=== PATIENT | male | born 1950 | race Caucasian/White ===

== ENCOUNTER 2016-11-05 13:15 | Inpatient (IN) | payer MEDICARE ==
[2016-11-05 13:35] VITALS: BMI 29.8
[2016-11-12] MEDS ORDERED: Sodium Chloride 0.9% 100 ML ONE ×2 (09:37→12:41)
[2016-11-12] MEDS ORDERED: Vancomycin HCl 1.5 GM, Admixture Fee 1 EACH in Sodium Chloride 0.9% 250 ML 300 ML IVPB SCH (09:45)
[2016-11-12] MEDS ORDERED: Diazepam 5 MG TAB PO PRN (10:26)
[2016-11-12] MEDS ORDERED: valACYclovir HCl 1 GM TAB PO PRN (10:26)
[2016-11-12] MEDS ORDERED: traMADol HCl 50 MG TAB PO PRN ×3 (10:26→10:45)
[2016-11-12] MEDS ORDERED: Fentanyl 100 MCG/2 ML VIAL SLOW IVP PRN ×2 (10:27)
[2016-11-12] MEDS ORDERED: HYDROcodone/Acetaminophen 10/325 mg Tablet PO PRN ×2 (10:27)
[2016-11-12] MEDS ORDERED: Promethazine HCl 25 MG/ML VIAL IM PRN ×3 (10:27→12:28)
[2016-11-12] MEDS ORDERED: Acetaminophen 325 MG TAB PO PRN (10:27)
[2016-11-12] MEDS ORDERED: diphenhydrAMINE HCl 25 MG CAP PO PRN ×2 (10:27→10:45)
[2016-11-12] MEDS ORDERED: Ondansetron HCl/PF 4 MG/2 ML Vial IVP PRN ×3 (10:27→12:28)
[2016-11-12] MEDS ORDERED: Zolpidem Tartrate 5 MG TAB PO PRN ×2 (10:27→10:45)
[2016-11-12] MEDS ORDERED: Tranexamic Acid 1,000 MG in Sodium Chloride 0.9% 100 ML IVPB SCH ×2 (10:30→12:30)
[2016-11-12] MEDS ORDERED: diphenhydrAMINE HCl 50 MG/ML 1 ML VIAL IVP PRN (10:45)
[2016-11-12] MEDS ORDERED: Naloxone HCl 0.4 mg/ml Vial IV PRN (10:45)
[2016-11-12] MEDS ORDERED: Eucerin (Mineral Oil/Petrolatum,White) 30 gm Jar TOP PRN (10:45)
[2016-11-12] MEDS ORDERED: HYDROcodone/Acetaminophen 5/325 mg Tablet PO PRN (10:45)
[2016-11-12] MEDS ORDERED: diphenhydrAMINE HCl 50 MG/ML 1 ML VIAL IM PRN (10:45)
[2016-11-12] MEDS ORDERED: Naloxone HCl 0.4 mg/ml Vial IVP PRN (10:45)
[2016-11-12] MEDS ORDERED: Bupivacaine 0.25% 10 ML VIAL EPIDURAL PRN (10:45)
[2016-11-12] MEDS ORDERED: Ketorolac Tromethamine 30 MG/ML VIAL IVP PRN (10:45)
[2016-11-12] MEDS ORDERED: Fentanyl/Bupivacaine 250 ML in Premix Bag 1 BAG EPIDURAL SCH (10:45)
[2016-11-12] MEDS ORDERED: Promethazine HCl 25 MG SUPP PR PRN (10:45)
[2016-11-12] MEDS ORDERED: Propofol 200 MG/20 ML VIAL ONE (10:57)
[2016-11-12] MEDS ORDERED: Lidocaine 1% PF 5 ML VIAL ONE (10:57)
[2016-11-12] MEDS ORDERED: Ondansetron HCl/PF 4 MG/2 ML Vial ONE (10:57)
[2016-11-12] MEDS ORDERED: Glycopyrrolate 0.2 MG/ML 5 ML SYRINGE ONE (10:57)
[2016-11-12] MEDS ORDERED: Tadalafil [Cialis] 20 MG PO SCH (11:30)
[2016-11-12] MEDS ORDERED: Bupivacaine 0.25% HCL 30 ML VIAL ONE (12:00)
[2016-11-12] MEDS ORDERED: Fentanyl 100 MCG/2 ML VIAL ONE (12:02)
[2016-11-12] MEDS ORDERED: Promethazine HCl 25 MG/ML VIAL SLOW IVP PRN (12:28)
[2016-11-12] MEDS ORDERED: Fentanyl/Bupivacaine 250 ML EPIDURAL ONE (12:30)
[2016-11-12] MEDS ORDERED: Ketorolac Tromethamine 30 MG/ML VIAL IM SCH (14:00)
--- NOTE | 2016-11-12 14:10 | RAD ---
TWO VIEWS LEFT HIP: Comparison: None. History: Status post left hip arthroplasty. FINDINGS: Two views of the left hip shows no evidence of acute fracture or dislocation. Mild soft tissue swell ing is seen and is from recent surgery. IMPRESSION: Status post left hip arthroplasty without evidence of complication. POS: [facility]
--- NOTE | 2016-11-12 14:15 | OP ---
PREOPERATIVE DIAGNOSIS: Avascular necrosis and degenerative arthritis of the left hip. POSTOPERATIVE DIAGNOSIS: Avascular necrosis and degenerative arthritis of the left hip. PROCEDURE PERFORMED: Left total hip arthroplasty using a [place] Accolade #3 stem, standard created a -5 head, a 54 mm Tritanium cup with a 36 mm X3 polyethylene liner. SURGEON: Michael Soria M.D. TENNIS PLAYER: Brendon Malone PA-C. BLOOD LOSS: 200 mL SPECIMEN: None. DRAINS: None. COMPLICATIONS: None. PROCEDURE IN DETAIL: After informed consent was obtained in the preoperative holding area, the sruthi ent was taken to the operative suite where general anesthesia was induced. The patient was then pos itioned in the lateral decubitus position. The hip was then prepped and draped in usual sterile fas hion. The patient received preoperative antibiotics. Prior to incision, time-out was called and ana ramirez members of the surgical team agreed upon site, surgeon, and patient. After this, a longitudinal i ncision was made directly over the trochanter, noted by palpation extending 2 fingerbreadths above a nd below the trochanter. The deeper subcutaneous layer was undermined with Bovie electrocautery. T he iliotibial band was encountered and incised sharply and the plane below this was developed bluntl y. A Charnley retractor was placed to hold this opened. The lateral aspect of the trochanter and t he abductor muscles were encountered and then reflected anteriorly off the trochanter using Bovie el ectrocautery. Once this was completed, the anterior capsule was then encountered and identified and copious capsulotomy was carried out, exposing the femoral neck and head. Dislocation maneuver was then performed and an in situ provisional neck cut was then made using the oscillating saw. Attenti on was then turned to acetabular preparation and sequential reaming was carried out up to the approp riate diameter and a trial was then malleted into place with good firm resistance and no pullout. T he permanent acetabular shell was then malleted squarely into place, as was the appropriate liner. Once completed, the wound was copiously irrigated and attention was then turned to femoral preparati on. Flexion and external rotation was performed of the exposed thigh and femoral elevators were the n placed at the proximal aspect of the wound. Canal finder was used to establish the length of the canal and sequential reaming was carried out, followed by broaching. Once the appropriate stability was established with the trial broaches with both flexion, extension and rotational stability, we d id trial with neutral and 2 mm offset incremental necks. Once the appropriate size was decided upon , with good stability noted with flexion, extension, internal and external rotation and shuck being negative, we removed the femoral trial broach and malletted into place the permanent prosthesis with good firm fit, which was also stable to rotation. Again, the hip felt very stable to flexion, exte nsion, internal and external rotation. Leg lengths appeared near anatomic clinically and we were qu ite happy with prosthesis placement. Copious irrigation was then carried out through the entirety o f the wound. Primary closure of the abductors was accomplished with interrupted #2 Vicryl figure-of -eight stitches and the IT band was then closed with interrupted #2 Vicryl, oversewn with a #2 runni ng barbed Quill stitch. Subcutaneous fascia was closed with running barbed Quill stitch and a subcu ticular Monocryl barbed Quill stitch was used for skin closure and augmented with skin cement. A st erile dressing was applied. The procedure was terminated without any complication. All counts were correct. The patient was awakened in the operative suite and taken to the recovery room in stable condition.
[2016-11-12] MEDS: Sodium Chloride 0.9% 1,000 ML IV SCH ×2 (16:00→20:50)
--- NOTE | 2016-11-12 16:20 | PDOC.PN ---
- Subjective Encounter Start Date: 11/12/16 Encounter Start Time: 16:18 Pt seen for management of medical comorbidities, including dyslipidemia. Denies chest pain, shortness of breath, fevers or chills. - Objective MAR Reviewed: Yes Vital Signs & Weight: Vital Signs (12 hours) Temp Pulse Resp BP Pulse Ox 11/12/16 14:00 98.1 F 91 16 104/66 92 L Weight Weight 185 lb Additional Labs: Accuchecks 11/12/16 09:50 POC Glucose 117 H Phys Exam - Physical Examination Constitutional: NAD HEENT: moist MMs Neck: supple Respiratory: clear to auscultation bilateral Cardiovascular: RRR Gastrointestinal: soft s/p L hip surgery Psychiatric: normal affect Dx/Plan (1) Dyslipidemia Code(s): E78.5 - HYPERLIPIDEMIA, UNSPECIFIED Status: Chronic (2) GERD (gastroesophageal reflux disease) Code(s): K21.9 - GASTRO-ESOPHAGEAL REFLUX DISEASE WITHOUT ESOPHAGITIS Status: Chronic - Plan PT/OT * . Continue statin, PPI. s/p L hip surgery. DVT prophylaxis and pain management per orthopedic surgery. Code status; Full Review of Systems - Review of Systems Constitutional: negative: Fever, Chills, Sweats, Weakness, Malaise Respiratory: negative: Cough, Dry, Shortness of Breath, Hemoptysis, SOB with Excertion, Pleuritic Pain, Sputum, Wheezing Cardiovascular: negative: Chest Pain, Palpitations, Orthopnea, Paroxysmal Noc. Dyspnea, Edema, Light Headedness - Medications/Allergies Allergies/Adverse Reactions: Allergies Allergy/AdvReac Type Severity Reaction Status Date / Time No Known Allergies Allergy Unverified 11/12/16 15:12 Medications: Current Medications Acetaminophen (Tylenol) 650 mg PO Q4H PRN PRN Reason: DURAND/ T > 101F; Mild Pain (1-3) Hydrocodone Bitart/Acetaminophen ([place] 5/325) 1 tab PO Q4H PRN PRN Reason: Mild Pain 0-3 Hydrocodone Bitart/Acetaminophen ([place] 5/325) 2 tab PO Q4H PRN PRN Reason: For Moderate Pain 4-6 Amitriptyline HCl (Elavil) 25 mg PO HS [facility] Aspirin (Aspirin) 325 mg PO BID [facility] Atorvastatin Calcium (Lipitor) 40 mg PO HS [facility] Bupivacaine HCl (Marcaine) 5 ml EPIDURAL ONE PRN PRN Reason: UNCONTROLLED PAIN Stop: 11/12/16 23:00 Cefazolin Sodium (Ancef) 2 gm SLOW IVP 0200,1000,1800 [facility] Stop: 11/13/16 02:01 Diphenhydramine HCl (Benadryl) 25 mg PO Q3H PRN PRN Reason: Itching Diphenhydramine HCl (Benadryl) 25 mg IM Q3H PRN PRN Reason: Itching Diphenhydramine HCl (Benadryl) 25 mg IVP Q3H PRN PRN Reason: Itching Ferrous Gluconate (Fergon) 324 mg PO BID-[facility] Sodium Chloride (Normal Saline 0.9%) 1,000 mls @ 100 mls/hr IV .Q10H [facility] Last Admin: 11/12/16 16:00 Dose: Not Given Fentanyl Citrate 250 ml/ (Device) 250 mls @ 6 mls/hr EPIDURAL INF [facility] Iron/Minerals/Multivitamins (Theragran M) 1 tab PO DAILY [facility] Ketorolac Tromethamine (Toradol) 15 mg IM Q8HR [facility] Stop: 11/14/16 14:01 Last Admin: 11/12/16 15:58 Dose: 15 mg Mineral Oil/White Petrolatum (Eucerin Cream) 0 gm TOP PRN PRN PRN Reason: Itching Naloxone HCl (Narcan) 0.2 mg IV Q5MIN PRN PRN Reason: RR <=8 OR OBTUNDED/UNAROUSABLE Naloxone HCl (Narcan) 0.1 mg IVP Q15MIN PRN PRN Reason: URINARY RETENTION Ondansetron HCl (Zofran) 4 mg IVP Q6H PRN PRN Reason: Nausea/Vomiting Pantoprazole Sodium (Protonix) 40 mg PO HS [facility] Gluc Light/Chondro Light A /Vit C/Mn [ Glucosamine 1,500 Complex Capsule] 0 each PO DAILY [facility] Tadalafil [Cialis] (20 Mg) 0 each PO ASDIR [facility] Pregabalin (Lyrica) 300 mg PO BID [facility] Promethazine HCl (Phenergan) 12.5 mg IM Q4H PRN PRN Reason: Nausea/Vomiting Promethazine HCl (Phenergan Suppository) 25 mg [place] Q4H PRN PRN Reason: Nausea/Vomiting Senna/Docusate Sodium (Senokot S) 2 tab PO BID [facility] Sodium Chloride (Flush - Normal Saline) 10 ml IVF PRN PRN PRN Reason: Saline Flush Tramadol HCl (Ultram) 50 mg PO Q6H PRN PRN Reason: Mild Pain 1-3 Tramadol HCl (Ultram) 100 mg PO Q6H PRN PRN Reason: Moderate Pain 4-6 Valacyclovir HCl (Valtrex) 1 gm PO PRN PRN PRN Reason: CANKER SORES Zolpidem Tartrate (Ambien) 5 mg PO HSPRN PRN PRN Reason: Insomnia
[2016-11-12] MEDS: HYDROcodone/Acetaminophen 5/325 mg Tablet PO PRN (17:19)
[2016-11-12] MEDS: Amitriptyline HCl 25 MG TAB PO SCH (20:50)
[2016-11-12] MEDS: Pregabalin 75 MG CAP PO SCH (20:50)
[2016-11-12] MEDS: Atorvastatin Calcium 40 MG TAB PO SCH (20:50)
[2016-11-12] MEDS: Aspirin 325 MG TAB PO SCH (20:51)
[2016-11-13] MEDS: HYDROcodone/Acetaminophen 5/325 mg Tablet PO PRN ×2 (05:12→13:32)
[2016-11-13] MEDS: traMADol HCl 50 MG TAB PO PRN ×2 (05:43→11:09)
[2016-11-13] MEDS: Ketorolac Tromethamine 30 MG/ML VIAL IVP PRN ×2 (05:43→14:20)
[2016-11-13 05:52] LABS: Hematocrit 37.1 % (42.0-52.0); Red Blood Cell (RBC) Count 3.83 mill/uL (4.70-6.10); White Blood Cell (WBC) Count 7.9 thou/uL (4.8-10.8)
[2016-11-13] MEDS: Sodium Chloride 0.9% 1,000 ML IV SCH ×3 (07:53→21:02)
[2016-11-13] MEDS: Senokot S 8.6-50 MG TAB PO SCH ×2 (08:25→19:35)
[2016-11-13] MEDS: Ferrous Gluconate 324 MG TAB PO SCH ×2 (08:25→19:35)
[2016-11-13] MEDS: Multivitamin W/ Minerals 1 TAB PO SCH (08:25)
[2016-11-13] MEDS: Aspirin 325 MG TAB PO SCH ×2 (08:25→19:34)
[2016-11-13] MEDS: Pregabalin 75 MG CAP PO SCH ×2 (08:30→19:36)
[2016-11-13] MEDS ORDERED: VIT C PO SCH (09:00)
[2016-11-13] MEDS ORDERED: MULTIVITAMIN PO SCH (09:00)
[2016-11-13] MEDS ORDERED: IRON MINERALS PO SCH (09:00)
[2016-11-13] MEDS ORDERED: GLUC SU PO SCH (09:00)
[2016-11-13] MEDS ORDERED: CHONDRO SU A PO SCH (09:00)
[2016-11-13] MEDS ORDERED: [UNRECOGNIZED DRUG - OTHER] PO SCH (09:00)
--- NOTE | 2016-11-13 14:13 | PDOC.PN ---
- Subjective Encounter Start Date: 11/13/16 Encounter Start Time: 09:00 Pt seen for followup re; dyslipidemia. Says he feels well. No chest pain, shortness of breath, fevers or chills. - Objective MAR Reviewed: Yes Vital Signs & Weight: Vital Signs (12 hours) Temp Pulse Resp BP BP Pulse Ox 11/13/16 11:18 98.4 F 109 H 18 121/79 92 L 11/13/16 08:00 99.2 F 117 H 18 11/13/16 07:23 99.2 F 117 H 18 125/64 92 L 11/13/16 05:48 111 H 20 134/84 11/13/16 04:46 98.4 F 112 H 16 155/98 H 94 L Weight Admit Weight 185 lb Weight 185 lb I&O: 11/12/16 11/13/16 11/14/16 06:59 06:59 06:59 Intake Total 1800 Output Total 1400 Balance 400 Result Diagrams: 11/13/16 05:13 Phys Exam - Physical Examination Constitutional: NAD HEENT: moist MMs, oral pharynx no lesions Neck: supple Respiratory: no wheezing, no rales, no rhonchi, clear to auscultation bilateral Cardiovascular: RRR, no rub Neurological: moves all 4 limbs Psychiatric: normal affect Dx/Plan (1) Dyslipidemia Code(s): E78.5 - HYPERLIPIDEMIA, UNSPECIFIED Status: Chronic (2) GERD (gastroesophageal reflux disease) Code(s): K21.9 - GASTRO-ESOPHAGEAL REFLUX DISEASE WITHOUT ESOPHAGITIS Status: Chronic - Plan PT/OT, out of bed/ambulate * . Continue statin. Review of Systems - Review of Systems Constitutional: negative: Fever, Chills, Sweats, Weakness, Malaise Respiratory: negative: Cough, Dry, Shortness of Breath, Hemoptysis, SOB with Excertion, Pleuritic Pain, Sputum, Wheezing Cardiovascular: negative: Chest Pain, Palpitations, Orthopnea, Paroxysmal Noc. Dyspnea, Edema, Light Headedness - Medications/Allergies Allergies/Adverse Reactions: Allergies Allergy/AdvReac Type Severity Reaction Status Date / Time No Known Allergies Allergy Unverified 11/12/16 15:12 Medications: Current Medications Acetaminophen (Tylenol) 650 mg PO Q4H PRN PRN Reason: DURAND/ T > 101F; Mild Pain (1-3) Hydrocodone Bitart/Acetaminophen ([place] 5/325) 1 tab PO Q4H PRN PRN Reason: Mild Pain 0-3 Hydrocodone Bitart/Acetaminophen ([place] 5/325) 2 tab PO Q4H PRN PRN Reason: For Moderate Pain 4-6 Last Admin: 11/13/16 13:32 Dose: 2 tab Amitriptyline HCl (Elavil) 25 mg PO HS [facility] Last Admin: 11/12/16 20:50 Dose: 25 mg Aspirin (Aspirin) 325 mg PO BID [facility] Last Admin: 11/13/16 08:25 Dose: 325 mg Atorvastatin Calcium (Lipitor) 40 mg PO HS [facility] Last Admin: 11/12/16 20:50 Dose: 40 mg Diphenhydramine HCl (Benadryl) 25 mg PO Q3H PRN PRN Reason: Itching Last Admin: 11/13/16 11:13 Dose: 25 mg Diphenhydramine HCl (Benadryl) 25 mg IM Q3H PRN PRN Reason: Itching Diphenhydramine HCl (Benadryl) 25 mg IVP Q3H PRN PRN Reason: Itching Ferrous Gluconate (Fergon) 324 mg PO BID-[facility] Last Admin: 11/13/16 08:25 Dose: 324 mg Sodium Chloride (Normal Saline 0.9%) 1,000 mls @ 100 mls/hr IV .Q10H [facility] Last Admin: 11/13/16 13:35 Dose: Not Given Fentanyl Citrate 250 ml/ (Device) 250 mls @ 6 mls/hr EPIDURAL INF [facility] Iron/Minerals/Multivitamins (Theragran M) 1 tab PO DAILY [facility] Last Admin: 11/13/16 08:25 Dose: 1 tab Ketorolac Tromethamine (Toradol) 15 mg IVP Q6H PRN PRN Reason: .MODERATE PAIN 4-6 Stop: 11/17/16 16:44 Last Admin: 11/13/16 05:43 Dose: 15 mg Mineral Oil/White Petrolatum (Eucerin Cream) 0 gm TOP PRN PRN PRN Reason: Itching Naloxone HCl (Narcan) 0.2 mg IV Q5MIN PRN PRN Reason: RR <=8 OR OBTUNDED/UNAROUSABLE Naloxone HCl (Narcan) 0.1 mg IVP Q15MIN PRN PRN Reason: URINARY RETENTION Ondansetron HCl (Zofran) 4 mg IVP Q6H PRN PRN Reason: Nausea/Vomiting Pantoprazole Sodium (Protonix) 40 mg PO HS [facility] Last Admin: 11/12/16 20:49 Dose: 40 mg Pregabalin (Lyrica) 300 mg PO BID [facility] Last Admin: 11/13/16 08:30 Dose: Not Given Promethazine HCl (Phenergan) 12.5 mg IM Q4H PRN PRN Reason: Nausea/Vomiting Promethazine HCl (Phenergan Suppository) 25 mg [place] Q4H PRN PRN Reason: Nausea/Vomiting Senna/Docusate Sodium (Senokot S) 2 tab PO BID [facility] Last Admin: 11/13/16 08:25 Dose: 2 tab Sodium Chloride (Flush - Normal Saline) 10 ml IVF PRN PRN PRN Reason: Saline Flush Tramadol HCl (Ultram) 50 mg PO Q6H PRN PRN Reason: Mild Pain 1-3 Tramadol HCl (Ultram) 100 mg PO Q6H PRN PRN Reason: Moderate Pain 4-6 Last Admin: 11/13/16 11:09 Dose: 100 mg Valacyclovir HCl (Valtrex) 1 gm PO PRN PRN PRN Reason: CANKER SORES Zolpidem Tartrate (Ambien) 5 mg PO HSPRN PRN PRN Reason: Insomnia
[2016-11-13] MEDS: Atorvastatin Calcium 40 MG TAB PO SCH (19:34)
[2016-11-13] MEDS: Amitriptyline HCl 25 MG TAB PO SCH (19:35)
[2016-11-14 05:21] LABS: Hematocrit 37.2 % (42.0-52.0); Mean Platelet Volume 8.1 fL (7.4-10.4); Red Blood Cell (RBC) Count 3.83 mill/uL (4.70-6.10); White Blood Cell (WBC) Count 9.2 thou/uL (4.8-10.8)
[2016-11-14] MEDS: HYDROcodone/Acetaminophen 5/325 mg Tablet PO PRN ×3 (07:31→19:07)
[2016-11-14] MEDS: Ferrous Gluconate 324 MG TAB PO SCH ×2 (07:32→15:34)
--- NOTE | 2016-11-14 08:05 | CT ---
PRELIMINARY REPORT/[facility]/EMERGENCY AFTER HOURS PROCEDURE: EXAM: CT Angiography Chest With Intravenous Contrast EXAM DATE/TIME: Exam ordered 11/14/2016 1:21 AM CLINICAL HISTORY: 66 years old, male; Signs and symptoms; Other: Elevated heart rate; Patient HX: Eval for possible pe ; Increased heart rate; Pt had hip surgery 2 days ago. Pt denies chest pain or SOB TECHNIQUE: Axial computed tomographic angiography images of the chest with intravenous contrast using pulmonary embolism protocol. Coronal reformatted images were created and reviewed. COMPARISON: No relevant prior studies available. FINDINGS: Pulmonary arteries: There is no evidence of peripheral filling defects within the pulmonary arterial circulation to suggest pulmonary embolism. Aorta: No acute findings. No thoracic aortic aneurysm. Lungs: There is subpleural atelectasis of the dependent portions of the lungs. No mass. Pleural space: Normal. No significant effusion. No pneumothorax. Heart: The cardiac structures are normal. No significant pericardial effusion. No evidence of RV dys function. Mediastinum: The trachea is normal. Thyroid: The visualized thyroid gland is unremarkable. Bones/joints: No acute fracture. No dislocation. Soft tissues: Normal. Lymph nodes: Normal. No enlarged lymph nodes. Liver: There is a diffuse decrease in hepatic parenchymal density, consistent with fatty infiltratio n. IMPRESSION: There is no CT evidence of acute pulmonary embolism. Thank you for allowing us to participate in the care of your patient. Dictated and Authenticated by: Mook Avelar MD 11/14/2016 1:49 AM Central Time ([place] \T\ [place]) FINAL REPORT CT PULMONARY ANGIOGRAM WITH IV CONTRAST AND 3D POSTPROCESSING: I agree with the preliminary report given by Dr. Mook Avelar of [facility]. POS: [facility]
[2016-11-14 08:13] LABS: Bilirubin Negative (Negative); Blood, Urine Moderate (Negative); Glucose, Urine (Dipstick) Negative (Negative); Ketone, Urine Negative (Negative); Nitrite Negative (Negative); Protein, Urine (Dipstick) 30 mg/dL (Neg-Trace); Urobilinogen 0.2 mg/dL (0.2-1.0)
[2016-11-14 08:16] LABS: Bacteria/HPF None Seen HPF (None Seen); Hyaline Casts/LPF 0-3 HYALINE CAST LPF (0-3 Hyaline); RBC/HPF 21-50 HPF (0-3); Squamous Epithelial 0-3 HPF (0-3); WBC/HPF 0-3 HPF (0-3)
[2016-11-14] MEDS: Senokot S 8.6-50 MG TAB PO SCH ×2 (08:25→20:25)
[2016-11-14] MEDS: Pregabalin 75 MG CAP PO SCH ×2 (08:26→20:22)
[2016-11-14] MEDS: Multivitamin W/ Minerals 1 TAB PO SCH (08:26)
[2016-11-14] MEDS: Aspirin 325 MG TAB PO SCH ×2 (08:26→20:24)
[2016-11-14 08:56] LABS: Anion Gap 12 mmol/L (10-20); BUN (Urea Nitrogen) 17 mg/dL (8.4-25.7); Calc. Creatinine Clearance 75 mL/min (70-130); Calcium 8.5 mg/dL (7.8-10.44); Carbon Dioxide 22 mmol/L (23-31); Chloride 103 mmol/L (98-107); Estimated GFR-MDRD 64
[2016-11-14] MEDS: traMADol HCl 50 MG TAB PO PRN ×2 (09:23→15:34)
[2016-11-14] MEDS: Sodium Chloride 0.9% 1,000 ML IV SCH ×2 (11:23→23:22)
--- NOTE | 2016-11-14 13:10 | PDOC.PN ---
- Subjective Encounter Start Date: 11/14/16 Encounter Start Time: 08:20 Pt seen for followup re: dyslipidemia. Has a noticeable tremor today, reports he takes metoprolol for it. No chest pain or shortness of breath. - Objective MAR Reviewed: Yes Vital Signs & Weight: Vital Signs (12 hours) Temp Pulse Pulse Pulse Resp BP BP 11/14/16 12:39 98.9 F 69 16 11/14/16 10:50 116 H 102 H 122/79 11/14/16 08:00 99.2 F 119 H 18 11/14/16 07:48 99.2 F 119 H 18 11/14/16 04:13 99.3 F 120 H 18 108/72 11/14/16 02:37 99.2 F 129 H 20 BP Pulse Ox Pulse Ox Pulse Ox 11/14/16 12:39 126/76 92 L 11/14/16 10:50 86 L 92 L 11/14/16 08:00 11/14/16 07:48 143/91 H 93 L 11/14/16 04:13 97 11/14/16 02:37 91 L Weight Admit Weight 185 lb Weight 185 lb I&O: 11/13/16 11/14/16 11/15/16 06:59 06:59 06:59 Intake Total 1800 Output Total 1400 1600 Balance 400 -1600 Result Diagrams: 11/14/16 04:38 11/14/16 04:36 Phys Exam - Physical Examination Constitutional: NAD HEENT: moist MMs Neck: supple Respiratory: clear to auscultation bilateral Cardiovascular: RRR Gastrointestinal: soft, positive bowel sounds s/p L hip surgery Neurological: moves all 4 limbs tremor Psychiatric: normal affect Skin: no rash Dx/Plan (1) Dyslipidemia Code(s): E78.5 - HYPERLIPIDEMIA, UNSPECIFIED Status: Chronic (2) GERD (gastroesophageal reflux disease) Code(s): K21.9 - GASTRO-ESOPHAGEAL REFLUX DISEASE WITHOUT ESOPHAGITIS Status: Chronic (3) Essential tremor Code(s): G25.0 - ESSENTIAL TREMOR Status: Chronic - Plan * . Start metoprolol. Pt had CTA overnight to r/o PE (triggered by tachycardia). Continue statin. Review of Systems - Review of Systems Respiratory: negative: Cough, Dry, Shortness of Breath, Hemoptysis, SOB with Excertion, Pleuritic Pain, Sputum, Wheezing Cardiovascular: negative: Chest Pain, Palpitations, Orthopnea, Paroxysmal Noc. Dyspnea, Edema, Light Headedness Neurological: Other (Tremor) - Medications/Allergies Allergies/Adverse Reactions: Allergies Allergy/AdvReac Type Severity Reaction Status Date / Time No Known Allergies Allergy Unverified 11/12/16 15:12 Medications: Current Medications Acetaminophen (Tylenol) 650 mg PO Q4H PRN PRN Reason: DURAND/ T > 101F; Mild Pain (1-3) Last Admin: 11/14/16 00:31 Dose: 650 mg Hydrocodone Bitart/Acetaminophen ([place] 5/325) 1 tab PO Q4H PRN PRN Reason: Mild Pain 0-3 Hydrocodone Bitart/Acetaminophen ([place] 5/325) 2 tab PO Q4H PRN PRN Reason: For Moderate Pain 4-6 Last Admin: 11/14/16 07:31 Dose: 2 tab Amitriptyline HCl (Elavil) 25 mg PO [facility] Last Admin: 11/13/16 19:35 Dose: 25 mg Aspirin (Aspirin) 325 mg PO BID [facility] Last Admin: 11/14/16 08:26 Dose: 325 mg Atorvastatin Calcium (Lipitor) 40 mg PO [facility] Last Admin: 11/13/16 19:34 Dose: 40 mg Diphenhydramine HCl (Benadryl) 25 mg PO Q3H PRN PRN Reason: Itching Last Admin: 11/13/16 11:13 Dose: 25 mg Diphenhydramine HCl (Benadryl) 25 mg IM Q3H PRN PRN Reason: Itching Diphenhydramine HCl (Benadryl) 25 mg IVP Q3H PRN PRN Reason: Itching Ferrous Gluconate (Fergon) 324 mg PO BID-[facility] Last Admin: 11/14/16 07:32 Dose: 324 mg Sodium Chloride (Normal Saline 0.9%) 1,000 mls @ 100 mls/hr IV .Q10H [facility] Last Admin: 11/14/16 11:23 Dose: Not Given Fentanyl Citrate 250 ml/ (Device) 250 mls @ 6 mls/hr EPIDURAL INF [facility] Iron/Minerals/Multivitamins (Theragran M) 1 tab PO DAILY [facility] Last Admin: 11/14/16 08:26 Dose: 1 tab Ketorolac Tromethamine (Toradol) 15 mg IVP Q6H PRN PRN Reason: .MODERATE PAIN 4-6 Stop: 11/17/16 16:44 Last Admin: 11/13/16 14:20 Dose: 15 mg Metoprolol Tartrate (Lopressor) 25 mg PO BID [facility] Metoprolol Tartrate (Lopressor) 25 mg PO ONE [facility] Mineral Oil/White Petrolatum (Eucerin Cream) 0 gm TOP PRN PRN PRN Reason: Itching Naloxone HCl (Narcan) 0.2 mg IV Q5MIN PRN PRN Reason: RR <=8 OR OBTUNDED/UNAROUSABLE Naloxone HCl (Narcan) 0.1 mg IVP Q15MIN PRN PRN Reason: URINARY RETENTION Ondansetron HCl (Zofran) 4 mg IVP Q6H PRN PRN Reason: Nausea/Vomiting Pantoprazole Sodium (Protonix) 40 mg PO HS [facility] Last Admin: 11/13/16 19:35 Dose: 40 mg Pregabalin (Lyrica) 300 mg PO BID [facility] Last Admin: 11/14/16 08:26 Dose: 300 mg Promethazine HCl (Phenergan) 12.5 mg IM Q4H PRN PRN Reason: Nausea/Vomiting Promethazine HCl (Phenergan Suppository) 25 mg [place] Q4H PRN PRN Reason: Nausea/Vomiting Senna/Docusate Sodium (Senokot S) 2 tab PO BID [facility] Last Admin: 11/14/16 08:25 Dose: 2 tab Sodium Chloride (Flush - Normal Saline) 10 ml IVF PRN PRN PRN Reason: Saline Flush Last Admin: 11/13/16 14:20 Dose: 10 ml Tramadol HCl (Ultram) 50 mg PO Q6H PRN PRN Reason: Mild Pain 1-3 Tramadol HCl (Ultram) 100 mg PO Q6H PRN PRN Reason: Moderate Pain 4-6 Last Admin: 11/14/16 09:23 Dose: 100 mg Valacyclovir HCl (Valtrex) 1 gm PO PRN PRN PRN Reason: CANKER SORES Zolpidem Tartrate (Ambien) 5 mg PO HSPRN PRN PRN Reason: Insomnia
[2016-11-14] MEDS ORDERED: Metoprolol Tartrate 50 MG TAB PO SCH (13:15)
[2016-11-14] MEDS ORDERED: ISOVUE-370 76%-LOCM 1 ML ONE (14:22)
[2016-11-14] MEDS: Amitriptyline HCl 25 MG TAB PO SCH (20:24)
[2016-11-14] MEDS: Atorvastatin Calcium 40 MG TAB PO SCH (20:24)
[2016-11-14] MEDS: Metoprolol Tartrate 25 MG TAB PO SCH (20:25)
[2016-11-15] MEDS ORDERED: HYDROcodone/Acetaminophen 10/325 mg Tablet PO PRN (01:51)
[2016-11-15] MEDS: HYDROcodone/Acetaminophen 10/325 mg Tablet PO PRN ×2 (02:04→08:21)
[2016-11-15 05:18] LABS: Hematocrit 36.8 % (42.0-52.0); Mean Platelet Volume 8.4 fL (7.4-10.4); Red Blood Cell (RBC) Count 3.77 mill/uL (4.70-6.10); White Blood Cell (WBC) Count 8.9 thou/uL (4.8-10.8)
[2016-11-15] MEDS: Multivitamin W/ Minerals 1 TAB PO SCH (08:20)
[2016-11-15] MEDS: Aspirin 325 MG TAB PO SCH (08:20)
[2016-11-15] MEDS: Metoprolol Tartrate 25 MG TAB PO SCH (08:21)
[2016-11-15] MEDS: Pregabalin 75 MG CAP PO SCH (08:21)
[2016-11-15] MEDS: Ferrous Gluconate 324 MG TAB PO SCH (08:21)
[2016-11-15] MEDS: Senokot S 8.6-50 MG TAB PO SCH (08:21)
[2016-11-15] MEDS: Sodium Chloride 0.9% 1,000 ML IV SCH (08:56)
[2016-11-15 10:26] VITALS: BP 115/74; TEMP 98.6
--- NOTE | 2016-11-15 15:52 | PDOC.PN ---
- Subjective Encounter Start Date: 11/15/16 Encounter Start Time: 08:00 Pt seen for followup re: tremulousness. Denies chest pain, shortness of breath , fevers or chills. No nausea or vomiting. - Objective Vital Signs & Weight: Vital Signs (12 hours) Temp Pulse Resp BP BP Pulse Ox 11/15/16 09:45 98.6 F 90 20 115/74 96 11/15/16 08:00 98.6 F 90 20 115/74 96 11/15/16 04:35 98.2 F 101 H 16 125/77 93 L Weight Admit Weight 185 lb Weight 185 lb I&O: 11/14/16 11/15/16 11/16/16 06:59 06:59 06:59 Intake Total 500 Output Total 1600 1150 Balance -1600 -650 Result Diagrams: 11/15/16 04:40 11/14/16 04:36 Phys Exam - Physical Examination Constitutional: NAD HEENT: moist MMs, oral pharynx no lesions Neck: supple Respiratory: no wheezing, no rales, no rhonchi, clear to auscultation bilateral Cardiovascular: RRR, no rub Gastrointestinal: soft, positive bowel sounds s/p L hip surgery Neurological: moves all 4 limbs Psychiatric: normal affect, A&O x 3 Skin: no rash Dx/Plan (1) Dyslipidemia Code(s): E78.5 - HYPERLIPIDEMIA, UNSPECIFIED Status: Chronic (2) GERD (gastroesophageal reflux disease) Code(s): K21.9 - GASTRO-ESOPHAGEAL REFLUX DISEASE WITHOUT ESOPHAGITIS Status: Chronic (3) Essential tremor Code(s): G25.0 - ESSENTIAL TREMOR Status: Chronic (4) Alcohol dependence with withdrawal Code(s): F10.239 - ALCOHOL DEPENDENCE WITH WITHDRAWAL, UNSPECIFIED Status: Suspected - Plan PT/OT, out of bed/ambulate * . Pt is being transferred to SNU at [place]. Pt is tremulous, denies excessive alcohol use but is also vague about usage. Pt started ton [facility] protocol, to be continued on comparable protocol at [place]. Review of Systems - Review of Systems Constitutional: negative: Fever, Chills, Sweats, Weakness, Malaise Respiratory: negative: Cough, Dry, Shortness of Breath, Hemoptysis, SOB with Excertion, Pleuritic Pain, Sputum, Wheezing Cardiovascular: negative: Chest Pain, Palpitations, Orthopnea, Paroxysmal Noc. Dyspnea, Edema, Light Headedness Gastrointestinal: negative: Nausea, Vomiting, Abdominal Pain, Diarrhea, Constipation, Melena, Hematochezia - Medications/Allergies Allergies/Adverse Reactions: Allergies Allergy/AdvReac Type Severity Reaction Status Date / Time No Known Allergies Allergy Unverified 11/12/16 15:12
== END 2016-11-15 10:46 | disposition swing bed (61) | DRG 470 ==
LOC: SURG A 11-12 08:57 → SJJU 11-12 12:54
PROVIDERS: ADMIT Orthopaedic Surgery; ATTEND Orthopaedic Surgery
PROC: 0SRB02Z Replacement of Left Hip Joint with Metal on Polyethylene Synthetic Substitute, Open Approach (ICD-10-PCS; principal; 2016-11-12)
PROC: 3E0T3CZ (ICD-10-PCS; 2016-11-12)
DX: M87.052 Idiopathic aseptic necrosis of left femur (principal); I10 Essential (primary) hypertension; F10.239 Alcohol dependence with withdrawal, unspecified; E78.5 Hyperlipidemia, unspecified; K21.9 Gastro-esophageal reflux disease without esophagitis; G25.0 Essential tremor; G47.33 Obstructive sleep apnea (adult) (pediatric); G47.00 Insomnia, unspecified; G89.29 Other chronic pain
CPT/HCPCS: 36415; 36416; 71275; 80048; 81003; 81015; 85027; 93005; 93010; C1776; G8978-GP-CK; G8979-GP-CI; G8987-GO-CJ; G8988-GO-CI; J1885; J2001; J2405; J2704; J3010; J3370; J7050; S0020

== ENCOUNTER 2017-07-23 07:58 | Outpatient (CLI) | payer MEDICARE ==
--- NOTE | 2017-07-23 11:07 | MRI ---
MRI CERVICAL SPINE WITHOUT CONTRAST: INDICATIONS: Ataxia. TECHNIQUE: Multiplanar, multisequential imaging of the cervical spine obtained. FINDINGS: The cervical vertebrae maintain height. There are degenerative disk changes. Loss of disk space is most prominent at the C4-C5, C5-C6, and C6-C7 levels. There are anterior osteophytes from the cervic al vertebrae. Slight retrolisthesis is seen at C4-C5 and at C5-C6. At C2-C3, no significant disk bulge or spondylosis. At C3-C4, disk bulge and spondylosis efface the anterior subarachnoid space. No evidence of cord imp ingement. There is right foraminal stenosis at this level due to facet and uncinate hypertrophy. At C4-C5, slight retrolisthesis, as noted above. Posterior disk bulge and spondylosis efface the ant erior subarachnoid space and abut the cord. Bilateral foraminal narrowing due to facet and uncinate hypertrophy. At C5-C6, slight retrolisthesis. Posterior disk bulge and spondylosis efface the anterior subarachno id space. Bilateral foraminal encroachment due to facet and uncinate hypertrophy. At C6-C7, disk bulge and spondylosis efface the anterior subarachnoid space. These changes are more prominent to the right of midline. There is right foraminal narrowing due to facet and uncinate hype rtrophy. Cord signal is normal. IMPRESSION: Posterior disk and spondylitic changes are most prominent at C4-C5, C5-C6, and C6-C7, as described ab ove. POS: [facility]
--- NOTE | 2017-07-23 11:48 | MRI ---
BRAIN MRI WITH AND WITHOUT CONTRAST: Date: 07/23/17 CLINICAL INDICATION: Ataxia. Reference made to head CT dated 06/03/17. FINDINGS: There is ventricular enlargement likely due to the degree of parenchymal atrophy. There is minimal pe riventricular white matter signal alteration, which may be on the basis of minimal chronic microvascu lar ischemic disease. No hemorrhagic susceptibility or evidence of acute territorial infarction. No p athologic intra-axial enhancement is visualized. The skull base flow-voids are maintained. IMPRESSION: 1. Prominent ventricular system which may be on the basis of compensatory dilatation from parenchyma l atrophy. There is minimal periventricular signal alteration which is favored to reflect minimal chr onic ischemic disease. The possibility of a minimal degree of transependymal CSF migration is not ent irely excluded. Recommend clinical correlation, as size of ventricular system does not correlate to d egree of intracranial pressure. 2. There is no acute territorial infarction. POS: [facility]
== END 2017-07-23 07:59 | disposition home or self-care (01) ==
LOC: SCSMRI 07:58
PROVIDERS: ATTEND Psychiatry & Neurology Neurology
DX: M50.821 Other cervical disc disorders at C4-C5 level (principal); M46.92 Unspecified inflammatory spondylopathy, cervical region; G93.89 Other specified disorders of brain; R27.0 Ataxia, unspecified
CPT/HCPCS: 70553; 72141; 82565

== ENCOUNTER 2017-07-28 12:20 | Inpatient (IN) | payer MEDICARE ==
[2017-07-28 14:25] LABS: CKMB 0.6 ng/mL (0-6.6); Troponin I Less than 0.010 ng/mL (< 0.028)
--- NOTE | 2017-07-28 14:54 | CT ---
HEAD CT WITHOUT CONTRAST: Date: 07-28-17 Comparison: 06-03-17 History: Ataxia, difficulty balancing, dehydration, altered mental status. Technique: Serial axial CT imaging obtained at 5 mm intervals from vertex through the skull base with out contrast. FINDINGS: The imaged paranasal sinuses and mastoid air cells are well aerated. There is no displaced calvarial fracture, intracranial hemorrhage, midline shift, or mass effect. There is mild prominence of the chey tricular system, stable. IMPRESSION: No acute findings are seen. The ventricular system is prominent, but may be within normal limits give n the degree of focal volume loss. However, a subtle case of normal pressure hydrocephalus is a possi bility in the proper clinical setting. Clinical correlation is essential. POS: [facility]
[2017-07-28] MEDS ORDERED: Aspirin 325 MG TAB ONE (14:57)
[2017-07-28 15:19] LABS: Bilirubin Negative (Negative); Blood, Urine Negative (Negative); Clarity CLEAR (Clear); Glucose, Urine (Dipstick) 500 mg/dL (Negative); Leukocyte Negative (Negative); Nitrite Negative (Negative); Protein, Urine (Dipstick) Negative (Neg-Trace); Specific Gravity, Urine 1.014 (1.002-1.036); Urobilinogen 0.2 mg/dL (0.2-1.0); pH, Urine 5.5 (5.0-9.0)
[2017-07-28] MEDS ORDERED: Guaifenesin DM 100-10/5 ML UDCUP PO PRN (16:42)
[2017-07-28] MEDS ORDERED: Ondansetron ODT 4 MG TAB PO PRN (16:42)
[2017-07-28] MEDS ORDERED: Acetaminophen 325 MG TAB PO PRN (16:42)
[2017-07-28] MEDS ORDERED: Dextrose 5% in Water 1,000 ML IV PRN (17:43)
[2017-07-28] MEDS ORDERED: Dextrose 50% Abboject 50 ML SYRINGE IVP PRN (17:43)
[2017-07-28] MEDS: Sodium Chloride 0.9% 1,000 ML IV SCH (18:13)
--- NOTE | 2017-07-28 18:14 | RAD ---
TWO VIEW CHEST: HISTORY: Cough. COMPARISON: One view chest from earlier today, at 10:40 a.m. FINDINGS: The PA chest now demonstrates a hazy infiltrate in the right mid lung, in a perihilar distribution, s uggesting pneumonia. The left lung is clear. The heart and mediastinum are unremarkable. IMPRESSION: Evidence of right perihilar and mid lung pneumonia. POS: H
[2017-07-28] MEDS: HumaLOG 300 UNITS/3 ML VIAL SC PRN (18:42)
[2017-07-28] MEDS: Pregabalin 75 MG CAP PO SCH (21:13)
[2017-07-28] MEDS: Diazepam 5 MG TAB PO SCH (21:14)
[2017-07-28] MEDS: Amitriptyline HCl 100 MG TAB PO SCH (21:14)
[2017-07-28] MEDS: cefTRIAXone\\ROCEPHIN 1 GM in Sodium Chloride 0.9% 100 ML IVPB SCH (23:17)
[2017-07-28] MEDS: Azithromycin 500 MG in Sodium Chloride 0.9% 250 ML 250 ML IVPB SCH (23:17)
[2017-07-29] MEDS ORDERED: Metoprolol Tartrate 5 MG/5 ML VIAL IVP SCH (02:53)
[2017-07-29] MEDS: Sodium Chloride 0.9% 1,000 ML IV SCH ×3 (03:05→23:08)
[2017-07-29 04:56] LABS: Hemoglobin A1c 9.7 % (4.0-6.0)
[2017-07-29 04:58] LABS: #Eosinphils 0.1 thou/uL (0.0-0.7); #Lymphocytes 1.5 thou/uL (1.20-3.40); #Monocytes 0.6 thou/uL (0.11-0.59); #Neutrophils 7.1 thou/uL (1.40-6.50); %Basophils 0.3 % (0.0-1.0); %Eosinophils 1.2 % (0.0-10.0); %Lymphocytes 15.6 % (21.0-51.0); %Monocytes 6.1 % (0.0-10.0); %Neutrophils 76.8 % (42.0-75.0); Hemoglobin 14.6 g/dL (14.0-18.0); Mean Corpuscular HGB CONC 34.4 g/dL (32.0-36.0); Mean Corpuscular Hemoglobin 32.6 pg (27.0-31.0); Mean Corpuscular Volume 94.8 fl (80.0-94.0); Platelet Count 138 thou/uL (130-400); RBC Distribution Width 12.5 % (11.5-14.5); Red Blood Cell (RBC) Count 4.48 mill/uL (4.70-6.10); White Blood Cell (WBC) Count 9.3 thou/uL (4.8-10.8)
[2017-07-29 05:22] LABS: Anion Gap 12 mmol/L (10-20); BUN (Urea Nitrogen) 13 mg/dL (8.4-25.7); Calc. Creatinine Clearance 101 mL/min (70-130); Calcium 8.7 mg/dL (7.8-10.44); Carbon Dioxide 21 mmol/L (23-31); Cardiac Risk 5.5 (Less than 4.5); Chloride 108 mmol/L (98-107); Cholesterol 143 mg/dl (< 200 Desired); Estimated GFR-MDRD 86; Glucose 203 mg/dL (80-115); HDL Cholesterol 26 mg/dL (>60 Neg Risk); LDL Cholesterol, Calculated 44 mg/dL; Potassium 4.1 mmol/L (3.5-5.1); Sodium 137 mmol/L (136-145); Triglycerides 366 mg/dL (Less than 150)
--- NOTE | 2017-07-29 06:05 | HP ---
CHIEF COMPLAINT: Ataxia. HISTORY OF PRESENT ILLNESS: This patient reports that one month ago he started experiencing some dif ficulty with ataxia. He states he was starting to ride a bicycle for some exercise to lose weight, b ut found himself falling off of the bicycle, which he felt was inappropriate. His sister pointed out that he also tends to stumble a lot when doing other things including just walking. He had not real ly noticed that prior to that time. He has some associated dizziness and dry mouth. He was seen by his PCP, Dr. Paige Tucker, who referred him to Dr. Manuel. He did see Dr. Manuel and had an MRI of the brain and a C-spine MRI which only revealed some mild enlargement of the ventricles, possibly consistent with early normal pressure hydrocephalus in the appropriate clinical setting. The patien t was unsure if he was supposed to follow up with Dr. Manuel or if he was waiting for a phone call, but had not heard the results of the MRI yet. The patient reports that he was subsequently referred to Joey Beltre NP, in [place] for his ataxia. He was supposed to go there today. However, when he taran kens a day, he stated he felt "a little off," stated he felt very hot and sweaty and had a minor head ache. He went to his PCP and at that time, an ambulance was called and the patient was referred to [facility]ath in [place]. He believes his PCP spoke directly to Dr. Manuel, but he is not sure. He is al so not exactly sure why he was sent. He does state that while he was being examined by her, she was asked typical orientation questions and he knows that he gave the wrong date. At the time of the exa m, the patient states that he felt somewhat dizzy and generally warm. PAST MEDICAL HISTORY: The patient states he was diagnosed with diabetes mellitus three weeks ago. Roger quintero also has osteoarthritis affecting his spine. 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 He has history of insomnia and a familial tremor. He also reports that he has obstructive sleep apnea, but would rather than wear CPAP. PAST SURGICAL HISTORY: Left hip replacement, ORIF of the right tib/fib following fracture. He has h ad multiple trigger finger releases and carpal tunnel release. FAMILY HISTORY: Father had coronary artery disease with multiple myocardial infarctions, he also had diabetes and ultimately of cancer, which he believes started as an oropharyngeal cancer. His m other is alive, but suffers from severe dementia. His one brother of heart disease, awaiting tr ansplant. SOCIAL HISTORY: The patient denies tobacco abuse. He does report drinking about 2 beers per day, bu t denies any significant alcohol abuse in the past. He denies any recent drug use, but states he has smoked in the past. The patient is a . His primary care physician is Paige Tucker DO, i n [place]. The patient reports that he has DNR/DNI and his surrogate decision maker would be rhys s daughter, whose name is Kendra Harris and she is a nurse in [place], [place]. ALLERGIES: None. HOME MEDICATIONS: The patient was unable to remember his home medications or get verification. At t his time, the best confirmation is metformin 1000 mg p.o. q.a.m., diazepam 5 mg at bedtime p.r.n. for insomnia, amitriptyline 50 mg p.o. at bedtime, simvastatin 80 mg p.o. at bedtime, Lyrica 300 mg p.o. at bedtime, and omeprazole 40 mg p.o. at bedtime. REVIEW OF SYSTEMS: The patient reports that he has gradually had some weight gain following his left hip replacement, but nothing drastic. He does have the difficulty with sleep and states that he is on the amitriptyline and diazepam specifically for that. He also reports some difficulty swallowing, but relates that to a substantial dry mouth, which has been present over the last few weeks, he also does report some cough. He reports some numbness in his right foot, which is chronic. 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 He also admits to some depression since his 2 years ago. He repor ts that she has suffered for many years with Crohn's disease. He also does report some polydipsia re lated to a very dry mouth, but denies polyuria or nocturia. The remainder of a 10-system review is n egative. PHYSICAL EXAMINATION: VITAL SIGNS: Temperature is 98.1, pulse 97, respirations 16, O2 sat 97% on room air, blood pressure is 140/78. GENERAL APPEARANCE: Age appropriate male, in no distress. He is awake, alert, oriented, pleasant an d cooperative. HEENT: PERRL. No OP lesions. His oral mucosa is somewhat dry. NECK: Supple and symmetric without lymphadenopathy or JVD. CARDIOVASCULAR: Regular rate and rhythm without murmurs, gallops or rubs. LUNGS: Clear to auscultation bilaterally. Good chest wall expansion and air exchange. ABDOMEN: Soft, nontender, nondistended with positive bowel sounds. No masses or organomegaly. EXTREMITIES: Warm and dry with no edema. NEUROLOGIC: The patient appears to be appropriate in his conversation and speech. He does have an i ntention tremor of his upper extremities. He is generally able to stand side of the bed with eyes cl osed non-trace without difficulty. He has no focal weakness or numbness detected on exam. He was ab le to recall two of three words at 5 minutes and had an essentially normal clock-drawing test. IMAGING: A head CT was performed and was negative. EKG showed sinus rhythm with no significant ST o r T-wave changes. LABORATORY DATA: White count 14,000, hemoglobin 16.0, platelet count 169, 66% neutrophils, 2% bands. Sed rate was 3. Coags are normal. Sodium 131, potassium 5.1, chloride 99, CO2 of 17, BUN 23, crea tinine 1.32, glucose was 304. Liver enzymes were normal. Subsequently, a followup chest x-ray has b een ordered and that reveals some evidence of pneumonia on the right side. ASSESSMENT AND PLAN: 1. Ataxia. The patient's ataxia is unclear. He did have some slight enlargement of his ventricles on his MRI of the brain, which could potentially be early normal pressure hydrocephalus given the flaca kristine and the mild issues with his memory; however, the patient completely denies any urinary symptoms. Also concerned that the patient's recent diagnosis of diabetes and the fact that he appears to be s till somewhat poorly controlled, potentially affecting these things as well. I do not believe the erica mccloud is having an acute stroke. We will place him in the hospital and ask physical therapy to evalu ate him and get a Neurology consult and also check a sed rate. 2. Evidence of pneumonia. By virtue of the fact, the patient has had some cough, he has got a white count of 14,000, his chest x-ray showing some evidence of some right-sided infiltrate. We will star t Rocephin and azithromycin for community-acquired pneumonia. 3. Diabetes mellitus. Order repeat hemoglobin A1c. His records appear to indicate that he had one performed a few weeks ago, which was at 10.1, apparently this was around the time of his diagnosis. His records also indicate that he had a triglyceride of 693 at that time. 4. Sleep apnea. The patient has a history of sleep apnea, which he does not desire to treat with CP AP. He is on some psychotropic/sedating medications for his insomnia. Cause could be contributing t o his gait disturbance and his memory issues. Also concerning for the possibility of causing some co mplications of sleep apnea, we will need to address these after he is evaluated by Neurology as well. 5. Potential dehydration. The patient has slightly elevated creatinine. Looking at his previous re cords over the last year, it appears to be very slightly increasing and this is the highest creatinin e level that he has had, with his most recent being 1.23 on 07/15/2017. He has a dry oral mucosa and there is constant thirst. He is likely somewhat dehydrated secondary to the hyperglycemia. He also has some mild hyponatremia with this, which may improve with hydration.
[2017-07-29] MEDS: HumaLOG 300 UNITS/3 ML VIAL SC PRN ×3 (06:21→16:51)
[2017-07-29] MEDS ORDERED: Diazepam 5 MG TAB PO PRN (07:53)
--- NOTE | 2017-07-29 08:10 | PDOC.PN ---
- Subjective Encounter Start Date: 07/29/17 Encounter Start Time: 08:08 Feels some better. Still has cough and modest sputum production. Still has dry mouth. Has been on the Amitriptylline for three years without the dry mouth. - Objective Resuscitation Status: Resuscitation Status DNR:Do Not Resuscitate MAR Reviewed: Yes Vital Signs & Weight: Vital Signs (12 hours) Temp Pulse Resp BP BP Pulse Ox 07/29/17 08:00 97.7 F 107 H 20 142/79 H 88 L 07/29/17 04:00 97.7 F 104 H 18 119/73 95 07/29/17 03:00 123 H 129/70 07/29/17 00:00 98.5 F 105 H 18 126/82 94 L I&O: 07/28/17 07/29/17 07/30/17 06:59 06:59 06:59 Intake Total 2268 Output Total 600 Balance 1668 Result Diagrams: 07/29/17 04:23 07/29/17 04:23 Additional Labs: Accuchecks 07/29/17 07/28/17 07/28/17 05:29 20:18 16:47 POC Glucose 198 H 264 H 205 H Phys Exam - Physical Examination Constitutional: NAD HEENT: PERRLA, oral pharynx no lesions Respiratory: no wheezing, no rales, no rhonchi, clear to auscultation bilateral Cardiovascular: RRR, no significant murmur Borderline tachy Gastrointestinal: soft, non-tender, no distention, positive bowel sounds Musculoskeletal: no edema Neurological: non-focal Psychiatric: normal affect Skin: no rash Dx/Plan (1) Pneumonia Code(s): J18.9 - PNEUMONIA, UNSPECIFIED ORGANISM Status: Acute Qualifiers: Pneumonia type: due to unspecified organism Laterality: right Lung location: unspecified part of lung Qualified Code(s): J18.9 - Pneumonia, unspecified organism Plan: Treating for CAP. Given the very minor issues with focus and recall, I will check a legionella antigen. Sputum culture. F/U CXR this morning. Sats are good. (2) Altered mental status Code(s): R41.82 - ALTERED MENTAL STATUS, UNSPECIFIED Status: Acute Qualifiers: Altered mental status type: disorientation Qualified Code(s): R41.0 - Disorientation, unspecified Plan: Mild. Has had some gait issues for several weeks. May be part of the same complex. Checking legionella Ag. There is a diagnosis of EtOh abuse in the record, but the patient denies this and I tend to believe him, although this would account for a number of his findings. Neuro consult pending. (3) Gait disturbance Code(s): R26.9 - UNSPECIFIED ABNORMALITIES OF GAIT AND MOBILITY Status: Chronic Plan: Has started and eval with Neuro. Neuro consult pending. Had MRI with possible early NPH. PT/OT eval pending. 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 Not likely to account for other findings (i.e. not likely autonomic dysfunction or neuropathy related to the DM). Continue with metformin, accuchecks and SSI. (5) JENNIFFER (obstructive sleep apnea) Code(s): G47.33 - OBSTRUCTIVE SLEEP APNEA (ADULT) (PEDIATRIC) Status: Chronic Plan: Untreated. Patient does not want to wear the mask. (6) Degenerative disc disease, cervical Code(s): M50.30 - OTHER CERVICAL DISC DEGENERATION, UNSP CERVICAL REGION Status: Acute Plan: Confirmed on MRI. May be contributory to the gait issues. Await Neuro consult and PT eval. (7) Tachycardia Code(s): R00.0 - TACHYCARDIA, UNSPECIFIED Status: Acute Plan: Appears largely benign sinus tachycardia. I believe he had this with a previous admission. Check EKG. Sinus tach on monitor. Received a dose of labetolol last night when the rate got to 120. Unclear if he was sleeping and possible experiencing apnea at the time. Asymptomatic. - Plan continue antibiotics, DVT proph w/lovenox * .
[2017-07-29] MEDS: Metoprolol Tartrate 25 MG TAB PO SCH ×2 (08:53→21:08)
[2017-07-29] MEDS: metFORMIN 500 MG TAB PO SCH (08:53)
[2017-07-29] MEDS: Enoxaparin Sodium 40 MG/0.4 ML SYRINGE SC SCH (08:53)
[2017-07-29] MEDS: Aspirin 81 mg Enteric Coated Tablet PO SCH (08:53)
--- NOTE | 2017-07-29 13:30 | EKG ---
Test Reason : Blood Pressure : / mmHG Vent. Rate : 104 BPM Atrial Rate : 104 BPM P-R Int : 206 ms QRS Dur : 090 ms QT Int : 332 ms P-R-T Axes : 054 081 033 degrees QTc Int : 436 ms Sinus tachycardia Otherwise normal ECG When compared with ECG of 28-JUL-2017 13:37, (Unconfirmed) Nonspecific T wave abnormality now evident in Inferior leads Confirmed by FENG GOEL ([id number]) on 07/29/2017 1:30:38 PM Referred By: ISABELLA Confirmed By:FENG GOEL
[2017-07-29] MEDS ORDERED: Bisacodyl 10 MG SUPP PR PRN (15:47)
[2017-07-29 17:23] LABS: Legionella Urinary Ag Negative (Negative)
[2017-07-29 18:30] VITALS: BMI 32.2
[2017-07-29] MEDS ORDERED: Non-Formulary Item 1 EACH (Pregabalin [Lyrica] 300 MG) PO SCH (21:00)
[2017-07-29] MEDS ORDERED: Non-Formulary Item 1 EACH (Simvastatin [Simvastatin] 80 MG) PO SCH (21:00)
[2017-07-29] MEDS: Pregabalin 75 MG CAP PO SCH ×2 (21:06→22:07)
[2017-07-29] MEDS: Atorvastatin Calcium 40 MG TAB PO SCH (21:07)
[2017-07-29] MEDS: Amitriptyline HCl 25 MG TAB PO SCH (21:07)
[2017-07-29] MEDS: Diazepam 5 MG TAB PO SCH (21:08)
[2017-07-29] MEDS: cefTRIAXone\\ROCEPHIN 1 GM in Sodium Chloride 0.9% 100 ML IVPB SCH (21:08)
[2017-07-29] MEDS: Azithromycin 500 MG in Sodium Chloride 0.9% 250 ML 250 ML IVPB SCH (22:05)
[2017-07-29] MEDS: Amitriptyline HCl 100 MG TAB PO SCH (22:07)
[2017-07-30] MEDS: Sodium Chloride 0.9% 1,000 ML IV SCH ×3 (02:24→16:49)
[2017-07-30] MEDS: metFORMIN 500 MG TAB PO SCH (10:40)
[2017-07-30] MEDS: Enoxaparin Sodium 40 MG/0.4 ML SYRINGE SC SCH (10:41)
[2017-07-30] MEDS: Aspirin 81 mg Enteric Coated Tablet PO SCH (11:46)
[2017-07-30] MEDS: Metoprolol Tartrate 25 MG TAB PO SCH ×2 (11:46→21:01)
[2017-07-30] MEDS: HumaLOG 300 UNITS/3 ML VIAL SC PRN ×3 (11:49→21:42)
--- NOTE | 2017-07-30 12:59 | RAD ---
LUMBAR PUNCTURE WITH FLUOROSCOPIC GUIDANCE: DATE: 07/30/17. HISTORY: A 67-year-old male in whom there is clinical concern for normal-pressure hydrocephalus. High volume cap of 20 cc was requested. FINDINGS: Informed consent obtained prior to the procedure. Director Product Management imaging demonstrates a hip arthroplasty on t he left. There is multilevel mild disk space narrowing and lateral osteophyte formation within the l umbar spine. Lateral imaging of lumbar spine demonstrates multilevel lower lumbar spine facet hypert rophy as well as multilevel disk space narrowing and anterior osteophyte formation. The patient was placed in the oblique prone position on the fluoroscopic table and the skin overlying the L3-4 level was anesthetized with 1% buffered Lidocaine. With intermittent fluoroscopic guidance , a 20-gauge spinal needle was advanced into the thecal sac and removal of the stylette yields clear cerebrospinal fluid. Opening pressure is 19 cm of water. 20-21 cc of clear CSF was removed. The patient tolerated the procedure well. IMPRESSION: Successful lumbar puncture yielding 20-21 cc of clear cerebrospinal fluid. Opening pressure of 19 cm of water. POS: [facility]
--- NOTE | 2017-07-30 13:54 | RAD ---
PA AND LATERAL CHEST: HISTORY: Cough. COMPARISON: 07/28/2017 FINDINGS: Heart size is within normal limits. Aorta is mild tortuous. The right mid lung field infiltrative c hanges show some slight improvement, as compared to the prior examination, although the difference ma y largely be related to technique. IMPRESSION: Suggestion of some slight improvement to the right mid lung field parenchymal change. POS: [facility]
--- NOTE | 2017-07-30 14:47 | EKG ---
Test Reason : Blood Pressure : / mmHG Vent. Rate : 096 BPM Atrial Rate : 096 BPM P-R Int : 204 ms QRS Dur : 088 ms QT Int : 360 ms P-R-T Axes : 046 070 059 degrees QTc Int : 454 ms Normal sinus rhythm Normal ECG Confirmed by AZAR COWAN ([id number]), metropolitan editor FLYNN STONER ([id number]) on 07/30/2017 2:46:55 PM Referred By: Confirmed By:AZAR COWAN
--- NOTE | 2017-07-30 18:21 | PDOC.PN ---
- Subjective Encounter Start Date: 07/30/17 Encounter Start Time: 13:00 DOING BETTER IN TERMS OF HIS BREATHING. HE DOES HAVE A HEADACHE AFTER THE LP. - Objective Resuscitation Status: Resuscitation Status DNR:Do Not Resuscitate Vital Signs & Weight: Vital Signs (12 hours) Temp Pulse Pulse Pulse Resp BP BP 07/30/17 15:46 98 F 80 16 07/30/17 11:58 99 F 94 16 07/30/17 11:10 93 99 133/79 120/84 07/30/17 08:45 92 96 132/81 130/84 07/30/17 08:05 99 F 94 16 07/30/17 07:57 98.1 F 89 16 BP Pulse Ox 07/30/17 15:46 115/65 92 L 07/30/17 11:58 144/86 H 94 L 07/30/17 11:10 07/30/17 08:45 07/30/17 08:05 94 L 07/30/17 07:57 124/80 92 L Weight Weight 193 lb 11.2 oz I&O: 07/29/17 07/30/17 07/31/17 06:59 06:59 06:59 Intake Total 2268 3740 1599 Output Total 600 1975 500 Balance 1668 1765 1099 Result Diagrams: 07/29/17 04:23 07/29/17 04:23 Additional Labs: Accuchecks 07/30/17 07/30/17 07/29/17 17:03 05:51 20:23 POC Glucose 163 H 147 H 177 H Phys Exam - Physical Examination Constitutional: NAD HEENT: PERRLA, oral pharynx no lesions Neck: no JVD, supple Respiratory: no wheezing, no rales, no rhonchi, clear to auscultation bilateral Cardiovascular: RRR, no significant murmur Gastrointestinal: soft, non-tender, no distention, positive bowel sounds Musculoskeletal: no edema, pulses present Neurological: non-focal NOT AMBULATED DUE TO THE SPINAL DURAND. Psychiatric: normal affect Skin: no rash Dx/Plan (1) Pneumonia Code(s): J18.9 - PNEUMONIA, UNSPECIFIED ORGANISM Status: Acute Qualifiers: Pneumonia type: due to unspecified organism Laterality: right Lung location: unspecified part of lung Qualified Code(s): J18.9 - Pneumonia, unspecified organism Plan: DOING WELL. ANTICIPATE HE CAN BE CHANGED TO ORAL ANTIBIOTICS AND CONTINUE TREATMENT AN OUTPATIENT TOMORROW. (2) Altered mental status Code(s): R41.82 - ALTERED MENTAL STATUS, UNSPECIFIED Status: Acute Qualifiers: Altered mental status type: disorientation Qualified Code(s): R41.0 - Disorientation, unspecified (3) Gait disturbance Code(s): R26.9 - UNSPECIFIED ABNORMALITIES OF GAIT AND MOBILITY Status: Chronic Plan: NEURO ORDERED LP. OPENING PRESSURE WAS 19. PLAN IS APPARENTLY TO HAVE PT EVAL HIS GAIT AFTER THE LP TO SEE IF IT HAD AN IMPACT. CONSIDERING NPH. 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 NO CHANGE. (5) JENNIFFER (obstructive sleep apnea) Code(s): G47.33 - OBSTRUCTIVE SLEEP APNEA (ADULT) (PEDIATRIC) Status: Chronic (6) Degenerative disc disease, cervical Code(s): M50.30 - OTHER CERVICAL DISC DEGENERATION, UNSP CERVICAL REGION Status: Acute (7) Tachycardia Code(s): R00.0 - TACHYCARDIA, UNSPECIFIED Status: Acute Plan: BETTER WITH HIS USUAL BETA ANAM AND TREATMENT OF THE PNEUMONIA. - Plan * FLUIDS, CAFFEINE AND SUPINE. * POSSIBLE DC TOMORROW IF HEADACHE IS BETTER.
[2017-07-30] MEDS: Amitriptyline HCl 25 MG TAB PO SCH (21:01)
[2017-07-30] MEDS: Atorvastatin Calcium 40 MG TAB PO SCH (21:01)
[2017-07-30] MEDS: Diazepam 5 MG TAB PO SCH (21:02)
[2017-07-30] MEDS: Pregabalin 75 MG CAP PO SCH (21:02)
[2017-07-30] MEDS: cefTRIAXone\\ROCEPHIN 1 GM in Sodium Chloride 0.9% 100 ML IVPB SCH (21:03)
[2017-07-30] MEDS: Azithromycin 500 MG in Sodium Chloride 0.9% 250 ML 250 ML IVPB SCH (21:04)
[2017-07-31] MEDS: Metoprolol Tartrate 25 MG TAB PO SCH (08:51)
[2017-07-31] MEDS: Aspirin 81 mg Enteric Coated Tablet PO SCH (08:52)
[2017-07-31] MEDS: metFORMIN 500 MG TAB PO SCH (08:52)
[2017-07-31] MEDS: Enoxaparin Sodium 40 MG/0.4 ML SYRINGE SC SCH (08:54)
[2017-07-31] MEDS: Sodium Chloride 0.9% 1,000 ML IV SCH (09:46)
[2017-07-31 11:22] VITALS: BP 131/77; TEMP 97
[2017-07-31] MEDS: HumaLOG 300 UNITS/3 ML VIAL SC PRN (11:22)
--- NOTE | 2017-07-31 11:57 | DIS ---
DATE OF ADMISSION: 07/28/2017 DATE OF DISCHARGE: 07/31/2017. DISCHARGE DIAGNOSES: 1. Right pneumonia. 2. Altered mental status. 3. Gait disturbance. 4. Diabetes. 5. History of degenerative disk disease of the C-spine. 6. Obstructive sleep apnea. 7. Tachycardia. 8. Dyslipidemia. 9. History of gastroesophageal reflux disease. 10. History of essential tremor. HOSPITAL COURSE: This patient is a 67-year-old male who had been experiencing some problems with gai t and mild disequilibrium who presented to his PCP's office where he appeared to have some minor issu es with recall and possibly speech. The patient was subsequently transferred to the ER at our [facility] for further evaluation. On his initial interview, the patient did report that he had seen Dr. Yelitza jackson previously. Dr. Manuel ordered an MRI of the head and C-spine. The patient was noted to have some subtle enlargement of his ventricles, possibly consistent with a normal pressure hydrocephalus a nd some degenerative disk disease of the cervical spine. The patient was unaware of any results at [facility] time. The patient was found to have some resting tremor and some mild issues with recall, but ot herwise appeared to be fairly appropriate. He was admitted with ataxia, some mild altered mental sta tus with his history of diabetes, sleep apnea and dyslipidemia. He also had some evidence of some mi ld dehydration with elevation of the BUN and creatinine and he had a white count of 14,000 and a ches t x-ray that looked to be consistent with some right-sided pneumonia. HOSPITAL COURSE: The patient was started on some IV fluids, Rocephin and azithromycin for community- acquired pneumonia. His blood sugars were monitored and covered with sliding scale insulin. He had physical therapy evaluation and Neurology consult. Neurology ordered a lumbar puncture. This was pe rformed and the opening pressure was 19. Approximately 20 mL of fluid was removed. The patient had a post-tap headache, but after that resolved he was reevaluated by physical therapy. He continued to have some equilibrium and balance issues, but was better than he was prior to the LP. The patient h imself reported that he felt like he was better. He felt less achy, felt like his speech was better and he had less disequilibrium as well. His repeat chest x-ray showed some improvement. His breathi ng initially got a little worse after his admission and he required a brief amount of oxygen, but eduarda t improved quickly and he was able to come off of that and ambulate with maintaining good oxygen satu rations. Ultimately, the patient was felt to be stable for discharge to home to have outpatient donnell tment and follow up. The patient was also noted to have some tachycardia. He felt like this was relatively normal for him . He was started on Lopressor 25 mg 1 p.o. b.i.d. and had significant improvement with that. He marek erated it well and will be continued as an outpatient. DISPOSITION: The patient will be discharged to home. He is to have a normal activity level as adrian ated. He is to use good judgment with respect to his activities. He is to have a diabetic diet. PHYSICAL EXAMINATION: VITAL SIGNS: On the day of discharge, temperature is 97.4, pulse 79, respirations 18. He was 91-94% on room air, BP was 124/72. GENERAL: The patient appeared to be quite well and normal. He was sitting up eating breakfast with no major issues. HEART: Regular rate and rhythm. LUNGS: Clear to auscultation bilaterally with no wheezes or rales. ABDOMEN: Soft, nontender, nondistended, positive bowel sounds. EXTREMITIES: Warm and dry. DISCHARGE MEDICATIONS: The patient is to continue with his usual home medications to include amitrip tyline 50 mg at bedtime, diazepam 5 mg at bedtime p.r.n., omeprazole 40 mg p.o. at bedtime, pregabali n 300 mg at bedtime, simvastatin 80 mg at bedtime, metformin 500 mg p.o. q.a.m. Additionally, the p atient will have a prescription for Levaquin 750 mg 1 p.o. daily #4 and he will have metoprolol 25 mg 1 p.o. b.i.d. FOLLOWUP: The patient is to follow up with his PCP, Dr. Paige Tucker with the next available appo intment. He is also to follow up with Dr. Manuel as an outpatient within the next week to further p ursue evaluation for possible normal pressure hydrocephalus. He should return to the emergency department should he have any problems prior to that time.
== END 2017-07-31 13:20 | disposition home or self-care (01) | DRG 194 ==
LOC: ERS 12:20 → OBSVTOIN 16:31 → 2SE 16:31
PROVIDERS: ADMIT Internal Medicine; ATTEND Internal Medicine
PROC: 009U3ZX Drainage of Spinal Canal, Percutaneous Approach, Diagnostic (ICD-10-PCS; principal; 2017-07-29)
DX: J18.9 Pneumonia, unspecified organism (principal); E87.1 Hypo-osmolality and hyponatremia; R26.0 Ataxic gait; E11.9 Type 2 diabetes mellitus without complications; G47.00 Insomnia, unspecified; G47.33 Obstructive sleep apnea (adult) (pediatric); E86.0 Dehydration; M50.30 Other cervical disc degeneration, unspecified cervical region; E78.5 Hyperlipidemia, unspecified; R41.82 Altered mental status, unspecified; R00.0 Tachycardia, unspecified; G97.1 Other reaction to spinal and lumbar puncture; Z66 Do not resuscitate; Z87.891 Personal history of nicotine dependence; Z79.84 Long term (current) use of oral hypoglycemic drugs; Z79.899 Other long term (current) drug therapy; Z96.642 Presence of left artificial hip joint; Y84.4 Aspiration of fluid as the cause of abnormal reaction of the patient, or of later complication, without mention of misadventure at the time of the procedure; Y92.239 Unspecified place in hospital as the place of occurrence of the external cause
CPT/HCPCS: 36415; 36416; 62270; 70450; 71046; 80048; 80061; 81003; 82553; 83036; 84484; 85025; 85652; 87040; 87070; 87086; 87205; 87899; 93005; 93010; A4216; G8978-GP-CJ; G8978-GP-CK; G8979-GP-CH; G8979-GP-CJ; G8987-GO-CJ; G8988-GO-CI; G9168-GN-CK; G9169-GN-CI; J0456; J0696; J1650; J7050

== ENCOUNTER 2017-08-09 22:37 | Inpatient (IN) | payer MEDICARE ==
[2017-08-09 23:42] LABS: CK (CPK) 177 U/L (30-200); Lipase 54 U/L (8-78)
[2017-08-09 23:48] LABS: CKMB 10.1 ng/mL (0-6.6); Troponin I 1.262 ng/mL (< 0.028)
[2017-08-10] MEDS ORDERED: Insulin Regular 300 UNITS/3 ML VIAL ONE ×2 (01:17→14:13)
[2017-08-10] MEDS ORDERED: Nitroglycerin 0.4 MG TAB (25 Tab Bottle) ONE (01:17)
[2017-08-10] MEDS ORDERED: HYDROcodone/Acetaminophen 10/325 mg Tablet ONE (01:40)
[2017-08-10 01:45] LABS: Base Excess-Venous -2.1 mmol/L (0 (+/- 2.5)); Bicarbonate (HCO3v) 22.5 mmol/L (1.0-85.0); CO2 Tension (PvCO2) 37.5 mmHg (41.0-51.0); Calcium, Ionized 1.14 mmol/L (1.12-1.32); Hemoglobin - Calc 16.1 g/dL (12.0-18.0); O2 Tension (PvO2) 46.4 mmHg (35.0-45.0); Potassium 4.2 mmol/L (3.4-4.7); T. Carbon Dioxide 23.6 mmol/L (1.0-85.0); pH (Venous) 7.386 (7.35-7.45); vO2 Saturation-calc 81.7 % (94-98)
[2017-08-10 01:50] LABS: Hemoglobin A1c 9.4 % (4.0-6.0)
[2017-08-10 01:58] LABS: ALT (SGPT) 49 U/L (8-55); AST (SGOT) 40 U/L (5-34); Albumin 4.2 g/dL (3.4-4.8); Alkaline Phosphatase 159 U/L (40-150); Anion Gap 18 mmol/L (10-20); BUN (Urea Nitrogen) 14 mg/dL (8.4-25.7); Bilirubin, Total 0.3 mg/dL (0.2-1.2); Calc. Creatinine Clearance 0 mL/min (70-130); Calcium 9.6 mg/dL (7.8-10.44); Carbon Dioxide 19 mmol/L (23-31); Chloride 103 mmol/L (98-107); Estimated GFR-MDRD 65; Glucose 257 mg/dL (80-115); Potassium 4.6 mmol/L (3.5-5.1); Protein, Total 8.2 g/dL (5.8-8.1); Sodium 135 mmol/L (136-145)
[2017-08-10 02:09] LABS: Bilirubin Negative (Negative); Blood, Urine Negative (Negative); Clarity CLEAR (Clear); Glucose, Urine (Dipstick) >=1000 mg/dL (Negative); Leukocyte Negative (Negative); Nitrite Negative (Negative); Protein, Urine (Dipstick) Negative (Neg-Trace); Specific Gravity, Urine 1.021 (1.002-1.036); Urobilinogen 0.2 mg/dL (0.2-1.0); pH, Urine 5.5 (5.0-9.0)
[2017-08-10] MEDS ORDERED: Nitroglycerin 0.4 MG TAB (25 Tab Bottle) SL PRN (04:36)
[2017-08-10] MEDS ORDERED: Dextrose 5% in Water 1,000 ML IV PRN ×2 (04:48→15:34)
[2017-08-10] MEDS ORDERED: Dextrose 50% Abboject 50 ML SYRINGE SLOW IVP PRN ×2 (04:48→15:34)
[2017-08-10] MEDS ORDERED: HumaLOG 300 UNITS/3 ML VIAL SC PRN (04:48)
[2017-08-10 06:56] LABS: Troponin I 1.719 ng/mL (< 0.028)
--- NOTE | 2017-08-10 07:04 | HP ---
PRIMARY CARE PHYSICIAN: Dr. Paige Tucker CODE STATUS: DNR. TIME OF EVALUATION: 1:00 a.m. CHIEF COMPLAINT: Chest pain. HISTORY OF PRESENT ILLNESS: This is a 67-year-old male with past medical history of hypertension, hyperlipidemia, arthritis, came to the hospital after having chest pain that has been present for about 2 days, on and off, has been severe occasionally, no clear triggers, no clear alleviating factors. no specific radiation, On presentation, troponin was 0.8, that is going up to 1. We will admit for non-STEMI. Cardiology to see the patient in the morning. REVIEW OF SYSTEMS: Constitutional: No fever, no chills. Generalized weakness. Respiratory: No cough, no sputum production or shortness of breath. Cardiovascular: The patient had chest pain, no palpitations, no shortness of breath. Gastrointestinal: No nausea, no vomiting, no diarrhea, no abdominal pain. Central Nervous System: No dizziness, headache or feeling lightheaded. Genitourinary: No burning with urination. Extremities: No leg swelling. All other systems reviewed were negative except for findings mentioned above. PAST MEDICAL HISTORY: The patient has a history of erectile dysfunction, hyperlipidemia, GERD, arthritis, also diabetes. PAST SURGICAL HISTORY: Colonoscopy, left hip replaced, right ankle. PSYCHIATRIC HISTORY: No previous psych history. SOCIAL HISTORY: The patient drinks every day, less than 5 drinks per day. No drugs. No smoking history. FAMILY HISTORY: Reviewed. The patient has a father with history of [place]. ALLERGIES: No known drug allergies. REPORTED MEDICATIONS: Lipitor 20 mg daily, Lyrica 100 mg once a day, simvastatin 20 mg orally once a day, Elavil 10 mg orally once a day, Valium 5 mg orally once a day, diclofenac 25 mg orally unknown dose, metformin 500 mg orally once a day. PHYSICAL EXAMINATION: VITAL SIGNS: On presentation, blood pressure 114/79 with heart rate 108, respiratory rate was 20, temperature 99.1, pain was 2/10, saturation 93 on room air. GENERAL APPEARANCE: The patient is alert, oriented, no acute distress. HEENT: Eyes: Normal conjunctivae. Moist oral mucosa. NECK: No JVD. RESPIRATORY: Bilateral air entry. No rales, no wheezing. Symmetric expansion. CARDIOVASCULAR: Normal rate, regular rhythm. No murmurs, no gallop. No edema. ABDOMEN: Soft, normal bowel sounds. MUSCULOSKELETAL: Baseline range of motion and strength. No tenderness. SKIN: Warm and intact. No pallor, no rash, no redness. NEUROLOGIC: Baseline sensory. No evidence of any new focal weakness. Baseline speech. Cranial nerves seem to be intact. PSYCHIATRIC: The patient is in good mood. No anxiety, oriented, optimal judgment. LABORATORY DATA: Reviewed. The patient has D-dimer 0.4 that is negative. BBG 7.38. Sodium 135, potassium 4.6, chloride 103, carbon dioxide 19, anion gap 18 , BUN 14, creatinine 1.1, GFR 65, glucose 257. Hemoglobin A1c 9.4, calcium 9.6 , total bilirubin 0.3, AST 40, ALT 49, alkaline phosphatase 159. Troponin was initially 0.8 came back at the level of 1.2 to 1.5. Serum total protein 8.2. Lipase was 54. UA was done and was negative. The patient also received a chest x-ray that was reported as no acute process present. The EKG was discussed with the performing physician in ER and it shows accelerated junctional rhythm with occasional PVCs with QTC 651 and this patient has had some ST changes and the case had been discussed with Dr. Guerrero, who was given recommendations to give the patient aspirin and Lovenox as per ER report. The patient to be seen in the morning, most likely to receive cardiac cath. ASSESSMENT AND PLAN: The patient will be admitted to the hospital for the following medical condition: 1. Rvg-EV-[id number] elevation myocardial infarction type 1, troponin 1.0 and the last one 1.5, anticoagulation, aspirin. Dr. Guerrero has been consulted. who will see the patient, likely to go for cardiac cath in the morning, monitor on tele. Symptomatic treatment. 2. Uncontrolled diabetes, sliding scale will be started. 2. Hyperlipidemia, low cholesterol diet , reconcile home medications. 3. History of gastroesophageal reflux disease, reconciled home medication. 4. Deep venous thrombosis prophylaxis. MTDD
[2017-08-10] MEDS ORDERED: Lidocaine 1% (PF) 30 ML VIAL ONE (08:32)
[2017-08-10] MEDS ORDERED: Communication Order-Pharmacy FS SCH ×2 (08:45→10:09)
[2017-08-10] MEDS ORDERED: Sodium Chloride 0.9% 1,000 ML IV SCH (08:45)
[2017-08-10] MEDS ORDERED: Diazepam 10 MG/2 ML SYRINGE IVP SCH (08:45)
[2017-08-10] MEDS ORDERED: Metoprolol Tartrate 25 MG TAB PO SCH (09:00)
[2017-08-10] MEDS ORDERED: Lisinopril 2.5 MG TAB PO SCH (09:00)
[2017-08-10] MEDS ORDERED: Enoxaparin Sodium 80 MG/0.8 ML SYRINGE SC SCH ×2 (09:00→21:00)
[2017-08-10] MEDS ORDERED: Aspirin 325 MG TAB PO SCH (09:00)
--- NOTE | 2017-08-10 09:14 | CON ---
DATE OF CONSULTATION: 08/10/2017 REASON FOR CONSULTATION: Acute coronary syndrome. HISTORY OF PRESENT ILLNESS: Mr. Rosas is a very pleasant 67-year-old gentleman who recently was seen and evaluated in [place], [place]. He was seen by Dr. Rudy Man. He came in with acute onset ch est pain. His EKG did show some ST segment elevation. His repeat EKG appeared to improve. His symp toms that also resolved. His initial troponin was 0.8. He was transferred to [facility] for further disposition. He states he had another episode on Friday prior to the episode on Friday. Then, upon my arrival t his morning, he had another episode that was relieved completely with sublingual nitroglycerin. PAST MEDICAL HISTORY: Erectile dysfunction, hyperlipidemia, acid reflux, arthritis. PAST SURGICAL HISTORY: Colonoscopy, hip surgery, ankle surgery. SOCIAL HISTORY: Positive alcohol use, no drug use. ALLERGIES: None. HOME MEDICATIONS: Include Lipitor, Lyrica, simvastatin, Elavil, Valium, metformin, diclofenac. REVIEW OF SYSTEMS: Ten-point review of systems is reviewed and as above, otherwise negative. PHYSICAL EXAMINATION: GENERAL: Patient is a pleasant male who is in no acute distress. The patient appears his stated age . VITAL SIGNS: Blood pressure 110/60, pulse 90, temperature 96.4. NEUROLOGIC: The patient is alert and oriented times 3 with no focal neurologic deficits. HEENT: Sclerae without icterus. Mouth has moist mucous membranes with normal pallor. NECK: No JVD. Carotid upstroke brisk. No bruits bilaterally. LUNGS: Clear to auscultation with unlabored respirations. BACK: No scoliosis or kyphosis. CARDIAC: Regular rate and rhythm with normal S1 and S2. No S3 or S4 noted. No significant rubs, mu rmurs, thrills, or gallops noted throughout the precordium. PMI is not displaced. There is no damien ternal heave. ABDOMEN: Soft, nontender, nondistended. No peritoneal signs present. No hepatosplenomegaly. No ab normal striae. EXTREMITIES: 2+ femoral and 2+ dorsalis pedis pulses. No cyanosis, clubbing, or edema. SKIN: No gross abnormalities. PERTINENT LABORATORY DATA: Peak troponin 1.7, which is up from 1.5. IMAGING: EKG: Normal sinus rhythm with ST-T wave changes suggesting ischemia. IMPRESSION: Unstable angina. RECOMMENDATIONS: Mr. Harris did well overnight. No chest pain noted. He did have recurrent episode this morning prior to Lovenox being given. Given recurrent episode this morning, we would recommend coronary angiography plus PCI. I discussed the procedure in full detail with the patient. The risk s of the procedure were also discussed. The risks of the procedure include but are not limited to th e following: , stroke, HI, need for emergency surgery, loss of limb, bleeding, and infection, a s well as a reaction to the dye causing kidney failure and needing long-term dialysis. I also discus sed the risks of PCI to include all of the above including coronary dissection and perforation in add ition to acute stent thrombosis and restenosis. All questions about the procedure were answered. Gi chey the above, the patient agreed to proceed with coronary angiography and possible PCI. I have also discussed drug-coated versus non-coated stent placement. There are no contraindications, we will pr oceed if needed. Further recommendations pending the above.
[2017-08-10] MEDS ORDERED: Fentanyl 100 MCG/2 ML VIAL ONE (09:19)
[2017-08-10] MEDS ORDERED: Midazolam HCl 2 mg/2 ml Vial ONE (09:19)
[2017-08-10] MEDS ORDERED: Nitroglycerin 50 MG/250 ML BOT 250 ML ONE ×2 (09:36→10:38)
[2017-08-10] MEDS ORDERED: Heparin 25,000 units/D5W 500 ML ONE (09:36)
[2017-08-10 10:27] LABS: Hemoglobin 14.3 g/dL (14.0-18.0); Platelet Count 166 thou/uL (130-400)
[2017-08-10 10:36] LABS: INR-International Normal Ratio 1.1; PTT 37.1 SEC (22.9-36.1)
[2017-08-10] MEDS ORDERED: Phenylephrine HCL 10 MG/ML VIAL ONE (10:38)
[2017-08-10] MEDS ORDERED: Norepinephrine 8 MG/0.9% NS 250 ML ONE (10:38)
[2017-08-10] MEDS ORDERED: Vecuronium 10 MG VIAL ONE ×2 (10:38→16:25)
[2017-08-10] MEDS ORDERED: Midazolam HCl 5 mg/5 ml Vial ONE (10:38)
[2017-08-10] MEDS ORDERED: Fentanyl 250 MCG/5 ML VIAL ONE (10:38)
[2017-08-10] MEDS ORDERED: Albumin 5% 0 ML ONE (10:51)
[2017-08-10] MEDS ORDERED: Albumin 5% 500 ML ONE (11:03)
[2017-08-10] MEDS ORDERED: Iopamidol 370 76% 100 ML VIAL ONE (13:31)
[2017-08-10] MEDS ORDERED: Mag-Al 1200 mg/1200 mg/30 ML UDCUP PO PRN (15:19)
[2017-08-10] MEDS ORDERED: Bisacodyl 10 MG SUPP PR PRN (15:19)
[2017-08-10] MEDS ORDERED: Potassium Chloride 20 MEQ/100 ML PREMIX BAG IVPB PRN (15:19)
[2017-08-10] MEDS ORDERED: Hetastarch 6% 500 ML 500 ML IVPB PRN (15:19)
[2017-08-10] MEDS ORDERED: Bisacodyl 5 MG TAB PO PRN (15:19)
[2017-08-10] MEDS ORDERED: niCARdipine HCl 25 MG in Sodium Chloride 0.9% 250 ML 240 ML IVPB PRN (15:19)
[2017-08-10] MEDS ORDERED: hydrALAZINE 20 MG/ML VIAL SLOW IVP PRN (15:19)
[2017-08-10] MEDS ORDERED: Guaifenesin DM 100-10/5 ML UDCUP PO PRN (15:19)
[2017-08-10] MEDS ORDERED: Acetaminophen 325 MG TAB PO PRN (15:19)
[2017-08-10] MEDS ORDERED: Post-Op Insulin Drip Protocol IVPB ONE (15:19)
[2017-08-10] MEDS ORDERED: Nitroglycerin 50 MG/250 ML BOT 250 ML IVPB PRN (15:19)
[2017-08-10] MEDS ORDERED: Promethazine HCl 25 MG/ML VIAL IM PRN (15:19)
--- NOTE | 2017-08-10 15:29 | CON ---
DATE OF CONSULTATION: 08/10/2017 REQUESTING PHYSICIAN: Dr. Guerrero. PRIMARY CARE PHYSICIAN: Dr. Paige Tucker. CHIEF COMPLAINT: Chest pain. HISTORY OF PRESENT ILLNESS: The patient is a 67-year-old man, very recently diagnosed with diabetes. Apparently, he has been having problems for some time that his family has been urging him to seek m edical attention for, but overtly began having chest pain about 2-3 days ago. [facility] and then yesterday had a very severe episode that resolved. He had some minimal ST elevat ion that improved with resolution of his pain, but then again this morning had another episode of kelechi n, although not nearly as severe as yesterdays. His troponin initially was 0.8, but then it risen sl ightly and as of this morning had reached 1.719. PAST MEDICAL HISTORY: Significant for hyperlipidemia, GE reflux, arthritis, erectile dysfunction and recently diagnosed type 2 diabetes mellitus. HOME MEDICATIONS: Listed as metformin 1000 mg q.a.m., simvastatin 80 mg at bedtime, Lyrica 300 mg at bedtime, Prilosec 40 mg at bedtime, Lopressor 25 mg b.i.d., diclofenac 25 mg p.r.n., Valium 5 mg at bedtime, and Elavil 50 mg at bedtime. He was given 600 mg of Plavix yesterday evening prior to his t ransfer here. ALLERGIES: He denies any medical allergies. SOCIAL HISTORY: He is a nonsmoker. FAMILY HISTORY: Significant for his father having had an myocardial infarction. REVIEW OF SYSTEMS: Negative for any transient eye, speech, facial or extremity symptoms suggestive o f transient ischemic attacks. PHYSICAL EXAMINATION: GENERAL: He is in no distress. VITAL SIGNS: Heart rates have been in the 90s, blood pressure 110-130/70-75, room air O2 sats are 95 %, weight is 194 pounds. HEENT: He has no xanthelasma. NECK: No JVD, no carotid bruits. LUNGS: His chest is clear to auscultation. CARDIOVASCULAR: He has a regular rate and rhythm. ABDOMEN: Soft and nontender. He has well healed surgical scar in the left lower quadrant. EXTREMITIES: He has femoral sheath in place on the right side, palpable left femoral pulse, he has p alpable radial and dorsalis pedis pulses bilaterally. He has venous stasis pigmentation changes at t he right ankle. His chest x-ray shows perhaps mild edema. Laboratory exam shows a hemoglobin of 16.2, platelet count 216,000. His electrolytes were normal, his glucose was 257. Troponin peaked to 1.719. Coagulation studies from previous encounter this month were normal. Cardiac catheterization demonstrates what a ppears to be left dominant system with a filling defect in the distal left main affecting the LAD and circumflex systems, it is most suggestive of clot. There is no obvious calcification seen there. A ppears to have a filling defect in the circumflex proper as well as significant disease in the mid LA D just beyond the first septal flavor maker in the ostium of ramus type vessel. The ostium of an OM1 h as some modest disease in the LAD just beyond a modest size diagonal, LVEF is around 60%. ASSESSMENT AND PLAN: Left main coronary disease with plaque as well as what probably represents thro mbus in the left main affecting the LAD and circumflex systems in a patient with post-infarction alexander na, we will take to the operating room for emergent revascularization.
[2017-08-10] MEDS ORDERED: Heparin 30,000 units/30 ml VIAL ONE (16:25)
[2017-08-10] MEDS ORDERED: Potassium Chlo 10 mEq/5 ml Syr ONE (16:25)
[2017-08-10] MEDS ORDERED: Cardioplegic Soln 1,000 ML BAG ONE (16:25)
[2017-08-10] MEDS ORDERED: Calcium Chloride 1 GM/10 ML Abboject SYRINGE ONE (16:25)
[2017-08-10] MEDS ORDERED: Lidocaine 2% PF 100 mg/5 ml Syringe ONE (16:25)
[2017-08-10] MEDS ORDERED: Heparin 5,000 UNITS/ML VIAL ONE (16:25)
[2017-08-10] MEDS ORDERED: Hydrocortisone Sod Succ/PF 100 mg/2 ml Vial ONE (16:25)
[2017-08-10] MEDS ORDERED: PROPOFOL 200 MG/20 ML VIAL ONE (16:25)
[2017-08-10] MEDS ORDERED: Sodium Bicarb 50 MEQ/50 ML VIAL ONE (16:25)
[2017-08-10] MEDS ORDERED: Mannitol 12.5 GM/50 ML ONE (16:25)
[2017-08-10] MEDS ORDERED: Protamine Sulfate 250 MG/25 ML VIAL ONE (16:25)
[2017-08-10] MEDS ORDERED: PHENYLEPHRINE-NS 100 MCG/ML 10 ML SYRINGE ONE (16:25)
[2017-08-10] MEDS ORDERED: Papaverine 60 MG/2 ML VIAL ONE (16:25)
[2017-08-10] MEDS ORDERED: Magnesium 5 GM/10 ML VIAL ONE (16:25)
--- NOTE | 2017-08-10 16:30 | RAD ---
SINGLE VIEW CHEST: Date: 08/10/17 COMPARISON: 08/09/17. HISTORY: Status post open heart surgery. FINDINGS: Single view of the chest shows a normal sized cardiomediastinal silhouette. The patient is status pos t sternotomy. There is an endotracheal tube with its tip at the lower border of the clavicles. A cent ral venous catheter is seen with its tip at the superior vena cava. Left-sided chest tubes are seen. No pneumothorax is present. IMPRESSION: Appropriate position of lines and tubes status post sternotomy. POS: [facility]
[2017-08-10] MEDS: Sodium Chloride 0.9% 1,000 ML IV SCH (16:31)
[2017-08-10] MEDS: Norepinephrine 8 MG/0.9% NS 250 ML IVPB PRN (16:33)
[2017-08-10 16:38] LABS: Hemoglobin 11.7 g/dL (14.0-18.0); Mean Corpuscular HGB CONC 35.7 g/dL (32.0-36.0); Mean Corpuscular Hemoglobin 33.5 pg (27.0-31.0); Mean Corpuscular Volume 93.9 fL (78.0-98.0); Mean Platelet Volume 7.1 fL (7.4-10.4); Platelet Count 218 thou/uL (130-400); Red Blood Cell (RBC) Count 3.49 mill/uL (4.70-6.10)
[2017-08-10 16:45] LABS: Actual Bicarbonate (HCO3a) 20.3 mEq/L (22-28); Base Excess (BEa) -4.8 mEq/L (-2.0 to +3.0); CO2 Tension 37.4 mmHg (35.0-45.0); O2 Tension (PaO2) 100.3 mmHg (> 80.0); pH, Arterial 7.35 (7.35-7.45)
[2017-08-10 16:46] LABS: Hemoglobin (Hb) 12.2 g/dL (14.0-18.0)
[2017-08-10 16:47] LABS: INR-International Normal Ratio 1.3; PTT 30.9 SEC (22.9-36.1); Prothrombin Time 16.3 SEC (12.0-14.7); Puncture Site ALINE
[2017-08-10 16:56] LABS: Band 8 % (5-11); Lymphocytes 10 % (21-51); MDiff Complete? YES; Monocytes 5 % (0-10); Neutrophil 77 % (42-75); PLT Morphology Comment Appears Adequate
[2017-08-10 17:04] LABS: Anion Gap 11 mmol/L (10-20); BUN (Urea Nitrogen) 11 mg/dL (8.4-25.7); Calc. Creatinine Clearance 114 mL/min (70-130); Calcium 7.3 mg/dL (7.8-10.44); Carbon Dioxide 21 mmol/L (23-31); Chloride 111 mmol/L (98-107); Estimated GFR-MDRD Greater than 90; Glucose 190 mg/dL (80-115); Potassium 4.5 mmol/L (3.5-5.1); Sodium 138 mmol/L (136-145)
[2017-08-10] MEDS: Fentanyl 100 MCG/2 ML VIAL SLOW IVP PRN ×3 (18:22→22:03)
[2017-08-10 19:28] LABS: Actual Bicarbonate (HCO3a) 17.9 mEq/L (22-28); Base Excess (BEa) -6.3 mEq/L (-2.0 to +3.0); CO2 Tension 30.7 mmHg (35.0-45.0); Hemoglobin (Hb) 11.9 g/dL (14.0-18.0); O2 Tension (PaO2) 102.9 mmHg (> 80.0); pH, Arterial 7.38 (7.35-7.45)
[2017-08-10 19:29] LABS: ALV-art Gradient 143.925 (0-20); Puncture Site ALINE
[2017-08-10] MEDS: Diazepam 5 MG TAB PO PRN (19:31)
[2017-08-10] MEDS ORDERED: Acetaminophen 1,000 MG in Premix Bag 1 BAG IVPB SCH (20:45)
[2017-08-10] MEDS ORDERED: Ketorolac Tromethamine 30 MG/ML VIAL IVP SCH (20:45)
[2017-08-10] MEDS ORDERED: Metoprolol Tartrate 5 MG/5 ML VIAL IVP SCH (20:45)
[2017-08-10] MEDS: Ondansetron HCl/PF 4 MG/2 ML Vial IVP PRN (20:47)
[2017-08-10] MEDS: Atorvastatin Calcium 40 MG TAB PO SCH (21:29)
[2017-08-10] MEDS: Pregabalin 75 MG CAP PO SCH (21:29)
[2017-08-10] MEDS: Amitriptyline HCl 25 MG TAB PO SCH (21:29)
[2017-08-10 21:30] LABS: Hemoglobin 9.5 g/dL (14.0-18.0)
[2017-08-10 21:50] LABS: Potassium 4.3 mmol/L (3.5-5.1)
[2017-08-10] MEDS ORDERED: Digoxin 0.5 MG/2 ML AMP SLOW IVP SCH (23:15)
--- NOTE | 2017-08-11 00:37 | OP ---
DATE OF PROCEDURE: 08/10/2017 PROCEDURE PERFORMED: Emergent coronary artery bypass grafting x5 with left internal mammary artery to the distal LAD, separate reverse greater saphenous vein graft from the aorta to the second diagonal and to the ramus intermedius, sequential reverse greater saphenous vein graft from the aorta to the obtuse marginal to the circumflex PDA. PREOPERATIVE DIAGNOSIS: Left main coronary artery disease with post-infarction angina. POSTOPERATIVE DIAGNOSIS: Left main coronary artery disease with post- infarction angina. SURGEON: Berny Garzon M.D. LADLE OPERATOR: Dr. Awan. ANESTHESIA: General endotracheal anesthesia. INDICATIONS: The patient is a 67-year-old newly diagnosed diabetic man had a stuttering pattern of chest pain over the last 2-3 days and then presented with a severe episode that began to resolve. His ST elevation resolved as his chest pain did ruled in for myocardial infarction by enzymes and had recurrence of his angina prompting emergent catheterization that demonstrated a left dominant system with severe disease involving the left main, the circumflex and the LAD and had filling defects suggestive of thrombus. He is now taken to the operating room for surgical revascularization. FINDINGS: Pump time 97 minutes, crossclamp time 50 minutes, good quality DANIELA and saphenous vein. The LAD was 1.5-2 mm diffusely diseased vessel, prompting distal grafting. The diagonal was about 1.5-2 mm and had diffuse proximal disease. The ramus was about 1.5-2 mm in fairly good quality. The obtuse marginal was 2-2.5 mm and good quality. The circumflex PDA was good quality 2 mm vessel. The pericardium was closed. NARRATIVE REPORT: After informed consent was obtained, the patient was taken to the operating room and placed in supine position on the operating table. After induction of general anesthesia, the patient's left upper chest was prepped and draped in sterile fashion. A triple-lumen central line kit was used to place a left subclavian central line by the Seldinger technique. All three ports easily aspirated and flushed. The patient's torso, groins, and lower extremities were prepped and draped in sterile fashion. Saphenous vein was harvested endoscopically from the left lower extremity from the groin to mid calf and prepared for use as a graft. The harvest incision was closed in layers, the subcutaneous and subcuticular Vicryl. The median sternotomy was performed. The left pleural space was entered and the left DANIELA was mobilized with pedicle from the level of xiphoid, the level of subclavian vein, side branches were controlled with small Hemoclips. The patient was heparinized and the mammary was ligated and divided distally. There was good flow through the mammary which was instilled intraluminally with papaverine solution. The mammary bed was inspected for hemostasis. The DANIELA retractor was replaced with the Alegria retractor. The pericardium was opened and marsupialized. The aorta was palpated and was soft. A double concentric pursestring of 2-0 Ethibond was placed in the ascending aorta just beyond the pericardial reflection and a single pursestring was placed in the right atrial appendage. The aortic and venous cannulae were inserted and secured by the pursestrings. Cardiopulmonary bypass was instituted and the patient was systemically cooled. The heart was examined. The vessels to be bypassed were identified. A longitudinal slit was made in the pericardium anterior to the left phrenic nerve through which the mammary pedicle could be passed and the plane between the aorta and the pulmonary artery was developed and aortic cross clamp was applied and cardioplegia was administered through the aortic root needle. When arrest been achieved, attention was turned to the distal circumflex system. The PDA was opened. There were emerged from the AV groove and saphenous vein was anastomosed to it in end-to-side with running Prolene suture and the anastomosis tested by flushing cold cardioplegic down the graft. The obtuse marginal was then opened and a [id number] anastomosis from the vein graft to the OM was constructed, orienting the anastomosis perpendicular to the axis of the coronary. The ramus intermedius and second diagonal were then each opened and grafted in a similar fashion. the LAD was then opened distally where it became soft. The mammary was anastomosed there with running 7-0 Prolene and the mammary pedicle tacked to the epicardium. The aortic crossclamp was replaced with a partial occluding clamp, aortotomy was made in the ascending aorta with a scalpel and punch, incorporating the root needle site for one of the aortotomies. The diagonal graft was anastomosed to the most proximal aortotomy. The ramus and the sequential OM and PDA grafts were anastomosed to the middle and distal aortotomies respectively. Partial occlusion clamp was removed. The vein grafts were deaired and the bulldogs were removed from them. The anastomoses were inspected for hemostasis. Proximal anastomoses were marked with small Hemoclips. The posterior pericardial and left pleural drain were brought out through separate incisions and secured with suture. Right atrial and right ventricular temporary epicardial pacing wires were placed. The patient was then easily from cardiopulmonary bypass. The aortic and venous cannula removed and their pursestring secured. Protamine was administered. Platelets were also transfused to effect hemostasis as they remained somewhat coagulopathic and had been loaded with 600 mg of Plavix a day previous. When hemostasis was adequate, an anterior mediastinal drain was placed. The pericardium was closed with running Vicryl. The sternum was reapproximated with #7 stainless steel wires. The fascia was closed over the wires with heavy Vicryl and subcutaneous tissue was irrigated and reapproximated and the skin was closed with Vicryl subcuticular stitch. The wounds were dressed and the patient was taken to the intensive care unit in stable condition. TINO
[2017-08-11] MEDS ORDERED: Digoxin 0.5 MG/2 ML AMP SLOW IVP SCH (01:15)
[2017-08-11] MEDS: Fentanyl 100 MCG/2 ML VIAL SLOW IVP PRN ×3 (02:00→08:03)
[2017-08-11] MEDS: HYDROcodone/Acetaminophen 5/325 mg Tablet PO PRN ×3 (02:03→21:29)
[2017-08-11] MEDS: Sodium Chloride 0.9% 1,000 ML IV SCH ×2 (04:30→17:36)
[2017-08-11 05:03] LABS: #Lymphocytes 1.4 thou/uL (1.20-3.40); #Monocytes 1.1 thou/uL (0.11-0.59); #Neutrophils 8.1 thou/uL (1.40-6.50); %Basophils 0.2 % (0.0-1.0); %Eosinophils 0.2 % (0.0-10.0); %Lymphocytes 13.3 % (21.0-51.0); %Monocytes 10.4 % (0.0-10.0); %Neutrophils 75.9 % (42.0-75.0); Hemoglobin 9.1 g/dL (14.0-18.0); Mean Corpuscular HGB CONC 34.2 g/dL (32.0-36.0); Mean Corpuscular Hemoglobin 32.4 pg (27.0-31.0); Mean Corpuscular Volume 94.7 fL (78.0-98.0); Mean Platelet Volume 7.7 fL (7.4-10.4); Platelet Count 179 thou/uL (130-400); RBC Distribution Width 11.9 % (11.5-14.5); Red Blood Cell (RBC) Count 2.81 mill/uL (4.70-6.10); White Blood Cell (WBC) Count 10.6 thou/uL (4.8-10.8)
[2017-08-11 05:22] LABS: Anion Gap 12 mmol/L (10-20); BUN (Urea Nitrogen) 13 mg/dL (8.4-25.7); Calc. Creatinine Clearance 103 mL/min (70-130); Calcium 7.7 mg/dL (7.8-10.44); Carbon Dioxide 20 mmol/L (23-31); Chloride 112 mmol/L (98-107); Estimated GFR-MDRD 89; Glucose 137 mg/dL (80-115); Potassium 4.7 mmol/L (3.5-5.1); Sodium 139 mmol/L (136-145)
[2017-08-11] MEDS: Furosemide 40 MG/4 ML VIAL SLOW IVP SCH ×3 (07:42→14:41)
[2017-08-11] MEDS: Metoclopramide HCl 10 MG/2 ML VIAL IVP SCH ×3 (07:45→18:22)
--- NOTE | 2017-08-11 08:30 | RAD ---
PORTABLE UPRIGHT FRONTAL CHEST RADIOGRAPH: DATE: 08/11/17. COMPARISON: 08/10/17. HISTORY: Open heart surgery. FINDINGS: The study is markedly limited secondary to shallow inspiration, body habitus, and rotation to the rig ht. Midline sternotomy wires are present. Stable left-sided vascular catheter. Stable drainage cat heter overlies the left lung base. The mediastinum appears widened when compared to the prior examin ation. This could be on the basis of true widening but also could be artifactual given multiple limi tations as described above. The endotracheal tube has been removed since the prior examination. Please consider PA and lateral imaging of the chest for better assessment of the mediastinum. IMPRESSION: Limited examination demonstrating widening of the mediastinum. Further imaging advised. CODE T POS: [facility]
[2017-08-11] MEDS: Aspirin 325 MG TAB PO SCH (08:38)
[2017-08-11] MEDS: Famotidine 20 MG TAB PO SCH ×2 (08:59→20:39)
[2017-08-11] MEDS ORDERED: Metoprolol Tartrate 25 MG TAB PO SCH (09:00)
[2017-08-11] MEDS ORDERED: Famotidine/PF 20 mg/2ml Vial SLOW IVP SCH (09:00)
--- NOTE | 2017-08-11 09:24 | PDOC.CTH ---
Cardiology Progress Note - Subjective Doing well. complaining of chest wall pain. Still on small amount of levophed. Arterial line still in place. - Objective Vital Signs Temp Pulse Resp Pulse Ox 08/11/17 08:00 98.8 F 08/11/17 07:21 98.8 F 123 H 22 H 94 L 08/11/17 04:00 98.5 F 08/11/17 03:42 95 08/11/17 01:03 122 H 08/11/17 00:00 98.0 F 97 08/10/17 23:23 127 H Weight 196 lb 6.91 oz 08/10/17 08/11/17 08/12/17 06:59 06:59 06:59 Intake Total 2301 0 Output Total 1125 400 Balance 1176 -400 - Physical Examination General/Neuro: alert & oriented x3, NAD Neck: no JVD present Lungs: CTA Heart: RRR Abdomen: no HSM, NT/ND, soft Extremities: + femoral B - Labs Result Diagrams: 08/11/17 03:30 08/11/17 03:30 Troponin/CKMB CK-MB (CK-2) 10.1 ng/mL (0-6.6) H* 08/09/17 23:11 Troponin I 1.719 ng/mL (< 0.028) H* 08/10/17 05:15 - Assessment/Plan 1. NQWMI 2. Severe CAD 3. S/p CABG 4. DM current stable Continue meds to support BP. hold BB, nicardipine gtt given he is on levophed; wean off levophed as BP tolerates on statin
--- NOTE | 2017-08-11 09:40 | CON ---
DATE OF CONSULTATION: 08/11/2017 This is a 67-year-old gentleman status post coronary artery bypass graft x5 emergency yeste rday. He is extubated. He is in the ICU, reason for the consultation. His pulse is 132. Blood pressure on the A-line is 122/87, respirations about 30. Sats are 98% on rayo pplemental oxygen. History says that he presented to [place] with cardiac chest pain of 2 days. In fact, he was just discharged from the hospital here 10 days ago. 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 He lives in [facility]. His is . He was given Lovenox, Plavix, and aspirin in [place] and transferred over here. In fact, I am unable to get much history except he does not smoke. He does drink 2 beers a day. PAST MEDICAL HISTORY: Pertinent for arthritis, hyperlipidemia, high cholesterol, hypertension, diabe jia, depression. MEDICATIONS FROM HOME: Includes metformin 1000 a day, simvastatin 80, Lyrica 300, omeprazole 40, Lop ressor 25, diazepam 5 mg a day, amitriptyline 50 mg a day. ALLERGIES: None. PAST SURGICAL HISTORY: Otherwise have included a recent CABG, history of hernia repair, ankle fractu re, carpal tunnel, trigger finger, left hip surgery. REVIEW OF SYSTEMS: Otherwise unobtainable. PHYSICAL EXAMINATION: GENERAL: Somewhat encephalopathic, but from time to time answers questions appropriately. VITAL SIGNS: His pulse is 131, blood pressure 153/56, sats are 92%, respirations 18. He is afebrile . CHEST: Decreased breath sounds, no wheezing. CARDIAC: Normal S1, S2, no gallops. ABDOMEN: Soft, no masses. EXTREMITIES: No edema. NEUROLOGIC: He is awake, responsive, moves all 4 extremities. LABORATORY AND X-RAY FINDINGS: Chest x-ray shows no acute infiltrates. Cardiomegaly. White count 10,000, H&H 9 and 26, platelet count 179, pO2 is 102, pCO2 38, last night. He has been off the vent. Electrolytes are normal. Glucose 187. IMPRESSION: 1. Status post coronary artery bypass graft x5. 2. Encephalopathy, dementia. 3. Diabetes. 4. Hypertension. 5. Arthritis. PLAN: We will continue to see the patient while he is in the ICU. Aggressive PT, supportive care. Deep venous thrombosis prophylaxis. Proton pump inhibitors. I will follow. ICU consultation note, 45 minutes.
[2017-08-11] MEDS: Insulin Regular 300 UNITS/3 ML VIAL SC PRN ×3 (10:08→21:35)
[2017-08-11 15:14] LABS: Actual Bicarbonate (HCO3a) 17.8 mEq/L (22-28); Base Excess (BEa) -6.4 mEq/L (-2.0 to +3.0); CO2 Tension 30.6 mmHg (35.0-45.0); pH, Arterial 7.38 (7.35-7.45)
[2017-08-11 15:15] LABS: Hemoglobin (Hb) 9.2 g/dL (14.0-18.0)
[2017-08-11 15:16] LABS: Puncture Site LRA
[2017-08-11 15:26] LABS: #Lymphocytes 1.7 thou/uL (1.20-3.40); #Monocytes 1.2 thou/uL (0.11-0.59); #Neutrophils 7.6 thou/uL (1.40-6.50); %Basophils 0.4 % (0.0-1.0); %Eosinophils 0.2 % (0.0-10.0); %Lymphocytes 16.2 % (21.0-51.0); %Neutrophils 72.2 % (42.0-75.0); Hemoglobin 8.8 g/dL (14.0-18.0); Mean Corpuscular HGB CONC 34.5 g/dL (32.0-36.0); Mean Corpuscular Hemoglobin 33.4 pg (27.0-31.0); Mean Corpuscular Volume 96.7 fL (78.0-98.0); Platelet Count 161 thou/uL (130-400); RBC Distribution Width 12.1 % (11.5-14.5); Red Blood Cell (RBC) Count 2.62 mill/uL (4.70-6.10); White Blood Cell (WBC) Count 10.6 thou/uL (4.8-10.8)
[2017-08-11] MEDS: Norepinephrine 8 MG/0.9% NS 250 ML IVPB PRN (15:57)
[2017-08-11 16:01] LABS: Anion Gap 12 mmol/L (10-20); BUN (Urea Nitrogen) 16 mg/dL (8.4-25.7); Calc. Creatinine Clearance 57 mL/min (70-130); Calcium 7.1 mg/dL (7.8-10.44); Carbon Dioxide 20 mmol/L (23-31); Chloride 108 mmol/L (98-107); Estimated GFR-MDRD 44; Glucose 259 mg/dL (80-115); Sodium 134 mmol/L (136-145)
[2017-08-11] MEDS: Hydrocortisone Sod Succ/PF 100 mg/2 ml Vial IVP SCH (17:37)
[2017-08-11] MEDS: Pregabalin 75 MG CAP PO SCH (20:38)
[2017-08-11] MEDS: Amitriptyline HCl 25 MG TAB PO SCH (20:39)
[2017-08-11] MEDS: Atorvastatin Calcium 40 MG TAB PO SCH (20:40)
[2017-08-11] MEDS: Enoxaparin Sodium 40 MG/0.4 ML SYRINGE SC SCH (20:40)
--- NOTE | 2017-08-11 22:47 | PDOC.PN ---
- Subjective Encounter Start Date: 08/11/17 Encounter Start Time: 19:00 Patient seen and examined for NSTEMI s/p CABG. No new complaints. Events noted. On levophed - Objective Resuscitation Status: Resuscitation Status FULL:Full Resuscitation MAR Reviewed: Yes Vital Signs & Weight: Vital Signs (12 hours) Temp Pulse Resp Pulse Ox 08/11/17 20:00 99.3 F 111 H 21 H 95 08/11/17 19:29 111 H 21 H 95 08/11/17 18:36 95 08/11/17 18:35 96 08/11/17 16:00 98.8 F 96 08/11/17 13:20 95 08/11/17 13:17 99 24 H 95 08/11/17 12:00 98.4 F Weight Weight 196 lb 6.91 oz Most Recent Monitor Data Heart Rate from ECG 105 NIBP 101/66 NIBP BP-Mean 76 Respiration from ECG 18 SpO2 96 I&O: 08/10/17 08/11/17 08/12/17 06:59 06:59 06:59 Intake Total 2301 2309 Output Total 1125 1290 Balance 1176 1019 Result Diagrams: 08/12/17 04:00 08/12/17 04:00 Additional Labs: Accuchecks 08/11/17 08/11/17 08/11/17 21:36 14:50 10:07 POC Glucose 215 H 249 H 168 H 08/11/17 08/11/17 08/11/17 06:20 05:39 04:14 POC Glucose 127 H 161 H 133 H 08/11/17 08/11/17 08/11/17 03:13 02:10 01:09 POC Glucose 134 H 92 112 H 08/11/17 08/10/17 08/10/17 00:21 23:17 22:17 POC Glucose 113 H 123 H 135 H 08/10/17 08/10/17 21:10 19:46 POC Glucose 157 H 147 H EKG Reviewed by me: Yes (Tele SR) Phys Exam - Physical Examination Constitutional: NAD Respiratory: no wheezing, no rhonchi Dec AE at bases Cardiovascular: RRR, no rub Gastrointestinal: soft, non-tender, positive bowel sounds Musculoskeletal: no edema Dx/Plan (1) NSTEMI (non-ST elevated myocardial infarction) Code(s): I21.4 - NON-ST ELEVATION (NSTEMI) MYOCARDIAL INFARCTION Status: Acute (2) S/P CABG (coronary artery bypass graft) Code(s): Z95.1 - PRESENCE OF AORTOCORONARY BYPASS GRAFT Status: Acute (3) HTN (hypertension) Code(s): I10 - ESSENTIAL (PRIMARY) HYPERTENSION Status: Acute (4) DM2 (diabetes mellitus, type 2) Status: Acute (5) GERD (gastroesophageal reflux disease) Code(s): K21.9 - GASTRO-ESOPHAGEAL REFLUX DISEASE WITHOUT ESOPHAGITIS Status: Chronic (6) ALVA (acute kidney injury) Code(s): N17.9 - ACUTE KIDNEY FAILURE, UNSPECIFIED Status: Acute (7) Obesity (BMI 30.0-34.9) Code(s): E66.9 - OBESITY, UNSPECIFIED Status: Chronic - Plan DVT proph w/SCDs Cont supportive care -: ALVA prob due to JENN/Cardiorenal syndrome -: AM labs -: Cont current meds as below Review of Systems - Review of Systems Cardiovascular: negative: chest pain, palpitations, orthopnea, paroxysmal nocturnal dyspnea, edema, light headedness, other Gastrointestinal: negative: Nausea, Vomiting, Abdominal Pain, Diarrhea, Constipation, Melena, Hematochezia, Other - Medications/Allergies Allergies/Adverse Reactions: Allergies Allergy/AdvReac Type Severity Reaction Status Date / Time No Known Allergies Allergy Verified 08/10/17 03:26 Medications: Current Medications Acetaminophen (Tylenol) 650 mg PO Q6H PRN PRN Reason: Headache/Fever Or Mild Pain Hydrocodone Bitart/Acetaminophen ([place] 5/325) 1 tab PO Q4H PRN PRN Reason: Moderate Pain (4-6) Hydrocodone Bitart/Acetaminophen ([place] 5/325) 2 tab PO Q4H PRN PRN Reason: Severe Pain (7-10) Last Admin: 08/11/17 21:29 Dose: 2 tab Al Hydroxide/Mg Hydroxide (Maalox) 30 ml PO Q4H PRN PRN Reason: Indigestion Albuterol/Ipratropium (Duoneb) 3 ml NEB [id number] PRN PRN Reason: SHORTNESS OF BREATH Albuterol/Ipratropium (Duoneb) 3 ml NEB [id number] Last Admin: 08/11/17 18:35 Dose: 3 ml Amitriptyline HCl (Elavil) 50 mg PO HS [facility] Last Admin: 08/11/17 20:39 Dose: 50 mg Aspirin (Aspirin) 325 mg PO DAILY [facility] Last Admin: 08/11/17 08:38 Dose: 325 mg Atorvastatin Calcium (Lipitor) 40 mg PO HS [facility] Last Admin: 08/11/17 20:40 Dose: 40 mg Bisacodyl (Dulcolax) 10 mg PO Q12H PRN PRN Reason: Constipation Bisacodyl (Dulcolax) 10 mg LA Q12H PRN PRN Reason: Constipation Dextrose/Water (Dextrose 50%) 25 gm SLOW IVP PRN PRN PRN Reason: PER HYPOGLYCEMIC PROTOCOL Diazepam (Valium) 5 mg PO HS PRN PRN Reason: PAIN/INSOMNIA Last Admin: 08/10/17 19:31 Dose: 5 mg Enoxaparin Sodium (Lovenox) 40 mg SC 2100 [facility] Last Admin: 08/11/17 20:40 Dose: 40 mg Famotidine (Pepcid) 20 mg PO BID [facility] Last Admin: 08/11/17 20:39 Dose: 20 mg Fentanyl (Sublimaze) 25 mcg SLOW IVP Q2H PRN PRN Reason: Moderate Pain (4-6) Stop: 08/12/17 10:25 Last Admin: 08/10/17 19:33 Dose: 25 mcg Fentanyl (Sublimaze) 50 mcg SLOW IVP Q2H PRN PRN Reason: Severe Pain (7-10) Stop: 08/12/17 10:25 Last Admin: 08/11/17 08:03 Dose: 50 mcg Glucagon (Glucagon) 1 mg SC PRN PRN PRN Reason: PER HYPOGLYCEMIC PROTOCOL Guaifenesin/Dextromethorphan (Robitussin Dm) 15 ml PO Q4H PRN PRN Reason: Cough Hydralazine HCl (Apresoline) 10 mg SLOW IVP Q6H PRN PRN Reason: To Maintain SBP< 140mmHG Hydrocortisone Sodium Succinate (Solu-Cortef) 50 mg IVP Q6HR [facility] Stop: 08/18/17 18:01 Last Admin: 08/11/17 17:37 Dose: 50 mg Norepinephrine Bitartrate (Levophed) 250 mls @ 0 mls/hr IVPB PRN PRN; Protocol ; Titrate PRN Reason: To maintain SBP > 90 mmHG Last Admin: 08/11/17 15:57 Dose: 250 mls Nitroglycerin/Dextrose (Nitroglycerin 50 Mg/250 Ml Bot) 250 mls @ 0 mls/hr IVPB PRN PRN; Protocol; Titrate PRN Reason: To Maintain SBP< 140mmHG Sodium Chloride (Normal Saline 0.9%) 1,000 mls @ 75 mls/hr IV .[id number] [facility]OLFGANG Last Admin: 08/11/17 17:36 Dose: 1,000 mls Insulin Human Regular 100 (units/ Sodium Chloride) 101 mls @ 0 mls/hr IVPB INF WOL[place]ANG; As Directed PRN Reason: Protocol Last Admin: 08/10/17 16:31 Dose: 101 mls Dextrose/Water (D5w) 1,000 mls @ 0 mls/hr IV INF PRN; As Directed PRN Reason: PRN HYPOGLYCEMIC PROTOCOL Insulin Human Regular (Humulin R) 0 units SC Q4H PRN; Protocol PRN Reason: POST OP SLIDING SCALE Last Admin: 08/11/17 21:35 Dose: 6 unit Metoclopramide HCl (Reglan) 10 mg IVP Q6H [facility] Stop: 08/12/17 00:31 Last Admin: 08/11/17 18:22 Dose: 10 mg Morphine Sulfate (Morphine) 2 mg SLOW IVP Q15MIN PRN PRN Reason: Severe Pain (7-10) Last Admin: 08/10/17 16:41 Dose: 2 mg Ondansetron HCl (Zofran) 4 mg IVP Q6H PRN PRN Reason: Nausea/Vomiting Last Admin: 08/10/17 20:47 Dose: 4 mg Pantoprazole Sodium (Protonix) 40 mg PO HS [facility] Last Admin: 08/11/17 20:40 Dose: Not Given Potassium Chloride (Kcl) 20 meq IVPB PRN PRN PRN Reason: K level </= 4.0 Pregabalin (Lyrica) 300 mg PO HS [facility] Last Admin: 08/11/17 20:38 Dose: 300 mg Promethazine HCl (Phenergan) 6.25 mg IM Q4H PRN PRN Reason: Nausea/Vomiting Sodium Chloride (Flush - Normal Saline) 10 ml IVF Q12HR [facility] Last Admin: 08/11/17 20:40 Dose: 10 ml
[2017-08-12] MEDS: Hydrocortisone Sod Succ/PF 100 mg/2 ml Vial IVP SCH ×5 (00:29→23:22)
[2017-08-12] MEDS: Metoclopramide HCl 10 MG/2 ML VIAL IVP SCH (00:30)
[2017-08-12] MEDS: Norepinephrine 8 MG/0.9% NS 250 ML IVPB PRN (00:41)
[2017-08-12] MEDS: Sodium Chloride 0.9% 1,000 ML IV SCH ×2 (00:52→13:42)
[2017-08-12 04:41] LABS: #Neutrophils 7.7 thou/uL (1.40-6.50); %Basophils 0.3 % (0.0-1.0); %Eosinophils 0.1 % (0.0-10.0); %Monocytes 10.5 % (0.0-10.0); %Neutrophils 79.1 % (42.0-75.0); Hemoglobin 7.8 g/dL (14.0-18.0); Mean Corpuscular HGB CONC 34.7 g/dL (32.0-36.0); Mean Corpuscular Hemoglobin 33.3 pg (27.0-31.0); Mean Corpuscular Volume 96.1 fL (78.0-98.0); Mean Platelet Volume 7.9 fL (7.4-10.4); Platelet Count 141 thou/uL (130-400); Red Blood Cell (RBC) Count 2.34 mill/uL (4.70-6.10); White Blood Cell (WBC) Count 9.8 thou/uL (4.8-10.8)
[2017-08-12 05:12] LABS: Anion Gap 12 mmol/L (10-20); BUN (Urea Nitrogen) 16 mg/dL (8.4-25.7); Calc. Creatinine Clearance 91 mL/min (70-130); Calcium 7.9 mg/dL (7.8-10.44); Carbon Dioxide 22 mmol/L (23-31); Chloride 109 mmol/L (98-107); Estimated GFR-MDRD 75; Glucose 193 mg/dL (80-115); Potassium 4.5 mmol/L (3.5-5.1); Sodium 138 mmol/L (136-145)
[2017-08-12] MEDS: HYDROcodone/Acetaminophen 5/325 mg Tablet PO PRN ×3 (05:36→23:24)
[2017-08-12] MEDS: Insulin Regular 300 UNITS/3 ML VIAL SC PRN ×4 (05:41→20:55)
[2017-08-12] MEDS ORDERED: Furosemide 40 MG/4 ML VIAL SLOW IVP SCH (08:00)
[2017-08-12] MEDS ORDERED: Metolazone 5 MG TAB PO SCH (08:00)
--- NOTE | 2017-08-12 08:42 | PDOC.PN ---
- Subjective Encounter Start Date: 08/12/17 Encounter Start Time: 08:40 Mr. Harris was seen today in follow-up of NSTEMI. He was noted to have some low oxygen saturations. He complains of some pain on the left chest tube site. - Objective Resuscitation Status: Resuscitation Status FULL:Full Resuscitation MAR Reviewed: Yes Vital Signs & Weight: Vital Signs (12 hours) Temp Pulse Resp Pulse Ox 08/12/17 07:34 93 L 08/12/17 07:33 121 H 24 H 93 L 08/12/17 07:00 97.8 F 08/12/17 04:00 97.2 F L 08/12/17 00:00 98.6 F 101 H 19 96 08/11/17 23:56 101 H 19 96 Weight Weight 201 lb 11.567 oz Most Recent Monitor Data Heart Rate from ECG 125 NIBP 118/64 NIBP BP-Mean 97 Respiration from ECG 22 SpO2 88 I&O: 08/11/17 08/12/17 08/13/17 06:59 06:59 06:59 Intake Total 2301 3292.3 Output Total 1125 2100 215 Balance 1176 1192.3 -215 Result Diagrams: 08/12/17 04:00 08/12/17 04:00 Additional Labs: Accuchecks 08/11/17 08/11/17 08/11/17 21:36 14:50 10:07 POC Glucose 215 H 249 H 168 H 08/11/17 08/11/17 08/11/17 06:20 05:39 04:14 POC Glucose 127 H 161 H 133 H 08/11/17 08/11/17 08/11/17 03:13 02:10 01:09 POC Glucose 134 H 92 112 H 08/11/17 08/10/17 08/10/17 00:21 23:17 22:17 POC Glucose 113 H 123 H 135 H 08/10/17 08/10/17 21:10 19:46 POC Glucose 157 H 147 H Phys Exam - Physical Examination HEENT: PERRLA Respiratory: no wheezing, no rales, no rhonchi, clear to auscultation bilateral decreased breath sounds in the left base Cardiovascular: RRR, no significant murmur, no rub Gastrointestinal: soft, non-tender, positive bowel sounds Musculoskeletal: no edema Dx/Plan (1) NSTEMI (non-ST elevated myocardial infarction) Code(s): I21.4 - NON-ST ELEVATION (NSTEMI) MYOCARDIAL INFARCTION Status: Acute (2) ALVA (acute kidney injury) Code(s): N17.9 - ACUTE KIDNEY FAILURE, UNSPECIFIED Status: Acute (3) DM2 (diabetes mellitus, type 2) Status: Chronic (4) HTN (hypertension) Code(s): I10 - ESSENTIAL (PRIMARY) HYPERTENSION Status: Chronic (5) S/P CABG (coronary artery bypass graft) Code(s): Z95.1 - PRESENCE OF AORTOCORONARY BYPASS GRAFT Status: Acute - Plan * Hypoxemia- discussed with Dr. Bang- this is mutli-factorial - from poor inpiratory effort from pain of the chest tube, JENNIFFER, and anemia- plan is to transfuse a unit of RBC's for now * Post CABG- as per CV surgery * DM- blood glucose is slightly elevated- will continue Insulin protocol * HTN- blood pressure- supported by Levophed * Acute kidney injury- resolved
--- NOTE | 2017-08-12 08:50 | PRG ---
DATE OF SERVICE: 08/12/2017 This morning he is awake, alert, responsive. He was on BiPAP all night. This morning he was hypoxic . PHYSICAL EXAMINATION: VITAL SIGNS: On nasal O2 on 50%, sats are 92%, pulse 125, blood pressure 110/80, respiration 20. CHEST: Chest revealed occasional wheeze. CARDIAC: Normal S1, S2, no gallops. ABDOMEN: Soft, no masses. NEURO: Neurologically he is appropriate. LABORATORY DATA: White count 9000, H&H 7 and 22. His hematocrit has dropped from a baseline of 40 t o 22. Otherwise, his electrolytes are normal. A chest x-ray did not show any acute infiltrates. IMPRESSION: 1. Hypertension. 2. Status post coronary artery bypass graft. 3. Relative adrenal insufficiency with a cortisol level of only 16. He was started on hydrocortison e. 4. Status post coronary artery bypass graft. 5. Sleep apnea. PLAN: I have added Pulmicort to his nebs, packed cells will be transfused. Continue hydrocortisone. Empiric antibiotics, nebulizer treatments, supportive care. I will follow.
[2017-08-12] MEDS: Furosemide 40 MG/4 ML VIAL SLOW IVP SCH ×2 (08:58→13:38)
[2017-08-12] MEDS: Famotidine 20 MG TAB PO SCH ×2 (08:59→21:03)
[2017-08-12] MEDS: Aspirin 325 MG TAB PO SCH (08:59)
[2017-08-12] MEDS: cefTRIAXone\\ROCEPHIN 1 GM in Sodium Chloride 0.9% 100 ML IVPB SCH (09:00)
--- NOTE | 2017-08-12 09:33 | RAD ---
AP VIEW CHEST: Date: 08/12/17 HISTORY: Postoperative open heart surgery. FINDINGS: Comparison made to previous exam from 08/11/17. AP view of chest obtained and demonstrates left-sided chest tube in place. Sternotomy wires seen. The re is a left subclavian central line in place. There is an area of newly developed lucency in the lower aspect of the right hemidiaphragm. This may represent an area of horizontal atelectasis, although I cannot completely exclude the possibility of subpulmonic pneumothorax. Other possibilities could include some air beneath the right hemidiaphragm; however, these, I suspect, are less likely. If there is concern that any of these components may be present, then consider noncontrast enhanced CT of the chest to further evaluate the right hemithoraci c area of lucency or repeat chest radiograph with decubitus views. IMPRESSION: Likely area of atelectasis in the right lung base; however, subdiaphragmatic air or subpulmonic pneum othorax cannot be excluded. POS: WERNER
--- NOTE | 2017-08-12 18:26 | PDOC.CTH ---
Cardiology Progress Note - Subjective Feels better today. Less pain present - Objective Vital Signs Temp Pulse Resp Pulse Ox 08/12/17 16:00 98.8 F 08/12/17 13:54 118 H 23 H 93 L 08/12/17 13:35 98.6 F 08/12/17 11:00 99 F 08/12/17 10:45 99.3 F 08/12/17 10:26 99.3 F 23 H 92 L 08/12/17 08:00 99 F 123 H 21 H 95 08/12/17 07:34 93 L 08/12/17 07:33 121 H 24 H 93 L 08/12/17 07:00 97.8 F Weight 201 lb 11.567 oz 08/11/17 08/12/17 08/13/17 06:59 06:59 06:59 Intake Total 2301 3292.3 1335 Output Total 1125 2100 3545 Balance 1176 1192.3 -2210 - Physical Examination General/Neuro: alert & oriented x3, NAD Neck: no JVD present Lungs: CTA, unlabored respirations Heart: RRR Abdomen: NT/ND, soft Extremities: + femoral B - Labs Result Diagrams: 08/12/17 04:00 08/12/17 04:00 Troponin/CKMB CK-MB (CK-2) 10.1 ng/mL (0-6.6) H* 08/09/17 23:11 Troponin I 1.719 ng/mL (< 0.028) H* 08/10/17 05:15 - Assessment/Plan 1. NQWMI 2. Severe CAD 3. S/p CABG 4. DM Still on low dose norepi Add BB when off pressors Add statin CT per CV surgery
[2017-08-12] MEDS: Budesonide 0.5 MG/2 ML NEB INH SCH (18:41)
[2017-08-12] MEDS: Amitriptyline HCl 25 MG TAB PO SCH (21:00)
[2017-08-12] MEDS: Atorvastatin Calcium 40 MG TAB PO SCH (21:00)
[2017-08-12] MEDS: Enoxaparin Sodium 40 MG/0.4 ML SYRINGE SC SCH (21:01)
[2017-08-12] MEDS: Pregabalin 75 MG CAP PO SCH (21:03)
[2017-08-12] MEDS: Diazepam 5 MG TAB PO PRN (21:08)
[2017-08-13] MEDS: Insulin Regular 300 UNITS/3 ML VIAL SC PRN ×4 (03:42→21:13)
[2017-08-13 04:30] LABS: #Basophils 0.1 thou/uL (0.0-0.2); #Lymphocytes 0.9 thou/uL (1.20-3.40); #Neutrophils 7.3 thou/uL (1.40-6.50); %Basophils 0.6 % (0.0-1.0); %Eosinophils 0.2 % (0.0-10.0); %Lymphocytes 9.9 % (21.0-51.0); %Monocytes 10.2 % (0.0-10.0); Hemoglobin 8.4 g/dL (14.0-18.0); Mean Corpuscular HGB CONC 34.9 g/dL (32.0-36.0); Mean Corpuscular Hemoglobin 33.8 pg (27.0-31.0); Mean Corpuscular Volume 96.9 fL (78.0-98.0); Mean Platelet Volume 7.9 fL (7.4-10.4); Platelet Count 133 thou/uL (130-400); RBC Distribution Width 12.2 % (11.5-14.5); Red Blood Cell (RBC) Count 2.47 mill/uL (4.70-6.10); White Blood Cell (WBC) Count 9.3 thou/uL (4.8-10.8)
[2017-08-13 04:42] LABS: Anion Gap 11 mmol/L (10-20); BUN (Urea Nitrogen) 15 mg/dL (8.4-25.7); Calc. Creatinine Clearance 100 mL/min (70-130); Calcium 8.6 mg/dL (7.8-10.44); Carbon Dioxide 28 mmol/L (23-31); Chloride 102 mmol/L (98-107); Estimated GFR-MDRD 81; Glucose 220 mg/dL (80-115); Potassium 3.8 mmol/L (3.5-5.1); Sodium 137 mmol/L (136-145)
[2017-08-13] MEDS: Hydrocortisone Sod Succ/PF 100 mg/2 ml Vial IVP SCH ×3 (05:17→18:50)
[2017-08-13] MEDS ORDERED: Bisacodyl 10 MG SUPP PR PRN (07:27)
[2017-08-13] MEDS ORDERED: Mineral Oil ENEMA PR PRN (07:27)
[2017-08-13] MEDS ORDERED: Nitroglycerin 0.4 MG TAB (25 Tab Bottle) SL PRN (07:27)
[2017-08-13] MEDS ORDERED: Artificial Tears 18 DROP/0.9 ML EA EYE PRN (07:27)
[2017-08-13] MEDS ORDERED: Zolpidem Tartrate 5 MG TAB PO PRN (07:27)
[2017-08-13] MEDS ORDERED: diphenhydrAMINE 25 MG CAP PO PRN (07:27)
[2017-08-13] MEDS: Budesonide 0.5 MG/2 ML NEB INH SCH ×2 (07:46→19:12)
--- NOTE | 2017-08-13 08:15 | PDOC.CTH ---
Cardiology Progress Note - Subjective Feels better today. Off pressors. CT still in place. - Objective Vital Signs Temp Pulse Resp Pulse Ox 08/13/17 07:47 92 L 08/13/17 07:44 109 H 22 H 92 L 08/13/17 07:37 98.1 F 112 H 18 92 L 08/13/17 07:00 98.1 F 08/13/17 04:00 99.0 F 08/13/17 01:02 120 H 29 H 97 08/13/17 01:01 98 08/13/17 00:55 92 L 08/13/17 00:00 98.8 F Weight 202 lb 2.622 oz 08/12/17 08/13/17 08/14/17 06:59 06:59 06:59 Intake Total 3292.3 1666 Output Total 2100 5580 80 Balance 1192.3 -3914 -80 - Physical Examination General/Neuro: alert & oriented x3, NAD Neck: no JVD present Lungs: CTA, unlabored respirations Heart: PMI normal, RRR Abdomen: no HSM, soft Extremities: + femoral B - Labs Result Diagrams: 08/13/17 04:18 08/13/17 04:18 Troponin/CKMB CK-MB (CK-2) 10.1 ng/mL (0-6.6) H* 08/09/17 23:11 Troponin I 1.719 ng/mL (< 0.028) H* 08/10/17 05:15 - Assessment/Plan 1. NQWMI 2. Severe CAD 3. S/p CABG 4. DM CXR with atalectasis present BB and statin IS and PT BS control CT per CV surgery
[2017-08-13] MEDS: Famotidine 20 MG TAB PO SCH (08:26)
[2017-08-13] MEDS: Aspirin 325 MG TAB PO SCH (08:27)
--- NOTE | 2017-08-13 08:28 | PRG ---
DATE OF SERVICE: 08/13/2016 This morning he is better, he is less short of breath, less pain. PHYSICAL EXAMINATION: VITAL SIGNS: Sats are 94 on 4 liters, respirations 22, pulse 109, temperature 98, blood pressure 100 /80. CHEST: Chest reveals decreased breath sounds, no wheezing. CARDIAC: Normal S1, S2, no gallops. ABDOMEN: Soft. NEURO: He is awake and moves all 4 extremities. EXTREMITIES: No edema. His chest x-ray today shows multiple chest tubes in place with bibasilar atelectatic changes. IMPRESSION: 1. Respiratory failure. 2. Hypoxemia, improved. 3. Bibasilar atelectasis. 4. Status post coronary artery bypass graft. 5. Hypertension. 6. Anemia, status post transfusion. H&H is 8 and 23. 7. Relative adrenal insufficiency. PLAN: Continuous aggressive PT and supportive care, empiric antibiotics, nebs treatment. Stress dos e of steroids as outlined. Deep venous thrombosis prophylaxis. I will follow.
[2017-08-13] MEDS ORDERED: Dextrose 5% in Water 1,000 ML IV PRN (08:44)
[2017-08-13] MEDS ORDERED: Dextrose 50% Abboject 50 ML SYRINGE SLOW IVP PRN (08:44)
[2017-08-13] MEDS ORDERED: Aspirin 325 mg Enteric Coated Tablet PO SCH (09:00)
[2017-08-13] MEDS: cefTRIAXone\\ROCEPHIN 1 GM in Sodium Chloride 0.9% 100 ML IVPB SCH (09:06)
[2017-08-13] MEDS: Metoprolol Tartrate 25 MG TAB PO SCH ×2 (09:42→21:12)
--- NOTE | 2017-08-13 10:05 | RAD ---
SINGLE VIEW OF THE CHEST: COMPARISON: 08/12/17. HISTORY: Status post open heart surgery. FINDINGS: A single view of the chest shows an enlarged but stable cardiomediastinal silhouette. The patient is status post sternotomy. The left-sided chest tubes and central venous catheter are unchanged in pos ition. No pneumothorax is seen. IMPRESSION: Stable cardiomegaly. POS: CET
--- NOTE | 2017-08-13 10:25 | PDOC.PN ---
- Subjective Encounter Start Date: 08/13/17 Encounter Start Time: 10:23 Mr. Harris was seen today in follow-up of CAD. He had an episode of confusion last night. [place] he feels ok. He has less dyspnea. He has some chest discomfort , around the incision site. - Objective Resuscitation Status: Resuscitation Status FULL:Full Resuscitation MAR Reviewed: Yes Vital Signs & Weight: Vital Signs (12 hours) Temp Pulse Resp Pulse Ox 08/13/17 07:47 92 L 08/13/17 07:44 109 H 22 H 92 L 08/13/17 07:37 98.1 F 112 H 18 92 L 08/13/17 07:00 98.1 F 08/13/17 04:00 99.0 F 08/13/17 01:02 120 H 29 H 97 08/13/17 01:01 98 08/13/17 00:55 92 L 08/13/17 00:00 98.8 F Weight Weight 202 lb 2.622 oz Most Recent Monitor Data Heart Rate from ECG 108 NIBP 93/62 NIBP BP-Mean 76 Respiration from ECG 19 SpO2 93 I&O: 08/12/17 08/13/17 08/14/17 06:59 06:59 06:59 Intake Total 3292.3 1666 Output Total 2100 5580 80 Balance 1192.3 -3914 -80 Result Diagrams: 08/13/17 04:18 08/13/17 04:18 Additional Labs: Accuchecks 08/13/17 08/12/17 08/12/17 03:42 20:55 18:05 POC Glucose 221 H 280 H 235 H 08/12/17 11:15 POC Glucose 262 H Phys Exam - Physical Examination HEENT: PERRLA Respiratory: no rales, no rhonchi, wheezing present, clear to auscultation bilateral Cardiovascular: RRR, no significant murmur, no rub Gastrointestinal: soft, non-tender, positive bowel sounds Musculoskeletal: edema present Dx/Plan (1) NSTEMI (non-ST elevated myocardial infarction) Code(s): I21.4 - NON-ST ELEVATION (NSTEMI) MYOCARDIAL INFARCTION Status: Acute (2) ALVA (acute kidney injury) Code(s): N17.9 - ACUTE KIDNEY FAILURE, UNSPECIFIED Status: Acute (3) DM2 (diabetes mellitus, type 2) Status: Chronic (4) HTN (hypertension) Code(s): I10 - ESSENTIAL (PRIMARY) HYPERTENSION Status: Chronic (5) S/P CABG (coronary artery bypass graft) Code(s): Z95.1 - PRESENCE OF AORTOCORONARY BYPASS GRAFT Status: Acute - Plan * NSTEMI- s/p CABG- clinically stable * Hypoxemia- improving. * Confusion- I suspect Sundowning. His daughter who is a nurse says he was having some mild confusion before he was hospitalized. He was in the process of having this evaluated, before he got sick with this hospitalization.- will monitor, and avoid sedating medication when possible * HTN- blood pressure is low, but acceptable * DM- blood glucose is slightly elevated- likely from steroids- will monitor, and continue SSI * He has been cleared to move out of the ICU
[2017-08-13] MEDS: HYDROcodone/Acetaminophen 5/325 mg Tablet PO PRN (12:57)
--- NOTE | 2017-08-13 16:27 | CT ---
PRELIMINARY REPORT/[facility]/EMERGENTY AFTER-HOURS PROCEDURE CT Angiography Chest With Intravenous Contrast CLINICAL HISTORY: 67 years old, male; Pain; Chest pain; Patient HX: Eneida txf. 20: 00 began having ''excruciatin g'' cp. St elevation v1, 2, 3. Reciprocal changes leads 2 and 3. Pain relieved with nitro. 324 mg asa given. 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 Tachypneic 28 and hr low 100s. Bpm per ems. Trop 0.8 at [place]. Ckmb 8.6. TECHNIQUE: Axial computed tomographic angiography images of the chest with intravenous contrast using pulmonary embolism protocol. MIP reconstructed images were created and reviewed. COMPARISON: No relevant prior studies available. FINDINGS: Pulmonary arteries: No acute findings. No pulmonary embolism. Aorta: No acute findings. No thoracic aortic aneurysm. Lungs: Scattered atelectatic and reticular fibrotic changes. No lobar consolidation or air bronchogra ms. Pleural space: No acute findings. No significant effusion. No pneumothorax. Heart: There are atheromatous calcifications of the coronary vasculature. No cardiomegaly. No signifi cant pericardial effusion. No evidence of RV dysfunction. Bones/joints: Chronic degenerative spinal changes without acute fracture or dislocation. Soft tissues: No acute findings. Lymph nodes: No acute findings. No enlarged lymph nodes. Upper abdomen: Liver is enlarged at 20.2 cm and demonstrates diffuse fatty infiltration. No solid mas s is identified. IMPRESSION: No pulmonary embolism. Atheromatous calcifications of the coronary vasculature. Enlarged, fatty liver. Thank you for allowing us to participate in the care of your patient. Dictated and Authenticated by: Shawn Estes MD 08/10/2017 12:59 AM Central Time ([place] & [place]) CT ANGIOGRAM OF THE CHEST: Comparison: 11-14-16 History: Chest pain. Technique: CT angiogram of the chest was performed in the axial plane. 3D reformatted images are subm itted for interpretation. FINDINGS: This exam was performed on 07-31-17 at 1201 a.m. Examination on the taken list and submitted for official interpretation on 08-13-17 at 4:14 p.m. This report is in agreement with the preliminary report by [facility]. No evidence of pulmonary artery embol ism to the level of the segmental arteries. Patchy opacities in the lung parenchyma are felt to be ch ronic. No pneumothorax or pleural effusion. Trachea and central bronchi are patent. Coronary artery calcifications and atherosclerotic calcifications of the aorta are noted. POS: WERNER
[2017-08-13] MEDS: Pregabalin 75 MG CAP PO SCH (21:10)
[2017-08-13] MEDS: Amitriptyline HCl 25 MG TAB PO SCH (21:11)
[2017-08-13] MEDS: Atorvastatin Calcium 40 MG TAB PO SCH (21:12)
[2017-08-13] MEDS: Enoxaparin Sodium 40 MG/0.4 ML SYRINGE SC SCH (21:13)
[2017-08-13] MEDS: Diazepam 5 MG TAB PO PRN (21:20)
[2017-08-13] MEDS: Sodium Chloride 0.9% 1,000 ML IV SCH (21:26)
[2017-08-14 05:44] LABS: Anion Gap 12 mmol/L (10-20); BUN (Urea Nitrogen) 17 mg/dL (8.4-25.7); Calc. Creatinine Clearance 98 mL/min (70-130); Carbon Dioxide 29 mmol/L (23-31); Chloride 100 mmol/L (98-107); Estimated GFR-MDRD 79; Glucose 146 mg/dL (80-115); Potassium 3.2 mmol/L (3.5-5.1); Sodium 138 mmol/L (136-145)
[2017-08-14 05:45] LABS: #Eosinphils 0.1 thou/uL (0.0-0.7); #Lymphocytes 2.6 thou/uL (1.20-3.40); #Neutrophils 7.2 thou/uL (1.40-6.50); %Basophils 0.1 % (0.0-1.0); %Eosinophils 0.6 % (0.0-10.0); %Lymphocytes 23.5 % (21.0-51.0); %Monocytes 9.5 % (0.0-10.0); %Neutrophils 66.4 % (42.0-75.0); Hemoglobin 9.1 g/dL (14.0-18.0); Mean Corpuscular HGB CONC 33.4 g/dL (32.0-36.0); Mean Corpuscular Hemoglobin 32.1 pg (27.0-31.0); Mean Corpuscular Volume 96.4 fL (78.0-98.0); Mean Platelet Volume 7.7 fL (7.4-10.4); Platelet Count 201 thou/uL (130-400); RBC Distribution Width 12.4 % (11.5-14.5); Red Blood Cell (RBC) Count 2.82 mill/uL (4.70-6.10); White Blood Cell (WBC) Count 10.8 thou/uL (4.8-10.8)
[2017-08-14] MEDS: Budesonide 0.5 MG/2 ML NEB INH SCH ×2 (06:08→18:33)
--- NOTE | 2017-08-14 08:17 | PDOC.CTH ---
Cardiology Progress Note - Subjective Echymosis to the left groin area liley from blunt cannulation. No complaints - Objective Vital Signs Temp Pulse Resp BP Pulse Ox 08/14/17 07:38 98.3 F 107 H 21 H 122/68 90 L 08/14/17 06:08 103 H 20 77 L 08/14/17 04:00 98.5 F 102 H 22 H 128/76 92 L 08/14/17 00:20 105 H 20 90 L 08/14/17 00:00 110 H 20 08/13/17 20:25 97.9 F 111 H 20 93 L 08/13/17 20:20 97.9 F 111 H 20 119/74 92 L Weight 192 lb 6.4 oz 08/13/17 08/14/17 08/15/17 06:59 06:59 06:59 Intake Total 1666 1870 Output Total 5593 3270 Balance -1809 -1400 - Physical Examination General/Neuro: alert & oriented x3, NAD Neck: carotid US brisk, no JVD present Lungs: CTA, unlabored respirations Heart: PMI normal, RRR Abdomen: no HSM, NT/ND Extremities: + femoral B - Labs Result Diagrams: 08/14/17 04:24 08/14/17 04:24 Troponin/CKMB CK-MB (CK-2) 10.1 ng/mL (0-6.6) H* 08/09/17 23:11 Troponin I 1.719 ng/mL (< 0.028) H* 08/10/17 05:15 - Assessment/Plan 1. NQWMI 2. Severe CAD 3. S/p CABG 4. DM Increase metoprolol to 25mg BID PT and IS Pt would like to go to SNU in [place]. 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
[2017-08-14] MEDS: Metoprolol Tartrate 25 MG TAB PO SCH ×2 (09:12→21:04)
[2017-08-14] MEDS: Aspirin 325 mg Enteric Coated Tablet PO SCH (09:12)
[2017-08-14] MEDS: Bisacodyl 5 MG TAB PO PRN (09:15)
[2017-08-14] MEDS: HYDROcodone/Acetaminophen 5/325 mg Tablet PO PRN ×2 (10:18→17:45)
--- NOTE | 2017-08-14 10:55 | PRG ---
DATE OF SERVICE: 08/14/2017 SUBJECTIVE: This morning, he is awake, alert and responsive. All his chest tubes were removed. He is feeling better. PHYSICAL EXAMINATION: VITAL SIGNS: His sats are 98% on 3 liters, respirations 21, temperature 98, blood pressure 121/68. CHEST: Decreased breath sounds, no wheezing. CARDIAC: Normal S1, S2, no gallops. ABDOMEN: Soft, no masses. LABORATORY DATA: White count 10,000, H&H is 9 and 27, platelet count normal. Electrolytes are yehuda l. IMPRESSION: Respiratory failure, status post coronary artery bypass graft, sleep apnea, severe decon ditioning. PLAN: The patient appears to have improved significantly. Continue aggressive PT, eventually placem ent. We will follow.
[2017-08-14] MEDS: Insulin Regular 300 UNITS/3 ML VIAL SC PRN ×3 (11:17→21:05)
--- NOTE | 2017-08-14 13:04 | PDOC.PN ---
- Subjective Encounter Start Date: 08/14/17 Encounter Start Time: 07:20 Pt seen for followup re: NSTEMI. Denies chest pain, shortness of breath, fevers or chills. - Objective Resuscitation Status: Resuscitation Status FULL:Full Resuscitation MAR Reviewed: Yes Vital Signs & Weight: Vital Signs (12 hours) Temp Pulse Resp BP Pulse Ox 08/14/17 11:35 98.1 F 107 H 18 113/62 98 08/14/17 11:30 100 20 95 08/14/17 07:38 98.3 F 107 H 21 H 122/68 90 L 08/14/17 06:08 103 H 20 77 L 08/14/17 04:00 98.5 F 102 H 22 H 128/76 92 L Weight Weight 192 lb 6.4 oz Most Recent Monitor Data Heart Rate from ECG 108 NIBP 105/86 NIBP BP-Mean 99 Respiration from ECG 24 SpO2 91 I&O: 08/13/17 08/14/17 08/15/17 06:59 06:59 06:59 Intake Total 1666 1870 Output Total 5580 3270 Balance -3914 -1400 Result Diagrams: 08/14/17 04:24 08/14/17 04:24 Additional Labs: Accuchecks 08/14/17 08/14/17 08/13/17 10:28 05:35 21:02 POC Glucose 220 H 138 H 253 H 08/13/17 17:37 POC Glucose 219 H EKG Reviewed by me: Yes (Tele: sinus tachycardia) Phys Exam - Physical Examination Obese HEENT: moist MMs Neck: supple Respiratory: clear to auscultation bilateral Cardiovascular: RRR Gastrointestinal: soft Neurological: moves all 4 limbs Psychiatric: normal affect Deviation from normal: L groin bruise Dx/Plan (1) NSTEMI (non-ST elevated myocardial infarction) Code(s): I21.4 - NON-ST ELEVATION (NSTEMI) MYOCARDIAL INFARCTION Status: Acute Comment: s/p CABG, improving (2) Hypokalemia Code(s): E87.6 - HYPOKALEMIA Status: Acute Comment: replace potassium (3) S/P CABG (coronary artery bypass graft) Code(s): Z95.1 - PRESENCE OF AORTOCORONARY BYPASS GRAFT Status: Acute Comment: CV surgery following (4) DM2 (diabetes mellitus, type 2) Status: Chronic Comment: continue accuchecks, insulin sliding scale (5) HTN (hypertension) Code(s): I10 - ESSENTIAL (PRIMARY) HYPERTENSION Status: Chronic Comment: conytrolled and at goal (6) Obesity (BMI 30.0-34.9) Code(s): E66.9 - OBESITY, UNSPECIFIED Status: Chronic - Plan * . Review of Systems - Review of Systems Constitutional: negative: fever, chills, sweats, weakness, malaise Cardiovascular: negative: chest pain, palpitations, orthopnea, paroxysmal nocturnal dyspnea, edema, light headedness - Medications/Allergies Allergies/Adverse Reactions: Allergies Allergy/AdvReac Type Severity Reaction Status Date / Time No Known Allergies Allergy Verified 08/10/17 03:26 Medications: Current Medications Hydrocodone Bitart/Acetaminophen ([place] 5/325) 1 tab PO Q4H PRN PRN Reason: Moderate Pain (4-6) Last Admin: 08/14/17 10:18 Dose: 1 tab Hydrocodone Bitart/Acetaminophen ([place] 5/325) 2 tab PO Q4H PRN PRN Reason: Severe Pain (7-10) Last Admin: 08/13/17 12:57 Dose: 2 tab Al Hydroxide/Mg Hydroxide (Maalox) 30 ml PO Q4H PRN PRN Reason: Indigestion Albuterol/Ipratropium (Duoneb) 3 ml NEB [id number] PRN PRN Reason: SHORTNESS OF BREATH Albuterol/Ipratropium (Duoneb) 3 ml NEB [id number] [facility] Last Admin: 08/14/17 11:30 Dose: 3 ml Amitriptyline HCl (Elavil) 50 mg PO [facility] Last Admin: 08/13/17 21:11 Dose: 50 mg Artificial Tears (Tears Naturale) 1 drop EA EYE PRN PRN PRN Reason: Dry Eyes Aspirin (Ecotrin) 325 mg PO DAILY [facility] Last Admin: 08/14/17 09:12 Dose: 325 mg Atorvastatin Calcium (Lipitor) 40 mg PO [facility] Last Admin: 08/13/17 21:12 Dose: 40 mg Bisacodyl (Dulcolax) 10 mg PO Q12H PRN PRN Reason: Constipation Last Admin: 08/14/17 09:15 Dose: 10 mg Bisacodyl (Dulcolax) 10 mg [place] Q12H PRN PRN Reason: Constipation Budesonide (Pulmicort Neb Solution) 0.5 mg INH BID-RT [facility] Last Admin: 08/14/17 06:08 Dose: 0.5 mg Dextrose/Water (Dextrose 50%) 25 gm SLOW IVP PRN PRN PRN Reason: PER HYPOGLYCEMIC PROTOCOL Diazepam (Valium) 5 mg PO HS PRN PRN Reason: PAIN/INSOMNIA Last Admin: 08/13/17 21:20 Dose: 5 mg Diphenhydramine HCl (Benadryl) 25 mg PO Q6H PRN PRN Reason: Itching & Insomnia or Bryan Brayan Enoxaparin Sodium (Lovenox) 40 mg SC 2100 [facility] Last Admin: 08/13/17 21:13 Dose: 40 mg Glucagon (Glucagon) 1 mg SC PRN PRN PRN Reason: PER HYPOGLYCEMIC PROTOCOL Guaifenesin/Dextromethorphan (Robitussin Dm) 15 ml PO Q4H PRN PRN Reason: Cough Dextrose/Water (D5w) 1,000 mls @ 0 mls/hr IV INF PRN; As Directed PRN Reason: PRN HYPOGLYCEMIC PROTOCOL Insulin Human Regular (Humulin R) 0 units SC Q4H PRN; Protocol PRN Reason: POST OP SLIDING SCALE Last Admin: 08/14/17 11:17 Dose: 6 unit Metoprolol Tartrate (Lopressor) 12.5 mg PO BID [facility] Last Admin: 08/14/17 09:12 Dose: 12.5 mg Mineral Oil (Fleet Mineral Oil) 133 ml [place] DAILYPRN PRN PRN Reason: Constipation Nitroglycerin (Nitrostat) 0.4 mg SL Q5MIN PRN PRN Reason: Chest Pain Ondansetron HCl (Zofran) 4 mg IVP Q6H PRN PRN Reason: Nausea/Vomiting Last Admin: 08/10/17 20:47 Dose: 4 mg Pregabalin (Lyrica) 300 mg PO HS [facility] Last Admin: 08/13/17 21:10 Dose: 300 mg Sodium Chloride (Flush - Normal Saline) 10 ml IVF Q12HR [facility] Last Admin: 08/14/17 09:12 Dose: 10 ml Zolpidem Tartrate (Ambien) 5 mg PO HSPRN PRN PRN Reason: Insomnia
[2017-08-14] MEDS ORDERED: Potassium Chloride 20 MEQ TAB PO SCH (13:15)
[2017-08-14] MEDS ORDERED: Metoprolol Tartrate 25 MG TAB PO SCH (17:00)
[2017-08-14] MEDS: Amitriptyline HCl 25 MG TAB PO SCH (21:04)
[2017-08-14] MEDS: Atorvastatin Calcium 40 MG TAB PO SCH (21:04)
[2017-08-14] MEDS: Pregabalin 75 MG CAP PO SCH (21:04)
[2017-08-14] MEDS: Enoxaparin Sodium 40 MG/0.4 ML SYRINGE SC SCH (21:04)
[2017-08-15] MEDS ORDERED: Lorazepam 2 MG/ML VIAL ONE (03:53)
[2017-08-15] MEDS: Lorazepam 2 MG/ML VIAL SLOW IVP SCH ×2 (04:40→04:46)
[2017-08-15 06:00] LABS: Anion Gap 13 mmol/L (10-20); BUN (Urea Nitrogen) 19 mg/dL (8.4-25.7); Calc. Creatinine Clearance 89 mL/min (70-130); Calcium 8.8 mg/dL (7.8-10.44); Carbon Dioxide 28 mmol/L (23-31); Chloride 98 mmol/L (98-107); Estimated GFR-MDRD 77; Glucose 142 mg/dL (80-115); Potassium 3.4 mmol/L (3.5-5.1); Sodium 136 mmol/L (136-145)
[2017-08-15 06:16] LABS: Band 1 % (5-11); Eosinophils 4 % (0-10); Hemoglobin 9.6 g/dL (14.0-18.0); Lymphocytes 27 % (21-51); MDiff Complete? YES; Mean Corpuscular HGB CONC 34.2 g/dL (32.0-36.0); Mean Corpuscular Hemoglobin 32.9 pg (27.0-31.0); Mean Corpuscular Volume 96.2 fL (78.0-98.0); Monocytes 7 % (0-10); Neutrophil 61 % (42-75); Nucleated RBC 5 % (0); PLT Morphology Comment Appears Adequate; Platelet Count 234 thou/uL (130-400); Polychromasia MODERATE = 3-4 cells (100X) (0-2/hpf); RBC Distribution Width 12.9 % (11.5-14.5); Red Blood Cell (RBC) Count 2.92 mill/uL (4.70-6.10); White Blood Cell (WBC) Count 10.2 thou/uL (4.8-10.8)
[2017-08-15] MEDS: Insulin Regular 300 UNITS/3 ML VIAL SC PRN ×2 (06:35→12:23)
[2017-08-15] MEDS: Budesonide 0.5 MG/2 ML NEB INH SCH ×2 (06:36→18:50)
[2017-08-15] MEDS: Metoprolol Tartrate 25 MG TAB PO SCH ×2 (08:54→21:00)
[2017-08-15] MEDS: Aspirin 325 mg Enteric Coated Tablet PO SCH (08:54)
--- NOTE | 2017-08-15 09:25 | PRG ---
DATE OF SERVICE: 08/15/2017 This morning he is still confused. PHYSICAL EXAMINATION: VITAL SIGNS: Sats are 90% on 3 liters, pulse 103, temperature 98, blood pressure is 107/63. CHEST: Chest reveals decreased breath sounds, no wheezing. CARDIAC: Normal S1, S2, no gallops. ABDOMEN: Soft, no masses. White count 10,000, H&H 9 and 28, platelet count 234. Electrolytes are normal. IMPRESSION: 1. Respiratory failure. 2. Encephalopathy. 3. Status post coronary artery bypass graft. PLAN: Continue neb treatments, supportive care, PT, eventually placement.
[2017-08-15] MEDS ORDERED: Lorazepam 2 MG/ML VIAL SLOW IVP PRN (12:00)
[2017-08-15] MEDS: BEER 1 CAN PO SCH ×2 (12:22→16:37)
[2017-08-15] MEDS: Guaifenesin DM 100-10/5 ML UDCUP PO PRN ×2 (18:15→23:52)
[2017-08-15] MEDS: Bisacodyl 5 MG TAB PO PRN (18:15)
--- NOTE | 2017-08-15 18:32 | PDOC.PN ---
- Subjective Encounter Start Date: 08/15/17 Encounter Start Time: 08:40 Pt seen for followup re: Delirium. Confused, says he is in [place]. Unable to complete ROS. - Objective Resuscitation Status: Resuscitation Status FULL:Full Resuscitation MAR Reviewed: Yes Vital Signs & Weight: Vital Signs (12 hours) Temp Pulse Pulse Pulse Resp BP BP 08/15/17 16:00 98.3 F 110 H 20 08/15/17 14:24 124 H 101 H 110/66 107/64 08/15/17 13:46 104 H 20 08/15/17 11:58 98.1 F 101 H 18 08/15/17 09:04 117 H 115 H 110/59 L 126/57 L 08/15/17 08:45 98.3 F 103 H 18 08/15/17 08:00 98.1 F 101 H 18 08/15/17 06:41 08/15/17 06:36 107 H 16 BP Pulse Ox Pulse Ox Pulse Ox 08/15/17 16:00 114/61 92 L 08/15/17 14:24 90 L 90 L 08/15/17 13:46 93 L 08/15/17 11:58 114/68 98 08/15/17 09:04 94 L 91 L 08/15/17 08:45 107/63 92 L 08/15/17 08:00 92 L 08/15/17 06:41 92 L 08/15/17 06:36 Weight Weight 187 lb Most Recent Monitor Data Heart Rate from ECG 108 NIBP 105/86 NIBP BP-Mean 99 Respiration from ECG 24 SpO2 91 I&O: 08/14/17 08/15/17 08/16/17 06:59 06:59 06:59 Intake Total 6146 584 3584 Output Total 3270 1350 1400 Balance -1400 -630 -320 Result Diagrams: 08/15/17 05:20 08/15/17 05:20 Additional Labs: Accuchecks 08/15/17 08/15/17 08/15/17 16:46 13:19 10:43 POC Glucose 147 H 158 H 184 H 08/15/17 08/14/17 05:53 20:57 POC Glucose 168 H 234 H EKG Reviewed by me: Yes (Tele: NSR) Phys Exam - Physical Examination Constitutional: NAD HEENT: moist MMs Neck: supple Respiratory: clear to auscultation bilateral Cardiovascular: RRR Gastrointestinal: soft Neurological: moves all 4 limbs Psychiatric: normal affect Deviation from normal: Oriented to person only Dx/Plan (1) Delirium Code(s): R41.0 - DISORIENTATION, UNSPECIFIED Status: Acute Comment: Reportedly improving, ? due to alcohol withdrawal (2) NSTEMI (non-ST elevated myocardial infarction) Code(s): I21.4 - NON-ST ELEVATION (NSTEMI) MYOCARDIAL INFARCTION Status: Acute Comment: s/p CABG (3) Hypokalemia Code(s): E87.6 - HYPOKALEMIA Status: Acute Comment: replacing potassium (4) S/P CABG (coronary artery bypass graft) Code(s): Z95.1 - PRESENCE OF AORTOCORONARY BYPASS GRAFT Status: Acute Comment: CV surgery following (5) DM2 (diabetes mellitus, type 2) Status: Chronic Comment: on accuchecks, insulin sliding scale (6) HTN (hypertension) Code(s): I10 - ESSENTIAL (PRIMARY) HYPERTENSION Status: Chronic Comment: conytrolled and at goal (7) Obesity (BMI 30.0-34.9) Code(s): E66.9 - OBESITY, UNSPECIFIED Status: Chronic - Plan * .
[2017-08-15] MEDS: Amitriptyline HCl 25 MG TAB PO SCH (20:59)
[2017-08-15] MEDS: Enoxaparin Sodium 40 MG/0.4 ML SYRINGE SC SCH (21:00)
[2017-08-15] MEDS: Atorvastatin Calcium 40 MG TAB PO SCH (21:00)
[2017-08-15] MEDS: Pregabalin 75 MG CAP PO SCH (21:00)
[2017-08-16 05:34] LABS: #Eosinphils 0.1 thou/uL (0.0-0.7); #Monocytes 1.2 thou/uL (0.11-0.59); #Neutrophils 6.3 thou/uL (1.40-6.50); %Basophils 0.4 % (0.0-1.0); %Eosinophils 1.5 % (0.0-10.0); %Lymphocytes 20.5 % (21.0-51.0); %Monocytes 12.8 % (0.0-10.0); %Neutrophils 64.8 % (42.0-75.0); Hemoglobin 10.2 g/dL (14.0-18.0); Mean Corpuscular HGB CONC 34.7 g/dL (32.0-36.0); Mean Corpuscular Hemoglobin 33.3 pg (27.0-31.0); Mean Platelet Volume 6.6 fL (7.4-10.4); Platelet Count 229 thou/uL (130-400); RBC Distribution Width 12.8 % (11.5-14.5); Red Blood Cell (RBC) Count 3.06 mill/uL (4.70-6.10); White Blood Cell (WBC) Count 9.7 thou/uL (4.8-10.8)
[2017-08-16 05:45] LABS: Anion Gap 11 mmol/L (10-20); BUN (Urea Nitrogen) 17 mg/dL (8.4-25.7); Calc. Creatinine Clearance 84 mL/min (70-130); Calcium 8.9 mg/dL (7.8-10.44); Carbon Dioxide 29 mmol/L (23-31); Chloride 98 mmol/L (98-107); Estimated GFR-MDRD 78; Glucose 147 mg/dL (80-115); Potassium 3.3 mmol/L (3.5-5.1); Sodium 135 mmol/L (136-145)
[2017-08-16] MEDS: Budesonide 0.5 MG/2 ML NEB INH SCH ×2 (07:53→18:37)
[2017-08-16] MEDS: BEER 1 CAN PO SCH ×4 (08:23→18:46)
[2017-08-16] MEDS: Metoprolol Tartrate 25 MG TAB PO SCH ×2 (08:26→20:37)
[2017-08-16] MEDS: Aspirin 325 mg Enteric Coated Tablet PO SCH (08:26)
[2017-08-16] MEDS: Guaifenesin DM 100-10/5 ML UDCUP PO PRN (08:27)
[2017-08-16] MEDS: Insulin Regular 300 UNITS/3 ML VIAL SC PRN ×2 (11:21→20:43)
--- NOTE | 2017-08-16 12:35 | PDOC.PN ---
- Subjective Encounter Start Date: 08/16/17 Encounter Start Time: 07:20 Pt seen for followup re: NSTEMI. Denies chest pain, shortness of breath, fevers or chills. - Objective Resuscitation Status: Resuscitation Status FULL:Full Resuscitation MAR Reviewed: Yes Vital Signs & Weight: Vital Signs (12 hours) Temp Pulse Resp BP Pulse Ox 08/16/17 11:19 99 F 101 H 18 101/67 92 L 08/16/17 08:20 99.1 F 111 H 18 116/65 92 L 08/16/17 08:00 99 F 101 H 18 92 L 08/16/17 07:53 108 H 16 08/16/17 07:00 91 L 08/16/17 04:00 98.2 F 106 H 14 111/68 93 L Weight Weight 176 lb 3.2 oz Most Recent Monitor Data Heart Rate from ECG 108 NIBP 105/86 NIBP BP-Mean 99 Respiration from ECG 24 SpO2 91 I&O: 08/15/17 08/16/17 08/17/17 06:59 06:59 06:59 Intake Total 720 1560 Output Total 1350 2000 Balance -630 -440 Result Diagrams: 08/17/17 05:31 08/17/17 05:31 Additional Labs: Accuchecks 08/16/17 08/16/17 08/15/17 10:55 05:24 21:14 POC Glucose 212 H 149 H 193 H 08/15/17 08/15/17 16:46 13:19 POC Glucose 147 H 158 H EKG Reviewed by me: Yes (Tele: NSR) Phys Exam - Physical Examination Constitutional: NAD HEENT: moist MMs Neck: supple Respiratory: clear to auscultation bilateral Cardiovascular: RRR Gastrointestinal: soft Neurological: moves all 4 limbs Psychiatric: normal affect, A&O x 3 Dx/Plan (1) NSTEMI (non-ST elevated myocardial infarction) Code(s): I21.4 - NON-ST ELEVATION (NSTEMI) MYOCARDIAL INFARCTION Status: Acute Comment: s/p CABG (2) Hypokalemia Code(s): E87.6 - HYPOKALEMIA Status: Acute Comment: will replace potassium (3) S/P CABG (coronary artery bypass graft) Code(s): Z95.1 - PRESENCE OF AORTOCORONARY BYPASS GRAFT Status: Acute Comment: CV surgery following (4) DM2 (diabetes mellitus, type 2) Status: Chronic Comment: continue accuchecks, insulin sliding scale (5) HTN (hypertension) Code(s): I10 - ESSENTIAL (PRIMARY) HYPERTENSION Status: Chronic Comment: controlled and at goal (6) Obesity (BMI 30.0-34.9) Code(s): E66.9 - OBESITY, UNSPECIFIED Status: Chronic (7) Delirium Code(s): R41.0 - DISORIENTATION, UNSPECIFIED Status: Resolved Comment: resolved - Plan * . Review of Systems - Review of Systems Respiratory: negative: Cough, Shortness of Breath, SOB with Excertion, Pleuritic Pain, Wheezing Cardiovascular: negative: chest pain, palpitations, orthopnea, paroxysmal nocturnal dyspnea, edema, light headedness - Medications/Allergies Allergies/Adverse Reactions: Allergies Allergy/AdvReac Type Severity Reaction Status Date / Time No Known Allergies Allergy Verified 08/10/17 03:26 Medications: Current Medications Hydrocodone Bitart/Acetaminophen ([place] 5/325) 1 tab PO Q4H PRN PRN Reason: Moderate Pain (4-6) Last Admin: 08/14/17 17:45 Dose: 1 tab Hydrocodone Bitart/Acetaminophen ([place] 5/325) 2 tab PO Q4H PRN PRN Reason: Severe Pain (7-10) Last Admin: 08/13/17 12:57 Dose: 2 tab Al Hydroxide/Mg Hydroxide (Maalox) 30 ml PO Q4H PRN PRN Reason: Indigestion Albuterol/Ipratropium (Duoneb) 3 ml NEB [id number] PRN PRN Reason: SHORTNESS OF BREATH Albuterol/Ipratropium (Duoneb) 3 ml EZPAP [id number] [facility] Amitriptyline HCl (Elavil) 50 mg PO HS [facility] Last Admin: 08/15/17 20:59 Dose: 50 mg Artificial Tears (Tears Naturale) 1 drop EA EYE PRN PRN PRN Reason: Dry Eyes Aspirin (Ecotrin) 325 mg PO DAILY [facility] Last Admin: 08/16/17 08:26 Dose: 325 mg Atorvastatin Calcium (Lipitor) 40 mg PO HS [facility] Last Admin: 08/15/17 21:00 Dose: 40 mg Beer (Beer) 1 each PO [facility] Last Admin: 08/16/17 11:20 Dose: Not Given Bisacodyl (Dulcolax) 10 mg PO Q12H PRN PRN Reason: Constipation Last Admin: 08/15/17 18:15 Dose: 10 mg Bisacodyl (Dulcolax) [address] Q12H PRN PRN Reason: Constipation Budesonide (Pulmicort Neb Solution) 0.5 mg INH BID-RT [facility] Last Admin: 08/16/17 07:53 Dose: 0.5 mg Dextrose/Water (Dextrose 50%) 25 gm SLOW IVP PRN PRN PRN Reason: PER HYPOGLYCEMIC PROTOCOL Diazepam (Valium) 5 mg PO HS PRN PRN Reason: PAIN/INSOMNIA Last Admin: 08/13/17 21:20 Dose: 5 mg Diphenhydramine HCl (Benadryl) 25 mg PO Q6H PRN PRN Reason: Itching & Insomnia or Bryan Brayan Enoxaparin Sodium (Lovenox) 40 mg SC 2100 [facility] Last Admin: 08/15/17 21:00 Dose: 40 mg Glucagon (Glucagon) 1 mg SC PRN PRN PRN Reason: PER HYPOGLYCEMIC PROTOCOL Guaifenesin/Dextromethorphan (Robitussin Dm) 15 ml PO Q4H PRN PRN Reason: Cough Last Admin: 08/16/17 08:27 Dose: 15 ml Dextrose/Water (D5w) 1,000 mls @ 0 mls/hr IV INF PRN; As Directed PRN Reason: PRN HYPOGLYCEMIC PROTOCOL Insulin Human Regular (Humulin R) 0 units SC Q4H PRN; Protocol PRN Reason: POST OP SLIDING SCALE Last Admin: 08/16/17 11:21 Dose: 6 unit Lorazepam (Ativan) 0.5 mg SLOW IVP Q8H PRN PRN Reason: Anxiety/Agitation Metoprolol Tartrate (Lopressor) 25 mg PO BID [facility] Last Admin: 08/16/17 08:26 Dose: 25 mg Mineral Oil (Fleet Mineral Oil) [address] DAILYPRN PRN PRN Reason: Constipation Nitroglycerin (Nitrostat) 0.4 mg SL Q5MIN PRN PRN Reason: Chest Pain Ondansetron HCl (Zofran) 4 mg IVP Q6H PRN PRN Reason: Nausea/Vomiting Last Admin: 06/24/18 20:47 Dose: 4 mg Pregabalin (Lyrica) 300 mg PO HS [facility] Last Admin: 08/15/17 21:00 Dose: 300 mg Sodium Chloride (Flush - Normal Saline) 10 ml IVF Q12HR [facility] Last Admin: 08/16/17 08:26 Dose: 10 ml
[2017-08-16] MEDS ORDERED: Potassium Chloride 20 MEQ TAB PO SCH (12:45)
--- NOTE | 2017-08-16 14:53 | EKG ---
Test Reason : CHEST PAIN Blood Pressure : / mmHG Vent. Rate : 107 BPM Atrial Rate : 098 BPM P-R Int : 000 ms QRS Dur : 084 ms QT Int : 488 ms P-R-T Axes : 000 073 070 degrees QTc Int : 651 ms Accelerated Junctional rhythm with occasional Premature ventricular complexes Abnormal ECG Resolving ST change Biphasic T waves from #1/2 Confirmed by KYLEE RINCON ([id number]), magazine editor KAIDEN CATHERINE ([id number]) on 08/16/2017 2:53:47 PM Referred By: Confirmed By:KYLEE RINCON
--- NOTE | 2017-08-16 14:54 | EKG ---
Test Reason : REPEAT Blood Pressure : / mmHG Vent. Rate : 097 BPM Atrial Rate : 097 BPM P-R Int : 214 ms QRS Dur : 086 ms QT Int : 352 ms P-R-T Axes : 042 068 065 degrees QTc Int : 447 ms Sinus rhythm with 1st degree A-V block Cannot rule out Anterior infarct , age undetermined Abnormal ECG #3 Confirmed by KYLEE RINCON ([id number]), acquisitions editor KAIDEN CATHERINE ([id number]) on 08/16/2017 2:53:56 PM Referred By: APRIL RINCON Confirmed By:KYLEE RINCON
--- NOTE | 2017-08-16 15:11 | PRG ---
DATE OF SERVICE: 08/16/2017 SUBJECTIVE: This morning, he is complaining of pain. He is coughing. He says he is short of breath . OBJECTIVE: VITAL SIGNS: His sats are 90% on 2 liters, respiration rate 18, temperature 99, blood pressure 106/ 70. CHEST: Bilateral crackles. CARDIAC: Normal S1, S2. No gallops. ABDOMEN: Soft, no masses. LABORATORY DATA: White count 9000, H&H is 10 and 32, platelet count normal. Electrolytes are normal . IMPRESSION: Status post coronary artery bypass graft, respiratory failure, bibasilar atelectasis. PLAN: He is restarted on his neb treatments, continue. He is still on Pulmicort twice a day, which will continue. Baseline x-ray being ordered because of hypoxemia. We will follow.
[2017-08-16] MEDS: Acetaminophen 325 MG TAB PO PRN (18:33)
[2017-08-16] MEDS: Atorvastatin Calcium 40 MG TAB PO SCH (20:37)
[2017-08-16] MEDS: Enoxaparin Sodium 40 MG/0.4 ML SYRINGE SC SCH (20:37)
[2017-08-16] MEDS: Amitriptyline HCl 25 MG TAB PO SCH (20:37)
[2017-08-16] MEDS: Pregabalin 75 MG CAP PO SCH (20:38)
[2017-08-17 05:51] LABS: #Eosinphils 0.2 thou/uL (0.0-0.7); #Lymphocytes 1.8 thou/uL (1.20-3.40); #Neutrophils 6.7 thou/uL (1.40-6.50); %Basophils 0.5 % (0.0-1.0); %Eosinophils 2.3 % (0.0-10.0); %Lymphocytes 18.7 % (21.0-51.0); %Monocytes 9.9 % (0.0-10.0); %Neutrophils 68.7 % (42.0-75.0); Hemoglobin 10.6 g/dL (14.0-18.0); Mean Corpuscular HGB CONC 33.5 g/dL (32.0-36.0); Mean Corpuscular Hemoglobin 32.3 pg (27.0-31.0); Mean Corpuscular Volume 96.3 fL (78.0-98.0); Mean Platelet Volume 6.5 fL (7.4-10.4); Platelet Count 252 thou/uL (130-400); RBC Distribution Width 12.7 % (11.5-14.5); Red Blood Cell (RBC) Count 3.27 mill/uL (4.70-6.10); White Blood Cell (WBC) Count 9.7 thou/uL (4.8-10.8)
[2017-08-17 06:11] LABS: Anion Gap 11 mmol/L (10-20); BUN (Urea Nitrogen) 17 mg/dL (8.4-25.7); Calc. Creatinine Clearance 94 mL/min (70-130); Calcium 9.1 mg/dL (7.8-10.44); Carbon Dioxide 26 mmol/L (23-31); Chloride 101 mmol/L (98-107); Estimated GFR-MDRD 89; Glucose 142 mg/dL (80-115); Sodium 134 mmol/L (136-145)
[2017-08-17] MEDS: HYDROcodone/Acetaminophen 5/325 mg Tablet PO PRN ×2 (07:15→20:30)
[2017-08-17] MEDS: Budesonide 0.5 MG/2 ML NEB INH SCH ×2 (08:20→18:48)
[2017-08-17] MEDS ORDERED: Metolazone 5 MG TAB PO SCH (09:15)
[2017-08-17] MEDS: Metoprolol Tartrate 25 MG TAB PO SCH ×2 (09:22→20:28)
[2017-08-17] MEDS: Aspirin 325 mg Enteric Coated Tablet PO SCH (09:22)
[2017-08-17] MEDS: BEER 1 CAN PO SCH ×3 (09:22→17:50)
--- NOTE | 2017-08-17 09:29 | RAD ---
PORTABLE CHEST: Date: 08/17/17 HISTORY: Pneumonia follow-up. COMPARISON: 08/13/17. FINDINGS: Bilateral effusions obscure the CP angles. Left basilar infiltrate has improved since the prior exam, although there continues to be some patchy left basilar atelectasis and/or infiltrate. Lungs otherwi se are clear. IMPRESSION: Improvement in left basilar process. POS: NIC
[2017-08-17] MEDS: Insulin Regular 300 UNITS/3 ML VIAL SC PRN (12:31)
[2017-08-17] MEDS ORDERED: ISOVUE-370 76%-LOCM 1 ML ONE (13:34)
--- NOTE | 2017-08-17 13:52 | PRG ---
DATE OF SERVICE: 08/17/2017 SUBJECTIVE: This morning, he said he is better, less cough, less shortness of breath. OBJECTIVE: VITAL SIGNS: Sats are still low at 92% on 2 liters, pulse 107, temperature 98, blood pressure 112/63 . CHEST: Decreased breath sounds without wheezing. CARDIAC: Normal S1, S2, no gallops. ABDOMEN: Soft, no masses. LABORATORY DATA: White count is unremarkable. Electrolytes are normal. Blood sugar is 202. His est x-ray this morning shows a small left-sided pleural effusion. IMPRESSION: Status post coronary artery bypass graft, small pleural effusion with hypoxemia, deconditioning, coug h, bronchitis. PLAN: Awaiting placement. Continue neb treatment.
--- NOTE | 2017-08-17 13:56 | PDOC.PN ---
- Subjective Encounter Start Date: 08/17/17 Encounter Start Time: 07:20 Pt seen for followup re: sinus tachycardia. Denies chest pain, shortness of breath, fevers or chills. - Objective Resuscitation Status: Resuscitation Status FULL:Full Resuscitation MAR Reviewed: Yes Vital Signs & Weight: Vital Signs (12 hours) Temp Pulse Pulse Pulse Resp BP BP 08/17/17 12:29 98.2 F 95 18 08/17/17 08:30 117 H 109 H 98/55 L 98/53 L 08/17/17 08:22 08/17/17 08:20 107 H 18 08/17/17 07:58 98.2 F 95 18 08/17/17 07:55 98.8 F 108 H 18 08/17/17 04:00 98.2 F 103 H 20 BP Pulse Ox Pulse Ox Pulse Ox 08/17/17 12:29 111/67 94 L 08/17/17 08:30 95 91 L 08/17/17 08:22 90 L 08/17/17 08:20 08/17/17 07:58 92 L 08/17/17 07:55 112/63 92 L 08/17/17 04:00 120/76 92 L Weight Weight 175 lb 2 oz Most Recent Monitor Data Heart Rate from ECG 108 NIBP 105/86 NIBP BP-Mean 99 Respiration from ECG 24 SpO2 91 I&O: 08/16/17 08/17/17 08/18/17 06:59 06:59 06:59 Intake Total 1560 1140 Output Total 2000 600 Balance -440 540 Result Diagrams: 08/17/17 05:31 08/17/17 05:31 Additional Labs: Accuchecks 08/17/17 08/17/17 08/16/17 10:40 06:02 20:33 POC Glucose 200 H 136 H 180 H 08/16/17 16:42 POC Glucose 121 H EKG Reviewed by me: Yes (Tele: sinus tachycardia) Phys Exam - Physical Examination Constitutional: NAD HEENT: moist MMs Neck: supple Respiratory: clear to auscultation bilateral S1, S2, tachy, reg Neurological: moves all 4 limbs Psychiatric: normal affect Dx/Plan (1) Sinus tachycardia Code(s): R00.0 - TACHYCARDIA, UNSPECIFIED Status: Acute Comment: pt is also hypoxic, will r/o pulmonary embolism (2) NSTEMI (non-ST elevated myocardial infarction) Code(s): I21.4 - NON-ST ELEVATION (NSTEMI) MYOCARDIAL INFARCTION Status: Acute Comment: s/p CABG (3) S/P CABG (coronary artery bypass graft) Code(s): Z95.1 - PRESENCE OF AORTOCORONARY BYPASS GRAFT Status: Acute Comment: CV surgery following (4) DM2 (diabetes mellitus, type 2) Status: Chronic Comment: continue insulin sliding scale (5) HTN (hypertension) Code(s): I10 - ESSENTIAL (PRIMARY) HYPERTENSION Status: Chronic Comment: controlled (6) Obesity (BMI 30.0-34.9) Code(s): E66.9 - OBESITY, UNSPECIFIED Status: Chronic (7) Delirium Code(s): R41.0 - DISORIENTATION, UNSPECIFIED Status: Resolved Comment: resolved (8) Hypokalemia Code(s): E87.6 - HYPOKALEMIA Status: Resolved - Plan * . Review of Systems - Medications/Allergies Allergies/Adverse Reactions: Allergies Allergy/AdvReac Type Severity Reaction Status Date / Time No Known Allergies Allergy Verified 08/10/17 03:26 Medications: Current Medications Acetaminophen (Tylenol) 650 mg PO Q6H PRN PRN Reason: Headache/Fever or Pain Last Admin: 08/16/17 18:33 Dose: 650 mg Hydrocodone Bitart/Acetaminophen ([place] 5/325) 1 tab PO Q4H PRN PRN Reason: Moderate Pain (4-6) Last Admin: 08/17/17 07:15 Dose: 1 tab Hydrocodone Bitart/Acetaminophen ([place] 5/325) 2 tab PO Q4H PRN PRN Reason: Severe Pain (7-10) Last Admin: 08/13/17 12:57 Dose: 2 tab Al Hydroxide/Mg Hydroxide (Maalox) 30 ml PO Q4H PRN PRN Reason: Indigestion Albuterol/Ipratropium (Duoneb) 3 ml NEB [id number] PRN PRN Reason: SHORTNESS OF BREATH Albuterol/Ipratropium (Duoneb) 3 ml EZPAP [id number] [facility] Last Admin: 08/17/17 08:20 Dose: 3 ml Amitriptyline HCl (Elavil) 50 mg PO HS [facility] Last Admin: 08/16/17 20:37 Dose: 50 mg Artificial Tears (Tears Naturale) 1 drop EA EYE PRN PRN PRN Reason: Dry Eyes Aspirin (Ecotrin) 325 mg PO DAILY [facility] Last Admin: 08/17/17 09:22 Dose: 325 mg Atorvastatin Calcium (Lipitor) 40 mg PO HS [facility] Last Admin: 08/16/17 20:37 Dose: 40 mg Beer (Beer) 1 each PO TID-WM [facility] Last Admin: 08/17/17 12:35 Dose: Not Given Bisacodyl (Dulcolax) 10 mg PO Q12H PRN PRN Reason: Constipation Last Admin: 08/15/17 18:15 Dose: 10 mg Bisacodyl (Dulcolax) 10 mg [place] Q12H PRN PRN Reason: Constipation Budesonide (Pulmicort Neb Solution) 0.5 mg INH BID-RT [facility] Last Admin: 08/17/17 08:20 Dose: 0.5 mg Dextrose/Water (Dextrose 50%) 25 gm SLOW IVP PRN PRN PRN Reason: PER HYPOGLYCEMIC PROTOCOL Diazepam (Valium) 5 mg PO HS PRN PRN Reason: PAIN/INSOMNIA Last Admin: 08/13/17 21:20 Dose: 5 mg Diphenhydramine HCl (Benadryl) 25 mg PO Q6H PRN PRN Reason: Itching & Insomnia or Bryan Brayan Enoxaparin Sodium (Lovenox) 40 mg SC 2100 [facility] Last Admin: 08/16/17 20:37 Dose: 40 mg Glucagon (Glucagon) 1 mg SC PRN PRN PRN Reason: PER HYPOGLYCEMIC PROTOCOL Guaifenesin/Dextromethorphan (Robitussin Dm) 15 ml PO Q4H PRN PRN Reason: Cough Last Admin: 08/16/17 08:27 Dose: 15 ml Dextrose/Water (D5w) 1,000 mls @ 0 mls/hr IV INF PRN; As Directed PRN Reason: PRN HYPOGLYCEMIC PROTOCOL Insulin Human Regular (Humulin R) 0 units SC Q4H PRN; Protocol PRN Reason: POST OP SLIDING SCALE Last Admin: 08/17/17 12:31 Dose: 4 unit Lorazepam (Ativan) 0.5 mg SLOW IVP Q8H PRN PRN Reason: Anxiety/Agitation Metoprolol Tartrate (Lopressor) 25 mg PO BID [facility] Last Admin: 08/17/17 09:22 Dose: 25 mg Mineral Oil (Fleet Mineral Oil) 133 ml [place] DAILYPRN PRN PRN Reason: Constipation Nitroglycerin (Nitrostat) 0.4 mg SL Q5MIN PRN PRN Reason: Chest Pain Ondansetron HCl (Zofran) 4 mg IVP Q6H PRN PRN Reason: Nausea/Vomiting Last Admin: 08/10/17 20:47 Dose: 4 mg Pregabalin (Lyrica) 300 mg PO HS [facility] Last Admin: 08/16/17 20:38 Dose: 300 mg Sodium Chloride (Flush - Normal Saline) 10 ml IVF Q12HR [facility] Last Admin: 08/17/17 09:22 Dose: 10 ml
[2017-08-17] MEDS: Acetaminophen 325 MG TAB PO PRN (16:45)
--- NOTE | 2017-08-17 18:32 | CT ---
CT ANGIOGRAM CHEST: HISTORY: Recent cardiac bypass. Evaluate for pulmonary embolism. Sinus tachycardia and hypoxia. COMPARISON: 08/09/2017 TECHNIQUE: A CT angiogram of the chest is performed in the axial plane. Three-dimensional reformatted images ar e submitted for interpretation. FINDINGS: Stranding of the anterior mediastinal fat is presumed to represent postoperative change. There is a small amount of pericardial fluid. Heart size is normal. Bypass graft and coronary calcifications a re identified. The ascending thoracic aorta, the aortic arch, and the descending thoracic aorta have an overall normal course and caliber. The visualized upper solid organs are unremarkable. Small to moderate bilateral pleural effusions with adjacent consolidation due to lower lobe atelectas is or pneumonia. Additional linear opacities are noted in the superior segment of both lower lobes, likely representing scar/atelectasis. Adequate aeration of the upper lungs. The trachea and central bronchi are patent. No lytic or blastic lesions in the osseous structures. The proximal great vessels of the neck are grossly patent. Adequate contrast opacification of the pulmonary arterial system to the level of the segmental arteri es. No filling defect to suggest thromboembolism. IMPRESSION: 1. No evidence of pulmonary artery embolism to the level of the segmental arteries. 2. Bilateral pleural effusions with adjacent parenchymal changes, as described above. Correlate for pneumonia versus atelectasis. 3. Stranding of the anterior mediastinal/retrosternal region. Findings are presumed to be due to po st surgical change. POS: [facility]
[2017-08-17] MEDS: Enoxaparin Sodium 40 MG/0.4 ML SYRINGE SC SCH (20:28)
[2017-08-17] MEDS: Atorvastatin Calcium 40 MG TAB PO SCH (20:28)
[2017-08-17] MEDS: Pregabalin 75 MG CAP PO SCH (20:28)
[2017-08-17] MEDS: Amitriptyline HCl 25 MG TAB PO SCH (20:28)
[2017-08-18 05:54] LABS: Hemoglobin 11.3 g/dL (14.0-18.0); Platelet Count 303 thou/uL (130-400)
[2017-08-18] MEDS: Budesonide 0.5 MG/2 ML NEB INH SCH ×2 (06:15→18:40)
[2017-08-18] MEDS: Guaifenesin DM 100-10/5 ML UDCUP PO PRN ×2 (09:01→20:35)
[2017-08-18] MEDS: HYDROcodone/Acetaminophen 5/325 mg Tablet PO PRN ×2 (09:01→23:10)
[2017-08-18] MEDS: Metoprolol Tartrate 25 MG TAB PO SCH ×2 (09:01→20:37)
[2017-08-18] MEDS: Aspirin 325 mg Enteric Coated Tablet PO SCH (09:01)
[2017-08-18] MEDS: BEER 1 CAN PO SCH ×3 (09:02→17:21)
--- NOTE | 2017-08-18 10:22 | PRG ---
DATE OF SERVICE: 08/18/2017 This morning he is awake, alert, and responsive. He is doing quite well. Denies any difficulty leroy thing. CT of his chest was ordered. This shows small pleural effusion, but no PE was found. PHYSICAL EXAMINATION: VITAL SIGNS: His blood pressure is 120/60, sat 92, temperature 98. CHEST: Chest revealed decreased breath sounds, no wheezing. CARDIAC: Normal S1-S2. No gallops. ABDOMEN: Soft, no masses. IMPRESSION: 1. Respiratory failure. 2. Severe deconditioning. 3. Bilateral pleural effusion. 4. Status post coronary artery bypass graft. PLAN: We are awaiting placement. Continue neb treatments, supportive care. I will follow.
--- NOTE | 2017-08-18 14:41 | PDOC.PN ---
- Subjective Encounter Start Date: 08/18/17 Encounter Start Time: 07:40 Pt seen for followup re: NSTEMI. Denies chest pain, shortness of breath, fevers or chills. - Objective Resuscitation Status: Resuscitation Status FULL:Full Resuscitation MAR Reviewed: Yes Vital Signs & Weight: Vital Signs (12 hours) Temp Pulse Pulse Resp BP BP Pulse Ox 08/18/17 12:00 97.6 F 103 H 18 117/74 91 L 08/18/17 11:34 99 18 95 08/18/17 11:21 103 H 117/74 08/18/17 08:00 98.7 F 113 H 20 93 L 08/18/17 07:25 98.7 F 113 H 20 120/64 93 L 08/18/17 06:15 95 16 95 08/18/17 05:08 97.9 F 106 H 18 111/72 92 L Weight Weight 174 lb 2 oz Most Recent Monitor Data Heart Rate from ECG 108 NIBP 105/86 NIBP BP-Mean 99 Respiration from ECG 24 SpO2 91 I&O: 08/17/17 08/18/17 08/19/17 06:59 06:59 06:59 Intake Total 1140 1100 Output Total 600 1850 Balance 540 -750 Result Diagrams: 08/18/17 05:16 08/18/17 05:16 Additional Labs: Accuchecks 08/18/17 08/17/17 08/17/17 06:04 20:56 16:43 POC Glucose 145 H 168 H 122 H EKG Reviewed by me: Yes (Tele: sinus tachycardia) Phys Exam - Physical Examination Constitutional: NAD HEENT: moist MMs Neck: supple Respiratory: clear to auscultation bilateral S1, S2, tachy Gastrointestinal: soft Neurological: moves all 4 limbs Psychiatric: normal affect Dx/Plan (1) NSTEMI (non-ST elevated myocardial infarction) Code(s): I21.4 - NON-ST ELEVATION (NSTEMI) MYOCARDIAL INFARCTION Status: Acute Comment: s/p CABG (2) Sinus tachycardia Code(s): R00.0 - TACHYCARDIA, UNSPECIFIED Status: Acute Comment: no evidence of pulmonary embolism (3) S/P CABG (coronary artery bypass graft) Code(s): Z95.1 - PRESENCE OF AORTOCORONARY BYPASS GRAFT Status: Acute Comment: CV surgery following (4) DM2 (diabetes mellitus, type 2) Status: Chronic Comment: continue accuchecks and insulin sliding scale (5) HTN (hypertension) Code(s): I10 - ESSENTIAL (PRIMARY) HYPERTENSION Status: Chronic Comment: controlled (6) Obesity (BMI 30.0-34.9) Code(s): E66.9 - OBESITY, UNSPECIFIED Status: Chronic (7) Delirium Code(s): R41.0 - DISORIENTATION, UNSPECIFIED Status: Resolved Comment: resolved - Plan * . Review of Systems - Review of Systems Respiratory: negative: Cough, Shortness of Breath, Hemoptysis, Pleuritic Pain, Wheezing Cardiovascular: negative: chest pain, palpitations, orthopnea, paroxysmal nocturnal dyspnea, edema, light headedness - Medications/Allergies Allergies/Adverse Reactions: Allergies Allergy/AdvReac Type Severity Reaction Status Date / Time No Known Allergies Allergy Verified 08/10/17 03:26 Medications: Current Medications Acetaminophen (Tylenol) 650 mg PO Q6H PRN PRN Reason: Headache/Fever or Pain Last Admin: 08/17/17 16:45 Dose: 650 mg Hydrocodone Bitart/Acetaminophen ([place] 5/325) 1 tab PO Q4H PRN PRN Reason: Moderate Pain (4-6) Last Admin: 08/18/17 09:01 Dose: 1 tab Hydrocodone Bitart/Acetaminophen ([place] 5/325) 2 tab PO Q4H PRN PRN Reason: Severe Pain (7-10) Last Admin: 08/13/17 12:57 Dose: 2 tab Al Hydroxide/Mg Hydroxide (Maalox) 30 ml PO Q4H PRN PRN Reason: Indigestion Albuterol/Ipratropium (Duoneb) 3 ml NEB [id number] PRN PRN Reason: SHORTNESS OF BREATH Albuterol/Ipratropium (Duoneb) 3 ml EZPAP [id number] [facility] Last Admin: 08/18/17 11:34 Dose: 3 ml Amitriptyline HCl (Elavil) 50 mg PO HS [facility] Last Admin: 08/17/17 20:28 Dose: 50 mg Artificial Tears (Tears Naturale) 1 drop EA EYE PRN PRN PRN Reason: Dry Eyes Aspirin (Ecotrin) 325 mg PO DAILY [facility] Last Admin: 08/18/17 09:01 Dose: 325 mg Atorvastatin Calcium (Lipitor) 40 mg PO HS [facility] Last Admin: 08/17/17 20:28 Dose: 40 mg Beer (Beer) 1 each PO TID-WM [facility] Last Admin: 08/18/17 12:03 Dose: Not Given Bisacodyl (Dulcolax) 10 mg PO Q12H PRN PRN Reason: Constipation Last Admin: 08/15/17 18:15 Dose: 10 mg Bisacodyl (Dulcolax) 10 mg [place] Q12H PRN PRN Reason: Constipation Budesonide (Pulmicort Neb Solution) 0.5 mg INH BID-RT [facility] Last Admin: 08/18/17 06:15 Dose: 0.5 mg Dextrose/Water (Dextrose 50%) 25 gm SLOW IVP PRN PRN PRN Reason: PER HYPOGLYCEMIC PROTOCOL Diazepam (Valium) 5 mg PO HS PRN PRN Reason: PAIN/INSOMNIA Last Admin: 08/13/17 21:20 Dose: 5 mg Diphenhydramine HCl (Benadryl) 25 mg PO Q6H PRN PRN Reason: Itching & Insomnia or Bryan Brayan Enoxaparin Sodium (Lovenox) 40 mg SC 2100 [facility] Last Admin: 08/17/17 20:28 Dose: 40 mg Glucagon (Glucagon) 1 mg [place] PRN PRN PRN Reason: PER HYPOGLYCEMIC PROTOCOL Guaifenesin/Dextromethorphan (Robitussin Dm) 15 ml PO Q4H PRN PRN Reason: Cough Last Admin: 08/18/17 09:01 Dose: 15 ml Dextrose/Water (D5w) 1,000 mls @ 0 mls/hr IV INF PRN; As Directed PRN Reason: PRN HYPOGLYCEMIC PROTOCOL Insulin Human Regular (Humulin R) 0 units SC Q4H PRN; Protocol PRN Reason: POST OP SLIDING SCALE Last Admin: 08/17/17 12:31 Dose: 4 unit Lorazepam (Ativan) 0.5 mg SLOW IVP Q8H PRN PRN Reason: Anxiety/Agitation Metoprolol Tartrate (Lopressor) 25 mg PO BID [facility] Last Admin: 08/18/17 09:01 Dose: 25 mg Mineral Oil (Fleet Mineral Oil) 133 ml [place] DAILYPRN PRN PRN Reason: Constipation Nitroglycerin (Nitrostat) 0.4 mg SL Q5MIN PRN PRN Reason: Chest Pain Ondansetron HCl (Zofran) 4 mg IVP Q6H PRN PRN Reason: Nausea/Vomiting Last Admin: 08/10/17 20:47 Dose: 4 mg Pregabalin (Lyrica) 300 mg PO HS [facility] Last Admin: 08/17/17 20:28 Dose: 300 mg Sodium Chloride (Flush - Normal Saline) 10 ml IVF Q12HR [facility] Last Admin: 08/18/17 09:01 Dose: 10 ml
[2017-08-18 15:22] LABS: #Eosinphils 0.2 thou/uL (0.0-0.7); #Lymphocytes 1.8 thou/uL (1.20-3.40); #Monocytes 0.9 thou/uL (0.11-0.59); %Basophils 0.3 % (0.0-1.0); %Eosinophils 2.6 % (0.0-10.0); %Lymphocytes 22.6 % (21.0-51.0); %Monocytes 11.7 % (0.0-10.0); %Neutrophils 62.9 % (42.0-75.0); Hemoglobin 11.4 g/dL (14.0-18.0); Mean Corpuscular HGB CONC 34.7 g/dL (32.0-36.0); Mean Corpuscular Hemoglobin 32.9 pg (27.0-31.0); Mean Platelet Volume 6.6 fL (7.4-10.4); Platelet Count 298 thou/uL (130-400); RBC Distribution Width 12.7 % (11.5-14.5); Red Blood Cell (RBC) Count 3.45 mill/uL (4.70-6.10)
[2017-08-18 15:40] LABS: Anion Gap 12 mmol/L (10-20); BUN (Urea Nitrogen) 18 mg/dL (8.4-25.7); Calc. Creatinine Clearance 89 mL/min (70-130); Calcium 9.3 mg/dL (7.8-10.44); Carbon Dioxide 24 mmol/L (23-31); Chloride 100 mmol/L (98-107); Estimated GFR-MDRD 84; Glucose 144 mg/dL (80-115); Sodium 132 mmol/L (136-145)
[2017-08-18] MEDS ORDERED: Sodium Chloride 0.9% 20 ML ONE (19:57)
[2017-08-18] MEDS: Pregabalin 75 MG CAP PO SCH (20:36)
[2017-08-18] MEDS: Enoxaparin Sodium 40 MG/0.4 ML SYRINGE SC SCH (20:37)
[2017-08-18] MEDS: Atorvastatin Calcium 40 MG TAB PO SCH (20:37)
[2017-08-18] MEDS: Amitriptyline HCl 25 MG TAB PO SCH (20:37)
[2017-08-18] MEDS: Insulin Regular 300 UNITS/3 ML VIAL SC PRN (23:08)
[2017-08-19] MEDS: Budesonide 0.5 MG/2 ML NEB INH SCH ×2 (06:09→18:47)
--- NOTE | 2017-08-19 09:31 | PRG ---
DATE OF SERVICE: 08/19/2017 He looks much better this morning. He is less short of breath. No longer confused. PHYSICAL EXAMINATION: VITAL SIGNS: Sats are better, 94% on room air, respiration 12, pulse 101, temperature 98, blood pres sure 160/55. CHEST: Chest revealed decreased breath sounds, no wheezing. CARDIAC: Normal S1, S2, no gallops. ABDOMEN: Soft, no masses. IMPRESSION: 1. Status post coronary artery bypass graft. 2. Respiratory failure. 3. Hypoxemia. 4. Encephalopathy, much improved. PLAN: He is going to rehab in the next day or two. We will follow while in the hospital.
[2017-08-19] MEDS: BEER 1 CAN PO SCH ×3 (09:45→17:25)
[2017-08-19] MEDS: Metoprolol Tartrate 25 MG TAB PO SCH ×2 (09:45→20:17)
[2017-08-19] MEDS: Aspirin 325 mg Enteric Coated Tablet PO SCH (09:45)
--- NOTE | 2017-08-19 14:42 | PDOC.PN ---
- Subjective Encounter Start Date: 08/19/17 Encounter Start Time: 07:20 Pt seen for followup re: NSTEMI. Denies chest pain, shortness of breath, fevers or chills. - Objective Resuscitation Status: Resuscitation Status FULL:Full Resuscitation MAR Reviewed: Yes Vital Signs & Weight: Vital Signs (12 hours) Temp Pulse Pulse Resp BP BP BP 08/19/17 11:30 99 14 08/19/17 11:24 98.4 F 97 16 102/62 08/19/17 10:49 114 H 105/73 08/19/17 09:39 98.6 F 112 H 19 119/75 08/19/17 06:09 101 H 12 08/19/17 04:00 98.2 F 109 H 16 116/55 L Pulse Ox 08/19/17 11:30 94 L 08/19/17 11:24 100 08/19/17 10:49 08/19/17 09:39 95 08/19/17 06:09 94 L 08/19/17 04:00 93 L Weight Admit Weight 193 lb 4.8 oz Weight 169 lb 9.6 oz Most Recent Monitor Data Heart Rate from ECG 108 NIBP 105/86 NIBP BP-Mean 99 Respiration from ECG 24 SpO2 91 I&O: 08/18/17 08/19/17 08/20/17 06:59 06:59 06:59 Intake Total 1100 1550 Output Total 1850 1200 Balance -750 350 Result Diagrams: 08/18/17 15:07 08/18/17 15:07 Additional Labs: Accuchecks 08/19/17 08/18/17 08/18/17 10:50 20:55 17:56 POC Glucose 146 H 185 H 164 H 08/18/17 11:43 POC Glucose 202 H EKG Reviewed by me: Yes (Tele: sinus tachycardia) Phys Exam - Physical Examination Constitutional: NAD HEENT: moist MMs Neck: supple Respiratory: clear to auscultation bilateral Cardiovascular: RRR Gastrointestinal: soft Neurological: moves all 4 limbs Psychiatric: normal affect, A&O x 3 Dx/Plan (1) NSTEMI (non-ST elevated myocardial infarction) Code(s): I21.4 - NON-ST ELEVATION (NSTEMI) MYOCARDIAL INFARCTION Status: Acute Comment: s/p CABG, awaiting Rehab bed (2) Sinus tachycardia Code(s): R00.0 - TACHYCARDIA, UNSPECIFIED Status: Acute Comment: no evidence of pulmonary embolism, TSH is normal (3) S/P CABG (coronary artery bypass graft) Code(s): Z95.1 - PRESENCE OF AORTOCORONARY BYPASS GRAFT Status: Acute Comment: CV surgery following (4) DM2 (diabetes mellitus, type 2) Status: Chronic Comment: continue insulin sliding scale (5) HTN (hypertension) Code(s): I10 - ESSENTIAL (PRIMARY) HYPERTENSION Status: Chronic Comment: controlled (6) Obesity (BMI 30.0-34.9) Code(s): E66.9 - OBESITY, UNSPECIFIED Status: Chronic (7) Delirium Code(s): R41.0 - DISORIENTATION, UNSPECIFIED Status: Resolved Comment: resolved - Plan * . Review of Systems - Review of Systems Constitutional: negative: fever, chills, sweats, weakness, malaise Cardiovascular: negative: chest pain, palpitations, orthopnea, paroxysmal nocturnal dyspnea, edema, light headedness Musculoskeletal: negative: Neck Pain, Shoulder Pain, Arm Pain, Back Pain, Hand Pain, Leg Pain, Foot Pain - Medications/Allergies Allergies/Adverse Reactions: Allergies Allergy/AdvReac Type Severity Reaction Status Date / Time No Known Allergies Allergy Verified 08/10/17 03:26 Medications: Current Medications Acetaminophen (Tylenol) 650 mg PO Q6H PRN PRN Reason: Headache/Fever or Pain Last Admin: 08/17/17 16:45 Dose: 650 mg Hydrocodone Bitart/Acetaminophen ([place] 5/325) 1 tab PO Q4H PRN PRN Reason: Moderate Pain (4-6) Last Admin: 08/18/17 23:10 Dose: 1 tab Hydrocodone Bitart/Acetaminophen ([place] 5/325) 2 tab PO Q4H PRN PRN Reason: Severe Pain (7-10) Last Admin: 08/13/17 12:57 Dose: 2 tab Al Hydroxide/Mg Hydroxide (Maalox) 30 ml PO Q4H PRN PRN Reason: Indigestion Albuterol/Ipratropium (Duoneb) 3 ml NEB [id number] PRN PRN Reason: SHORTNESS OF BREATH Albuterol/Ipratropium (Duoneb) 3 ml EZPAP [id number] [facility] Last Admin: 08/19/17 11:30 Dose: 3 ml Amitriptyline HCl (Elavil) 50 mg PO HS [facility] Last Admin: 08/18/17 20:37 Dose: 50 mg Artificial Tears (Tears Naturale) 1 drop EA EYE PRN PRN PRN Reason: Dry Eyes Aspirin (Ecotrin) 325 mg PO DAILY [facility] Last Admin: 08/19/17 09:45 Dose: 325 mg Atorvastatin Calcium (Lipitor) 40 mg PO HS [facility] Last Admin: 08/18/17 20:37 Dose: 40 mg Beer (Beer) 1 each PO TID-WM [facility] Last Admin: 08/19/17 11:27 Dose: Not Given Bisacodyl (Dulcolax) 10 mg PO Q12H PRN PRN Reason: Constipation Last Admin: 08/15/17 18:15 Dose: 10 mg Bisacodyl (Dulcolax) 10 mg [place] Q12H PRN PRN Reason: Constipation Budesonide (Pulmicort Neb Solution) 0.5 mg INH BID-RT [facility] Last Admin: 08/19/17 06:09 Dose: 0.5 mg Dextrose/Water (Dextrose 50%) 25 gm SLOW IVP PRN PRN PRN Reason: PER HYPOGLYCEMIC PROTOCOL Diazepam (Valium) 5 mg PO HS PRN PRN Reason: PAIN/INSOMNIA Last Admin: 08/13/17 21:20 Dose: 5 mg Diphenhydramine HCl (Benadryl) 25 mg PO Q6H PRN PRN Reason: Itching & Insomnia or Bryan Brayan Enoxaparin Sodium (Lovenox) 40 mg SC 2100 [facility] Last Admin: 08/18/17 20:37 Dose: 40 mg Glucagon (Glucagon) 1 mg SC PRN PRN PRN Reason: PER HYPOGLYCEMIC PROTOCOL Guaifenesin/Dextromethorphan (Robitussin Dm) 15 ml PO Q4H PRN PRN Reason: Cough Last Admin: 08/18/17 20:35 Dose: 15 ml Dextrose/Water (D5w) 1,000 mls @ 0 mls/hr IV INF PRN; As Directed PRN Reason: PRN HYPOGLYCEMIC PROTOCOL Insulin Human Regular (Humulin R) 0 units [place] Q4H PRN; Protocol PRN Reason: POST OP SLIDING SCALE Last Admin: 08/18/17 23:08 Dose: 4 unit Lorazepam (Ativan) 0.5 mg SLOW IVP Q8H PRN PRN Reason: Anxiety/Agitation Metoprolol Tartrate (Lopressor) 25 mg PO BID [facility] Last Admin: 08/19/17 09:45 Dose: 25 mg Mineral Oil (Fleet Mineral Oil) 133 ml [place] DAILYPRN PRN PRN Reason: Constipation Nitroglycerin (Nitrostat) 0.4 mg SL Q5MIN PRN PRN Reason: Chest Pain Ondansetron HCl (Zofran) 4 mg IVP Q6H PRN PRN Reason: Nausea/Vomiting Last Admin: 08/10/17 20:47 Dose: 4 mg Pregabalin (Lyrica) 300 mg PO HS [facility] Last Admin: 08/18/17 20:36 Dose: 300 mg Sodium Chloride (Flush - Normal Saline) 10 ml IVF Q12HR [facility] Last Admin: 08/19/17 09:46 Dose: 10 ml Sodium Chloride (Flush - Normal Saline) 10 ml IVF PRN PRN PRN Reason: Saline Flush
[2017-08-19] MEDS: HYDROcodone/Acetaminophen 5/325 mg Tablet PO PRN (20:17)
[2017-08-19] MEDS: Atorvastatin Calcium 40 MG TAB PO SCH (20:17)
[2017-08-19] MEDS: Amitriptyline HCl 25 MG TAB PO SCH (20:17)
[2017-08-19] MEDS: Enoxaparin Sodium 40 MG/0.4 ML SYRINGE SC SCH (20:18)
[2017-08-19] MEDS: Pregabalin 75 MG CAP PO SCH (20:41)
[2017-08-19] MEDS: Mag-Al 1200 mg/1200 mg/30 ML UDCUP PO PRN (22:34)
[2017-08-20] MEDS: Budesonide 0.5 MG/2 ML NEB INH SCH ×2 (05:44→19:00)
[2017-08-20] MEDS: Aspirin 325 mg Enteric Coated Tablet PO SCH (08:29)
[2017-08-20] MEDS: Metoprolol Tartrate 25 MG TAB PO SCH ×2 (08:29→20:52)
[2017-08-20] MEDS: BEER 1 CAN PO SCH ×3 (08:29→17:13)
--- NOTE | 2017-08-20 14:13 | PDOC.PN ---
- Subjective Encounter Start Date: 08/20/17 Encounter Start Time: 08:20 Pt seen for followup re: NSTEMI, Denies chest pain, shortness of breath, fevers or chills. - Objective Resuscitation Status: Resuscitation Status FULL:Full Resuscitation MAR Reviewed: Yes Vital Signs & Weight: Vital Signs (12 hours) Temp Pulse Pulse Pulse Resp BP BP 08/20/17 13:18 113 H 117/62 08/20/17 11:26 100 14 08/20/17 11:21 98.7 F 98 18 08/20/17 10:42 75 80 123/68 125/70 08/20/17 08:26 08/20/17 08:21 97.7 F 108 H 14 08/20/17 08:20 97.7 F 108 H 14 08/20/17 08:12 112 H 107/66 08/20/17 05:44 99 16 08/20/17 04:48 97.2 F L 102 H 19 BP BP Pulse Ox Pulse Ox 08/20/17 13:18 94 L 08/20/17 11:26 94 L 08/20/17 11:21 105/61 97 08/20/17 10:42 08/20/17 08:26 107/66 08/20/17 08:21 100/56 L 100 08/20/17 08:20 100 08/20/17 08:12 100 08/20/17 05:44 95 08/20/17 04:48 113/61 93 L Weight Admit Weight 193 lb 4.8 oz Weight 167 lb 9.6 oz Most Recent Monitor Data Heart Rate from ECG 108 NIBP 105/86 NIBP BP-Mean 99 Respiration from ECG 24 SpO2 91 I&O: 08/19/17 08/20/17 08/21/17 06:59 06:59 06:59 Intake Total 1550 760 240 Output Total 1200 675 Balance 350 85 240 Result Diagrams: 08/18/17 15:07 08/18/17 15:07 Additional Labs: Accuchecks 08/20/17 08/20/17 08/19/17 10:49 05:55 20:59 POC Glucose 146 H 153 H 158 H 08/19/17 08/19/17 17:33 06:13 POC Glucose 137 H 134 H EKG Reviewed by me: Yes (Tele: NSR) Phys Exam - Physical Examination Constitutional: NAD HEENT: moist MMs Neck: no JVD Respiratory: clear to auscultation bilateral Cardiovascular: RRR Gastrointestinal: soft, non-tender Neurological: moves all 4 limbs Psychiatric: normal affect Dx/Plan (1) NSTEMI (non-ST elevated myocardial infarction) Code(s): I21.4 - NON-ST ELEVATION (NSTEMI) MYOCARDIAL INFARCTION Status: Acute Comment: awaiting SNU bed after CABG (2) S/P CABG (coronary artery bypass graft) Code(s): Z95.1 - PRESENCE OF AORTOCORONARY BYPASS GRAFT Status: Acute Comment: CV surgery following (3) DM2 (diabetes mellitus, type 2) Status: Chronic Comment: continue insulin sliding scale (4) HTN (hypertension) Code(s): I10 - ESSENTIAL (PRIMARY) HYPERTENSION Status: Chronic Comment: controlled (5) Obesity (BMI 30.0-34.9) Code(s): E66.9 - OBESITY, UNSPECIFIED Status: Chronic (6) Delirium Code(s): R41.0 - DISORIENTATION, UNSPECIFIED Status: Resolved Comment: resolved (7) Sinus tachycardia Code(s): R00.0 - TACHYCARDIA, UNSPECIFIED Status: Resolved - Plan * . Review of Systems - Review of Systems Cardiovascular: negative: chest pain, palpitations, orthopnea, paroxysmal nocturnal dyspnea, edema, light headedness Gastrointestinal: negative: Nausea, Vomiting, Abdominal Pain, Diarrhea, Constipation, Melena, Hematochezia - Medications/Allergies Allergies/Adverse Reactions: Allergies Allergy/AdvReac Type Severity Reaction Status Date / Time No Known Allergies Allergy Verified 08/10/17 03:26 Medications: Current Medications Acetaminophen (Tylenol) 650 mg PO Q6H PRN PRN Reason: Headache/Fever or Pain Last Admin: 08/17/17 16:45 Dose: 650 mg Hydrocodone Bitart/Acetaminophen ([place] 5/325) 1 tab PO Q4H PRN PRN Reason: Moderate Pain (4-6) Last Admin: 08/19/17 20:17 Dose: 1 tab Hydrocodone Bitart/Acetaminophen ([place] 5/325) 2 tab PO Q4H PRN PRN Reason: Severe Pain (7-10) Last Admin: 08/13/17 12:57 Dose: 2 tab Al Hydroxide/Mg Hydroxide (Maalox) 30 ml PO Q4H PRN PRN Reason: Indigestion Last Admin: 08/19/17 22:34 Dose: 30 ml Albuterol/Ipratropium (Duoneb) 3 ml NEB [id number] PRN PRN Reason: SHORTNESS OF BREATH Albuterol/Ipratropium (Duoneb) 3 ml EZPAP [id number] [facility] Last Admin: 08/20/17 11:26 Dose: 3 ml Amitriptyline HCl (Elavil) 50 mg PO HS [facility] Last Admin: 08/19/17 20:17 Dose: 50 mg Artificial Tears (Tears Naturale) 1 drop EA EYE PRN PRN PRN Reason: Dry Eyes Aspirin (Ecotrin) 325 mg PO DAILY [facility] Last Admin: 08/20/17 08:29 Dose: 325 mg Atorvastatin Calcium (Lipitor) 40 mg PO HS [facility] Last Admin: 08/19/17 20:17 Dose: 40 mg Beer (Beer) 1 each PO TID-WM [facility] Last Admin: 08/20/17 12:47 Dose: Not Given Bisacodyl (Dulcolax) 10 mg PO Q12H PRN PRN Reason: Constipation Last Admin: 08/15/17 18:15 Dose: 10 mg Bisacodyl (Dulcolax) 10 mg [place] Q12H PRN PRN Reason: Constipation Budesonide (Pulmicort Neb Solution) 0.5 mg INH BID-RT [facility] Last Admin: 08/20/17 05:44 Dose: 0.5 mg Dextrose/Water (Dextrose 50%) 25 gm SLOW IVP PRN PRN PRN Reason: PER HYPOGLYCEMIC PROTOCOL Diphenhydramine HCl (Benadryl) 25 mg PO Q6H PRN PRN Reason: Itching & Insomnia or Bryan Brayan Enoxaparin Sodium (Lovenox) 40 mg SC 2100 [facility] Last Admin: 08/19/17 20:18 Dose: 40 mg Glucagon (Glucagon) 1 mg SC PRN PRN PRN Reason: PER HYPOGLYCEMIC PROTOCOL Guaifenesin/Dextromethorphan (Robitussin Dm) 15 ml PO Q4H PRN PRN Reason: Cough Last Admin: 08/18/17 20:35 Dose: 15 ml Dextrose/Water (D5w) 1,000 mls @ 0 mls/hr IV INF PRN; As Directed PRN Reason: PRN HYPOGLYCEMIC PROTOCOL Insulin Human Regular (Humulin R) 0 units SC Q4H PRN; Protocol PRN Reason: POST OP SLIDING SCALE Last Admin: 08/18/17 23:08 Dose: 4 unit Lorazepam (Ativan) 0.5 mg SLOW IVP Q8H PRN PRN Reason: Anxiety/Agitation Metoprolol Tartrate (Lopressor) 25 mg PO BID [facility] Last Admin: 08/20/17 08:29 Dose: 25 mg Mineral Oil (Fleet Mineral Oil) 133 ml [place] DAILYPRN PRN PRN Reason: Constipation Nitroglycerin (Nitrostat) 0.4 mg SL Q5MIN PRN PRN Reason: Chest Pain Ondansetron HCl (Zofran) 4 mg IVP Q6H PRN PRN Reason: Nausea/Vomiting Last Admin: 08/10/17 20:47 Dose: 4 mg Pregabalin (Lyrica) 300 mg PO HS [facility] Last Admin: 08/19/17 20:41 Dose: 300 mg Sodium Chloride (Flush - Normal Saline) 10 ml IVF Q12HR [facility] Last Admin: 08/20/17 08:29 Dose: 10 ml Sodium Chloride (Flush - Normal Saline) 10 ml IVF PRN PRN PRN Reason: Saline Flush
--- NOTE | 2017-08-20 16:43 | CT ---
CT HEAD WITHOUT CONTRAST: 08/20/17 Multiple axial tomograms obtained through the head without IV enhancement. INDICATIONS: Fall with injury to head. On blood thinners. The ventricles are mildly prominent. There is no evidence of mass, edema or infarct. No evidence of h emorrhage. Sinuses and mastoids are well aerated. IMPRESSION: Mild ventriculomegaly, unchanged from the recent exam from 07/28/17. No acute process. POS: H
[2017-08-20] MEDS: Atorvastatin Calcium 40 MG TAB PO SCH (20:51)
[2017-08-20] MEDS: Acetaminophen 325 MG TAB PO PRN (20:51)
[2017-08-20] MEDS: Amitriptyline HCl 25 MG TAB PO SCH (20:51)
[2017-08-20] MEDS: Pregabalin 75 MG CAP PO SCH (20:52)
[2017-08-20] MEDS: Enoxaparin Sodium 40 MG/0.4 ML SYRINGE SC SCH (20:52)
--- NOTE | 2017-08-20 23:08 | HP ---
DATE OF SERVICE: 08/20/2017 SERVICE: Pulmonary Medicine. INTERVAL HISTORY: The patient is breathing really comfortably. He has been weaned on room air. Denies any chest pain, nausea, vomiting, fevers or chills. When he coughs, he does have some discomfort. That being said, he is learning to manage that. He brings up a little bit of sputum with cough. He is much improved compared to where it was previously and does not feel like he has any more to liberate. PHYSICAL EXAMINATION: VITAL SIGNS: Afebrile, pulse 103, blood pressure 120/76, respirations 18, saturation 99% on room air. GENERAL: The patient is awake, alert, no apparent distress. LUNGS: Decent air entry. There is a slightly prolonged expiratory phase with minimal wheezing. No rhonchi or crackles are appreciated. HEART: Normal rate, regular. ABDOMEN: Soft, nontender, nondistended. Bowel sounds are positive. MUSCULOSKELETAL: No cyanosis or clubbing. There is no pitting in the bilateral lower extremities. NEUROLOGIC: Grossly nonfocal. IMAGING: CT of brain demonstrates mild ventriculomegaly, unchanged since the exam on 07/28/2017 without acute process. ASSESSMENT: 1. Acute hypoxic respiratory failure, resolved. 2. Coronary artery disease, status post coronary artery bypass graft. 3. Morbid obesity. DISCUSSION AND PLAN: I will change him over to p.r.n. nebulized medications. From a purely respiratory perspective, he is stable for transition out of the hospital. Pulmonary Critical Care will continue to follow along if he remains in house. TINO
[2017-08-21] MEDS: Budesonide 0.5 MG/2 ML NEB INH SCH ×2 (05:44→18:43)
[2017-08-21] MEDS: BEER 1 CAN PO SCH ×3 (08:00→17:56)
[2017-08-21] MEDS: Bisacodyl 5 MG TAB PO PRN (09:38)
[2017-08-21] MEDS: Aspirin 325 mg Enteric Coated Tablet PO SCH (09:39)
[2017-08-21] MEDS: Metoprolol Tartrate 25 MG TAB PO SCH ×2 (09:39→20:07)
[2017-08-21] MEDS: Acetaminophen 325 MG TAB PO PRN (09:44)
--- NOTE | 2017-08-21 10:24 | PRG ---
DATE OF SERVICE: 08/21/2017 SUBJECTIVE: This morning, awaiting placement. OBJECTIVE: VITAL SIGNS: His sats are 94 on room air, respiration 16, temperature 97, blood pressure 105/65. CHEST: Decreased breath sounds without any wheezing. CARDIAC: Normal S1, S2, no gallops. ABDOMEN: Soft, no masses. IMPRESSION: Respiratory failure, coronary artery bypass graft, cough, much improved. PLAN: He can be discharged home anytime. Pulmonary will follow at a distance.
[2017-08-21] MEDS: Mag-Al 1200 mg/1200 mg/30 ML UDCUP PO PRN ×2 (11:15→18:09)
[2017-08-21 12:54] VITALS: BMI 26.6
[2017-08-21] MEDS: Ondansetron HCl/PF 4 MG/2 ML Vial IVP PRN (18:10)
[2017-08-21] MEDS: Amitriptyline HCl 25 MG TAB PO SCH (20:07)
[2017-08-21] MEDS: Atorvastatin Calcium 40 MG TAB PO SCH (20:07)
[2017-08-21] MEDS: Pregabalin 75 MG CAP PO SCH (20:08)
[2017-08-21] MEDS: Enoxaparin Sodium 40 MG/0.4 ML SYRINGE SC SCH (20:10)
--- NOTE | 2017-08-21 20:42 | PDOC.PN ---
- Subjective Encounter Start Date: 08/21/17 Encounter Start Time: 11:00 Patient seen and examined for NSTEMI s/p CABG. No new complaints. No overnight events - Objective Resuscitation Status: Resuscitation Status FULL:Full Resuscitation MAR Reviewed: Yes Vital Signs & Weight: Vital Signs (12 hours) Temp Pulse Pulse Pulse Resp BP BP 08/21/17 19:20 98.4 F 100 18 08/21/17 18:43 08/21/17 16:55 98.7 F 101 H 18 08/21/17 12:27 98.7 F 91 16 08/21/17 10:09 116 H 112 H 116/78 114/66 BP BP Pulse Ox Pulse Ox Pulse Ox 08/21/17 19:20 119/71 93 L 08/21/17 18:43 95 08/21/17 16:55 119/72 95 08/21/17 12:27 100/60 94 L 08/21/17 10:09 96 94 L Weight Admit Weight 193 lb 4.8 oz Weight 165 lb 6.4 oz Most Recent Monitor Data Heart Rate from ECG 108 NIBP 105/86 NIBP BP-Mean 99 Respiration from ECG 24 SpO2 91 I&O: 08/20/17 08/21/17 08/22/17 06:59 06:59 06:59 Intake Total 760 1680 1240 Output Total 675 840 Balance 85 1680 400 Result Diagrams: 08/22/17 04:07 08/22/17 04:07 Additional Labs: Accuchecks 08/21/17 08/21/17 08/21/17 16:30 10:47 05:54 POC Glucose 169 H 216 H 150 H 08/20/17 20:44 POC Glucose 205 H EKG Reviewed by me: Yes (Tele SR) Phys Exam - Physical Examination Constitutional: NAD Respiratory: no wheezing, no rhonchi Cardiovascular: RRR, no rub Gastrointestinal: soft, non-tender, positive bowel sounds Musculoskeletal: no edema Neurological: moves all 4 limbs Dx/Plan (1) NSTEMI (non-ST elevated myocardial infarction) Code(s): I21.4 - NON-ST ELEVATION (NSTEMI) MYOCARDIAL INFARCTION Status: Acute Plan: Cont ASA, Beta blockers, Statins, Check AM labs Comment: No ACEI/ARB due to ALVA this admission (2) S/P CABG (coronary artery bypass graft) Code(s): Z95.1 - PRESENCE OF AORTOCORONARY BYPASS GRAFT Status: Acute Comment: Doing well (3) HTN (hypertension) Code(s): I10 - ESSENTIAL (PRIMARY) HYPERTENSION Status: Chronic Plan: Cont current antiHTN meds Comment: controlled (4) DM2 (diabetes mellitus, type 2) Status: Chronic Qualifiers: Chronic kidney disease stage: stage 2 (mild) Plan: Cont sliding scale Comment: continue insulin sliding scale (5) GERD (gastroesophageal reflux disease) Code(s): K21.9 - GASTRO-ESOPHAGEAL REFLUX DISEASE WITHOUT ESOPHAGITIS Status: Chronic (6) Obesity (BMI 30.0-34.9) Code(s): E66.9 - OBESITY, UNSPECIFIED Status: Chronic (7) Chronic alcohol use Code(s): Z72.89 - OTHER PROBLEMS RELATED TO LIFESTYLE Status: Chronic - Plan DVT proph w/SCDs Await placement -: AM labs Review of Systems - Review of Systems Respiratory: negative: Cough, Dry, Shortness of Breath, Hemoptysis, SOB with Excertion, Pleuritic Pain, Sputum, Wheezing Cardiovascular: negative: chest pain, palpitations, orthopnea, paroxysmal nocturnal dyspnea, edema, light headedness, other - Medications/Allergies Allergies/Adverse Reactions: Allergies Allergy/AdvReac Type Severity Reaction Status Date / Time No Known Allergies Allergy Verified 08/10/17 03:26 Medications: Current Medications Acetaminophen (Tylenol) 650 mg PO Q6H PRN PRN Reason: Headache/Fever or Pain Last Admin: 08/21/17 09:44 Dose: 650 mg Al Hydroxide/Mg Hydroxide (Maalox) 30 ml PO Q4H PRN PRN Reason: Indigestion Last Admin: 08/21/17 18:09 Dose: 30 ml Albuterol/Ipratropium (Duoneb) 3 ml NEB [id number] PRN PRN Reason: SHORTNESS OF BREATH Last Admin: 08/21/17 18:45 Dose: 3 ml Albuterol/Ipratropium (Duoneb) 3 ml NEB Q4H PRN PRN Reason: Dyspnea/Wheezing/SOB Amitriptyline HCl (Elavil) 50 mg PO HS [place]ANG Last Admin: 08/21/17 20:07 Dose: 50 mg Artificial Tears (Tears Naturale) 1 drop EA EYE PRN PRN PRN Reason: Dry Eyes Aspirin (Ecotrin) 325 mg PO DAILY [facility] Last Admin: 08/21/17 09:39 Dose: 325 mg Atorvastatin Calcium (Lipitor) 40 mg PO HS [facility] Last Admin: 08/21/17 20:07 Dose: 40 mg Beer (Beer) 1 each PO TID-WM [facility] Last Admin: 08/21/17 17:56 Dose: Not Given Bisacodyl (Dulcolax) 10 mg PO Q12H PRN PRN Reason: Constipation Last Admin: 08/21/17 09:38 Dose: 10 mg Bisacodyl (Dulcolax) 10 mg AK Q12H PRN PRN Reason: Constipation Budesonide (Pulmicort Neb Solution) 0.5 mg INH BID-RT [facility] Last Admin: 08/21/17 18:43 Dose: 0.5 mg Dextrose/Water (Dextrose 50%) 25 gm SLOW IVP PRN PRN PRN Reason: PER HYPOGLYCEMIC PROTOCOL Diphenhydramine HCl (Benadryl) 25 mg PO Q6H PRN PRN Reason: Itching & Insomnia or Bryan Brayan Enoxaparin Sodium (Lovenox) 40 mg SC 2100 [facility] Last Admin: 08/21/17 20:10 Dose: 40 mg Glucagon (Glucagon) 1 mg SC PRN PRN PRN Reason: PER HYPOGLYCEMIC PROTOCOL Guaifenesin/Dextromethorphan (Robitussin Dm) 15 ml PO Q4H PRN PRN Reason: Cough Last Admin: 08/18/17 20:35 Dose: 15 ml Dextrose/Water (D5w) 1,000 mls @ 0 mls/hr IV INF PRN; As Directed PRN Reason: PRN HYPOGLYCEMIC PROTOCOL Insulin Human Regular (Humulin R) 0 units SC Q4H PRN; Protocol PRN Reason: POST OP SLIDING SCALE Last Admin: 08/18/17 23:08 Dose: 4 unit Lorazepam (Ativan) 0.5 mg SLOW IVP Q8H PRN PRN Reason: Anxiety/Agitation Metoprolol Tartrate (Lopressor) 25 mg PO BID [facility] Last Admin: 08/21/17 20:07 Dose: 25 mg Mineral Oil (Fleet Mineral Oil) 133 ml AK DAILYPRN PRN PRN Reason: Constipation Nitroglycerin (Nitrostat) 0.4 mg SL Q5MIN PRN PRN Reason: Chest Pain Ondansetron HCl (Zofran) 4 mg IVP Q6H PRN PRN Reason: Nausea/Vomiting Last Admin: 08/21/17 18:10 Dose: 4 mg Pregabalin (Lyrica) 300 mg PO HS [place] Last Admin: 08/21/17 20:08 Dose: 300 mg Sodium Chloride (Flush - Normal Saline) 10 ml IVF Q12HR [place]ANG Last Admin: 08/21/17 09:40 Dose: 10 ml Sodium Chloride (Flush - Normal Saline) 10 ml IVF PRN PRN PRN Reason: Saline Flush
[2017-08-22] MEDS: Acetaminophen 325 MG TAB PO PRN (00:09)
[2017-08-22 04:41] LABS: Hemoglobin 11.8 g/dL (14.0-18.0); Platelet Count 338 thou/uL (130-400)
[2017-08-22 04:55] LABS: Anion Gap 13 mmol/L (10-20); BUN (Urea Nitrogen) 24 mg/dL (8.4-25.7); Calc. Creatinine Clearance 78 mL/min (70-130); Calcium 9.4 mg/dL (7.8-10.44); Carbon Dioxide 23 mmol/L (23-31); Chloride 100 mmol/L (98-107); Estimated GFR-MDRD 77; Glucose 139 mg/dL (80-115); Magnesium 2.2 mg/dL (1.6-2.6); Potassium 3.2 mmol/L (3.5-5.1); Sodium 133 mmol/L (136-145)
[2017-08-22] MEDS: Budesonide 0.5 MG/2 ML NEB INH SCH (06:38)
[2017-08-22] MEDS: BEER 1 CAN PO SCH ×2 (08:51→14:24)
[2017-08-22] MEDS: Aspirin 325 mg Enteric Coated Tablet PO SCH (08:52)
[2017-08-22] MEDS ORDERED: Potassium Chloride 20 MEQ TAB PO SCH ×2 (09:15→17:00)
[2017-08-22] MEDS: Metoprolol Tartrate 25 MG TAB PO SCH (09:28)
[2017-08-22] MEDS ORDERED: Metoprolol Tartrate 25 MG TAB PO SCH (09:30)
--- NOTE | 2017-08-22 09:45 | PRG ---
DATE OF SERVICE: 08/22/2017 He is ready to be discharged, awaiting placement. PHYSICAL EXAMINATION: VITAL SIGNS: Sats are 97% on room air, temperature 97, blood pressure 98/58. He denied any difficul ty breathing. CHEST: No wheezing or crackles. CARDIAC: Normal S1, S2, no gallops. ABDOMEN: Soft. Her electrolytes are normal. H&H is stable. IMPRESSION: 1. Status post coronary artery bypass graft. 2. Respiratory failure. 3. Bronchitis, stable. PLAN: Disposition home. Pulmonary will follow at a distance. Please call as needed.
[2017-08-22 15:35] VITALS: BP 99/63; TEMP 98
--- NOTE | 2017-08-23 07:16 | DIS ---
DATE OF ADMISSION: 08/09/2017 DATE OF DISCHARGE: 08/22/2017 DISCHARGE DISPOSITION: [facility]. FOLLOWUP: 1. The patient will follow up with Dr. Paige Tucker, primary care physician in 1 week. 2. Follow up with Cardiology, Dr. Derian Lind and Cardiovascular, Dr. Garzon in 2 weeks. ALLERGIES: No known drug allergies. The patient was seen and examined on the day of discharge. Denies any new complaints, no chest pain, shortness of breath, palpitations. The patient is ambulating in the hallway. DISCHARGE MEDICATIONS: Aspirin 325 mg daily, metoprolol 25 mg b.i.d., metformin 1000 mg daily, DuoNe b as needed, Lipitor 40 mg at bedtime, amitriptyline 50 mg at bedtime, Tylenol as needed, potassium c hloride 10 mEq daily for the next 3 days. A repeat base met after 3-4 days is recommended. Primary care physician advised to follow. Sublingual nitroglycerin as needed, omeprazole 40 mg at bedtime, L yrica 300 mg at bedtime. INPATIENT CONSULTANTS: 1. Cardiology, Dr. Derian Lind. 2. Pulmonary, Dr. Mcdaniels 3. Cardiovascular, Dr. Garzon. INPATIENT PROCEDURES: 1. On 08/09/2017, the patient underwent cardiac catheterization that showed severe 3-vessel disease. Urgent coronary artery bypass grafting was recommended. 2. On 08/10/2017, the patient underwent emergent coronary artery bypass grafting x5 with left director internal audit al mammary artery to distal LAD, separate reverse greater saphenous vein graft from the aorta to the second diagonal and to the ramus intermedius, sequential reverse greater saphenous vein graft from th e aorta to the obtuse marginal to the circumflex PDA. DIAGNOSTIC TESTS: 1. CT angiogram of the chest on admission was negative for pulmonary embolism. 2. CT scan of the brain on 08/20/2017 for an episode of fall in the patient's room was negative for acute findings. 3. CT angiogram of the chest on 08/17/2017 was negative for pulmonary embolism. BRIEF HOSPITAL COURSE: The patient is a 67-year-old male with hyperlipidemia, diabetes mellitus type 2, and GERD, who presented to the hospital on 08/09/2017 with chest discomfort. His workup was cons istent with non-ST elevation ND with maximum troponin of 1.7. He underwent a cardiac catheterization on 08/10/2017 that showed three-vessel disease. He underwent urgent coronary artery bypass grafting on the same day. He was monitored in the Intensive Care Unit. He had some episodes of encephalopat hy postoperatively that has improved. He appears stable for discharge and has been ambulating in the hallway. His confusion has completely resolved. He has history of alcoholism in the past and shoul d be monitored for alcohol withdrawal. FINAL DIAGNOSES: 1. Non-ST elevation myocardial infarction. 2. Severe three-vessel disease requiring emergent coronary artery bypass grafting. 3. Hypertension. 4. Diabetes mellitus type 2. 5. Gastroesophageal reflux disease. 6. Chronic alcoholism. 7. Chronic kidney disease stage 2. 8. Encephalopathy postoperatively, resolved. SIGNIFICANT LABORATORY DATA: A1c was 9.4. Total time coordinating the discharge of this patient was 40 minutes.
--- NOTE | 2017-08-25 10:28 | PQF ---
KONRAD BRIDGES ANUP G MD [id number] [facility]-261 [id number] CLINICAL DOCUMENTATION CLARIFICATION FORM: POST DISCHARGE Addendum to original discharge summary date: __acute respitory failure with hypoxemia Late entry note date: __ Please exercise your independent, professional judgment in responding to the clarification form. Clinical indicators are provided on the bottom of this form for your review Please check appropriate box(s): [ ] Acute Respiratory Failure with Hypoxia [ ] Acute On Chronic Respiratory Failure with Hypoxia [ ] Acute postoperative Respiratory Failure with hypoxia [ ] Chronic Respiratory Failure only with Hypoxia [ ] Unable to determine In addition, please specify: Present on Admission (POA): [ ] Yes [ ] No [ ] Unable to determine For continuity of documentation, please document condition throughout progress notes and discharge summary. Thank You. CLINICAL INDICATORS - SIGNS / SYMPTOMS / LABS ABG pH < 7.35 or > 7.45 Pulmonary vascular congestion CXR RISK FACTORS Recent surgery AMI TREATMENTS: Oxygen Monitoring of oxygenation status Bi[employer] (This form is maintained as a part of the permanent medical record) 2014 [employer]. All Rights Reserved Candace [email or web address] [phone] TINO
--- NOTE | 2017-08-25 17:57 | EKG ---
Test Reason : STAT Blood Pressure : / mmHG Vent. Rate : 116 BPM Atrial Rate : 116 BPM P-R Int : 192 ms QRS Dur : 086 ms QT Int : 294 ms P-R-T Axes : 052 065 -22 degrees QTc Int : 408 ms Sinus tachycardia Nonspecific T wave abnormality Abnormal ECG When compared with ECG of 10-AUG-2017 20:27, (Unconfirmed) Non-specific change in ST segment in Lateral leads T wave inversion now evident in Lateral leads Confirmed by DR. Ladarius ALMONTE ([id number]) on 08/25/2017 5:57:17 PM Referred By: Jami HERBERT Confirmed By:DR. Ladarius ALMONTE
--- NOTE | 2017-08-25 18:01 | EKG ---
Test Reason : Blood Pressure : / mmHG Vent. Rate : 104 BPM Atrial Rate : 104 BPM P-R Int : 198 ms QRS Dur : 078 ms QT Int : 314 ms P-R-T Axes : 053 078 053 degrees QTc Int : 412 ms Sinus tachycardia Nonspecific T wave abnormality Abnormal ECG When compared with ECG of 15-AUG-2017 20:00, (Unconfirmed) No significant change was found Confirmed by DR. Ladarius ALMONTE ([id number]) on 08/25/2017 6:00:57 PM Referred By: ORESTES Confirmed By:DR. Ladarius ALMONTE
== END 2017-08-22 16:12 | disposition swing bed (61) | DRG 233 ==
LOC: ERS 22:37 → 2NO 23:50 → CCU 08-10 14:57 → 2NO 08-13 19:55
PROVIDERS: ADMIT Hospitalist; ATTEND Hospitalist
PROC: 0210099 Bypass Coronary Artery, One Artery from Left Internal Mammary with Autologous Venous Tissue, Open Approach (ICD-10-PCS; principal; 2017-08-10)
PROC: 4A023N7 Measurement of Cardiac Sampling and Pressure, Left Heart, Percutaneous Approach (ICD-10-PCS; 2017-08-10)
PROC: 021309W Bypass Coronary Artery, Four or More Arteries from Aorta with Autologous Venous Tissue, Open Approach (ICD-10-PCS; 2017-08-10)
PROC: 06BQ4ZZ Excision of Left Saphenous Vein, Percutaneous Endoscopic Approach (ICD-10-PCS; 2017-08-10)
PROC: 5A1221Z Performance of Cardiac Output, Continuous (ICD-10-PCS; 2017-08-10)
PROC: 3E033XZ Introduction of Vasopressor into Peripheral Vein, Percutaneous Approach (ICD-10-PCS; 2017-08-10)
PROC: 30233R1 Transfusion of Nonautologous Platelets into Peripheral Vein, Percutaneous Approach (ICD-10-PCS; 2017-08-10)
PROC: B215YZZ Fluoroscopy of Left Heart using Other Contrast (ICD-10-PCS; 2017-08-10)
PROC: B211YZZ Fluoroscopy of Multiple Coronary Arteries using Other Contrast (ICD-10-PCS; 2017-08-10)
PROC: 30233N1 Transfusion of Nonautologous Red Blood Cells into Peripheral Vein, Percutaneous Approach (ICD-10-PCS; 2017-08-12)
DX: I21.4 Non-ST elevation (NSTEMI) myocardial infarction (principal); G93.40 Encephalopathy, unspecified; J96.91 Respiratory failure, unspecified with hypoxia; N17.9 Acute kidney failure, unspecified; E27.40 Unspecified adrenocortical insufficiency; J98.11 Atelectasis; F05 Delirium due to known physiological condition; J90 Pleural effusion, not elsewhere classified; I25.110 Atherosclerotic heart disease of native coronary artery with unstable angina pectoris; F10.20 Alcohol dependence, uncomplicated; I12.9 Hypertensive chronic kidney disease with stage 1 through stage 4 chronic kidney disease, or unspecified chronic kidney disease; E11.22 Type 2 diabetes mellitus with diabetic chronic kidney disease; N18.2 Chronic kidney disease, stage 2 (mild); I10 Essential (primary) hypertension; E78.5 Hyperlipidemia, unspecified; E11.65 Type 2 diabetes mellitus with hyperglycemia; K21.9 Gastro-esophageal reflux disease without esophagitis; N52.9 Male erectile dysfunction, unspecified; R26.89 Other abnormalities of gait and mobility; M19.90 Unspecified osteoarthritis, unspecified site; G47.33 Obstructive sleep apnea (adult) (pediatric); E87.6 Hypokalemia; R00.0 Tachycardia, unspecified; E66.01 Morbid (severe) obesity due to excess calories; J40 Bronchitis, not specified as acute or chronic; M48.061 Spinal stenosis, lumbar region without neurogenic claudication; I49.3 Ventricular premature depolarization; Z96.642 Presence of left artificial hip joint; Z79.84 Long term (current) use of oral hypoglycemic drugs; Z91.81 History of falling; Z87.39 Personal history of other diseases of the musculoskeletal system and connective tissue; Z87.448 Personal history of other diseases of urinary system; Z79.899 Other long term (current) drug therapy; Z82.49 Family history of ischemic heart disease and other diseases of the circulatory system
CPT/HCPCS: 36415; 36416; 36430; 70450; 71045; 71275; 76942; 80048; 80053; 81003; 82330; 82533; 82565; 82803; 82805; 83036; 83690; 83735; 84443; 84484; 85014; 85018; 85025; 85049; 85379; 85610; 85730; 86850; 86900; 86901; 93005; 93010; 93458; 93798; 94002; 94640; 94660; 94760; 96360; 99152; 99153; A4216; C1769; G8978-GP-CN; G8979-GP-CK; G8987-GO-CL; G8988-GO-CJ; J0131; J0696; J1160; J1644; J1650; J1720; J1815; J1885; J1940; J2001; J2060; J2150; J2250; J2270; J2370; J2405; J2440; J2704; J2720; J2765; J3010; J3475; J3480; J7050; J7620; J7626; P9016; P9035; P9045; S0028

== ENCOUNTER 2017-08-27 12:24 | Inpatient (IN) | payer MEDICARE ==
[2017-08-27 14:59] VITALS: BMI 29.1
[2017-08-27] MEDS ORDERED: Bisacodyl 10 MG SUPP PR PRN (17:19)
[2017-08-27] MEDS ORDERED: Ondansetron HCl/PF 4 MG/2 ML Vial IVP PRN (17:19)
[2017-08-27] MEDS ORDERED: Senokot 8.6 MG TAB PO PRN (17:19)
[2017-08-27] MEDS ORDERED: Bisacodyl 5 MG TAB PO PRN (17:19)
--- NOTE | 2017-08-27 18:13 | CON ---
DATE OF CONSULTATION: 08/27/2017 REASON FOR CONSULTATION: Elevated troponin. HISTORY OF PRESENT ILLNESS: Mr. Harris is a very pleasant 67-year-old gentleman, who I saw and evalu ated 3 weeks ago. He presented with a non-Q-wave CA. He was found to have severe multivessel diseas e. He underwent successful bypass surgery. He was transferred to rehab and was at a skilled facilit y. Received a call today from his primary provider. His troponin was elevated with normal CK-MB. He wa s asymptomatic. Further trending of his troponin, felt the troponin I continued to slightly increase with a normal CK-MB. He was then transferred to [place] for further disposition. Upon my evaluation, Mr. Harris does state he had an episode of epigastric discomfort yesterday starti ng at 9:30 in the morning. It lasted all day yesterday. He did not alert the staff. He states he w ent to sleep and awoke without any symptoms. He again is symptom-free. EKGs suggested ST-T wave bety nges suggesting ischemia, but are unchanged from previous. PAST MEDICAL HISTORY: As above including hyperlipidemia, acid reflux, osteoarthritis, hip surgery, a nkle surgery, colonoscopy, bypass surgery. ALLERGIES: None. MEDICATIONS: Lipitor, Lyrica, simvastatin, Elavil, metformin, metoprolol, p.r.n. nitroglycerin, Lyri ca. ALLERGIES: None. REVIEW OF SYSTEMS: Ten-point review of systems as above, otherwise negative. PHYSICAL EXAMINATION: VITAL SIGNS: Blood pressure 114/73, pulse 106, temperature 98. GENERAL: Patient is a pleasant male, who is in no acute distress. The patient appears his stated ag e. VITAL SIGNS: NEUROLOGIC: The patient is alert and oriented times 3 with no focal neurologic deficits. HEENT: Sclerae without icterus. Mouth has moist mucous membranes with normal pallor. NECK: No JVD. Carotid upstroke brisk. No bruits bilaterally. LUNGS: Clear to auscultation with unlabored respirations. BACK: No scoliosis or kyphosis. CARDIAC: Regular rate and rhythm with normal S1 and S2. No S3 or S4 noted. No significant rubs, murmurs, thrills, or gallops noted throughout the precordium. PMI is not displaced. There is no parasternal heave. ABDOMEN: Soft, nontender, nondistended. No peritoneal signs present. No hepatosplenomegaly. No abnormal striae. EXTREMITIES: 2+ femoral and 2+ dorsalis pedis pulses. No cyanosis, clubbing, or edema. SKIN: No gross abnormalities. PERTINENT LABORATORY DATA: Troponin 4.2, BNP of 258, CK-MB of 1.4. IMPRESSION: 1. Elevated troponin. 2. Coronary artery disease. 3. Status post bypass surgery. RECOMMENDATIONS: Mr. Harris's current presentation is somewhat confusing. It appears if he had an e vent, this was yesterday starting at 9:30. He would be more than 24 hours out from his event. He alexis s no current symptoms. At this point, I recommend close observation. This though does not correspon d with an event given that his CK-MB is within normal limits with a mild increase in his troponin. B e that as it may, Mr. Harris is not interested in a more aggressive approach. He is not interested o n proceeding with a noninvasive stress study or repeat angiography. I did state that this may be the presentation of a closed bypass graft. Again, he does not state to have any further testing outside of further troponins and would like to return to the skilled facility tomorrow. He understands the risks involved.
[2017-08-27 18:17] LABS: CKMB 1.2 ng/mL (0-6.6)
[2017-08-27 18:40] LABS: Troponin I 2.779 ng/mL (< 0.028)
[2017-08-27] MEDS: Heparin 5,000 UNITS/ML VIAL SC SCH (20:40)
[2017-08-28] MEDS ORDERED: Pregabalin 75 MG CAP PO SCH (00:15)
[2017-08-28] MEDS ORDERED: Amitriptyline HCl 25 MG TAB PO SCH (00:15)
[2017-08-28 00:17] LABS: CKMB 1.1 ng/mL (0-6.6)
[2017-08-28 00:22] LABS: Troponin I 2.775 ng/mL (< 0.028)
--- NOTE | 2017-08-28 09:26 | HP ---
CHIEF COMPLAINT: Chest pain. HISTORY OF PRESENT ILLNESS: This is a 67-year-old male with a recent history of cardiac bypass who w as at his rehab facility when he had chest pain the evening prior to presentation. His chest pain rayo bsequently has self-resolved. The patient remained hemodynamically stable; however, the patient had grossly elevated troponins. The patient is status post CABG and the degree of elevated troponin is e xpected. The troponin elevation was without CK-MB elevation. However, the patient also had progress ively increasing troponins and was therefore transferred to our facility for further evaluation and c oncern over potential reinfarction post-CABG. At the time of my evaluation, the patient denies any chest pain, chest pressure, shortness of breath or dyspnea with exertion that has been worse than his new postoperative baseline. The patient raman hughes has no new complaints at this point in time. REVIEW OF SYSTEMS: As per HPI. CONSTITUTIONAL: No significant weight gain or loss in the last week that the patient is aware of. N o fevers, no chills. HEENT: No new headaches, vision changes, dizziness or lightheadedness. CARDIOVASCULAR: Chest pain as described above. Currently, chest pain free. RESPIRATORY: No shortness of breath, no cough, no congestion, exertional dyspnea or fatigue as noted above. GASTROINTESTINAL: Denies any nausea, vomiting, abdominal pain, diarrhea or constipation. GENITOURINARY: Denies any issues with dysuria or changes in his urinary color, quantity or odor. MUSCULOSKELETAL: Denies any new arthralgias or myalgias. The patient does make note that he is left handed and postoperatively he has had some intermittent paresthesias of his left hand and some subje ctive weakness of his left hand as well. Denies any weakness of the left arm or shoulder, however. The remainder of the review of systems is otherwise negative. PAST MEDICAL HISTORY: As per HPI and includes the following: Status post CABG as described above, _ ____, hyperlipidemia, arthritis, and normal pressure hydrocephalus, gastroesophageal reflux disease, recent familial essential tremor, erectile dysfunction, hypertension. MEDICATIONS: Acetaminophen 650 mg p.o. q.6, omeprazole 40 mg p.o. q.h.s., nitroglycerin 0.4 mg subli ngual q.5 minutes p.r.n., metoprolol tartrate 25 mg p.o. b.i.d., atorvastatin 40 mg p.o. at bedtime, amitriptyline 50 mg p.o. q.h.s., mg p.o. at bedtime, metformin 1000 mg p.o. q.a.m. ALLERGIES: No known allergies. FAMILY HISTORY: Significant for myocardial infarction in his father. SOCIAL HISTORY: The patient denies any active alcohol, tobacco or illicit drug use. Previously had 4-5 beers a day. 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 As such, patient states that he wishes to be a do not intubate, do not resuscitate. He has discussed this with myself, his PCP, and his daughter at the bedside. Please see the advanced care planning note for further details. PHYSICAL EXAMINATION: GENERAL: The patient is awake, alert, appropriate, in no acute distress, lying in the hospital bed. HEENT: Normocephalic, atraumatic. Moist mucous membranes, equal ocular motions are intact. CARDIOVASCULAR: S1, S2. No murmurs, rubs or gallops, soft heart tones noted. Pulses 2+ bilateral u pper extremity, no pitting pedal edema. Surgical sites appear to be clean, dry, and intact. RESPIRATORY: Equal air movement without conversational dyspnea. No wheezes, rales or rhonchi, gross ly clear to auscultation. ABDOMEN: Positive bowel sounds, soft, nontender to palpation. MUSCULOSKELETAL: Moving all 4 extremities equally and able to self reposition in the bed without dif ficulty or assist. LABORATORY DATA AND IMAGING: Most recent available from 08/26/2017. WBC 7.6, hemoglobin 11.6, hemat ocrit 35.0, platelets 331. Sodium 141, potassium 4.2, chloride 104, bicarbonate 24, BUN 17, creatini ne 0.96, glucose 140, calcium 9.4, phosphorus 3.0, magnesium 2.0, total bilirubin 0.6, AST 28, ALT 33 , alkaline phosphatase 138. Troponin serially 3.354, 4.237, 4.212. Total protein 6.8, albumin 3.8. ASSESSMENT AND PLAN: This is a 67-year-old male with recent coronary artery bypass graft and chest p ain who presents with a chief complaint of chest pain that occurred approximately 24 hours prior to a rrival at our facility. 1. Chest pain, concern for reinfarction versus elevation that is secondary to coronary artery bypass graft. We appreciate Cardiology consultation. Serial troponins, maintain the patient on telemetry. After much discussion with the patient and his family at bedside, the patient has agreed to a stres s test. 2. Known history of coronary artery disease. Resume the patient on his home medications without bety nge. See the plan otherwise above. 3. Diet: Cardiac, n.p.o. prior to stress test. 4. Activity: As tolerated. 5. Deep venous thrombosis prophylaxis with enoxaparin. Thank you for asking me to care for the patient. Questions or concerns, please contact me at [facility].
[2017-08-28] MEDS: Heparin 5,000 UNITS/ML VIAL SC SCH ×3 (09:45→20:54)
[2017-08-28] MEDS ORDERED: Ibuprofen 600 MG TAB PO PRN (10:05)
[2017-08-28] MEDS ORDERED: Communication Order-Pharmacy FS SCH (10:45)
[2017-08-28] MEDS: Pregabalin 75 MG CAP PO SCH (20:48)
[2017-08-28] MEDS: Amitriptyline HCl 25 MG TAB PO SCH (20:50)
--- NOTE | 2017-08-28 23:28 | PDOC.PN ---
- Objective Resuscitation Status: Resuscitation Status DNR:Do Not Resuscitate Vital Signs & Weight: Vital Signs (12 hours) Temp Pulse Resp BP BP Pulse Ox 08/28/17 20:00 98 F 114 H 16 96 08/28/17 19:47 98 F 114 H 16 107/68 96 08/28/17 15:12 98.4 F 111 H 20 99/66 95 Weight Weight 179 lb 8 oz I&O: 08/27/17 08/28/17 08/29/17 06:59 06:59 06:59 Intake Total 100 603 Output Total 850 634 Balance -750 -31 Additional Labs: Accuchecks 08/28/17 06:04 POC Glucose 149 H Dx/Plan - Plan * .
[2017-08-29] MEDS: Acetaminophen 500 MG TAB PO PRN (05:01)
[2017-08-29] MEDS ORDERED: Iopamidol 370 76% 100 ML VIAL ONE (07:48)
[2017-08-29] MEDS: Heparin 5,000 UNITS/ML VIAL SC SCH ×3 (07:54→21:38)
[2017-08-29] MEDS ORDERED: Lidocaine 1% (PF) 30 ML VIAL ONE (09:24)
[2017-08-29] MEDS ORDERED: Midazolam HCl 2 mg/2 ml Vial ONE (10:14)
[2017-08-29] MEDS ORDERED: Carvedilol 3.125 MG TAB PO SCH (11:15)
[2017-08-29] MEDS ORDERED: Clopidogrel Bisulfate 75 MG TAB PO SCH (11:30)
[2017-08-29] MEDS ORDERED: Acetaminophen/Codeine 30-300mg Tablet PO PRN ×2 (11:44)
[2017-08-29] MEDS ORDERED: Sodium Chloride 0.9% 200 ML IV SCH (11:44)
[2017-08-29] MEDS ORDERED: Nitroglycerin 0.4 MG TAB (25 Tab Bottle) SL PRN (11:44)
[2017-08-29] MEDS ORDERED: traMADol HCl 50 MG TAB PO PRN (11:44)
[2017-08-29] MEDS: Carvedilol 3.125 MG TAB PO SCH (17:47)
[2017-08-29] MEDS: Amitriptyline HCl 25 MG TAB PO SCH (21:38)
[2017-08-29] MEDS: Atorvastatin Calcium 40 MG TAB PO SCH (21:38)
[2017-08-29] MEDS: Pregabalin 75 MG CAP PO SCH (21:39)
--- NOTE | 2017-08-30 05:28 | PDOC.PN ---
- Subjective Encounter Start Date: 08/29/17 Encounter Start Time: 17:00 Subjective: late entry -: nsg notes rev, dyana ovn, pt is seen s/p [facility] and has tolerated the procedure -: no chest pain, palpitations - Objective Resuscitation Status: Resuscitation Status DNR:Do Not Resuscitate Vital Signs & Weight: Vital Signs (12 hours) Temp Pulse Resp BP Pulse Ox 08/30/17 04:00 98.7 F 118 H 20 125/79 95 08/29/17 19:30 98.5 F 117 H 16 127/83 95 Weight Weight 177 lb 3.2 oz I&O: 08/28/17 08/29/17 08/30/17 06:59 06:59 06:59 Intake Total 986 966 8879 Output Total 850 1034 1400 Balance -750 -331 0 Phys Exam - Physical Examination Constitutional: NAD HEENT: PERRLA, moist MMs, sclera anicteric Respiratory: no wheezing, no rales, no rhonchi, clear to auscultation bilateral reasonable air mvmt, no conversational dyspnea Cardiovascular: RRR, no significant murmur, no rub surg sites c/d/i, [facility] site c/d/i w/o hematoma, erythema, swelling Gastrointestinal: soft, non-tender, positive bowel sounds Musculoskeletal: pulses present trace LLE edema, grossly unchanged from prior exam Neurological: moves all 4 limbs self re-positions in bed w/o difficulty or assistance req Psychiatric: normal affect, A&O x 3 Dx/Plan - Plan * chest pain * no further symptoms hx CAD recent CABG currently s/p [facility] with an impaired graft * apprec cardiology c/s * hemodynamically stable * metoprolol changed to carvedilol, plavix added * PT re-consultation diet: cardiac activity: as marek dvt ppx d/w with patient at bedside for 30 min also d/w patient patient's PCP Dr. Aceves over the phone Review of Systems - Medications/Allergies Allergies/Adverse Reactions: Allergies Allergy/AdvReac Type Severity Reaction Status Date / Time No Known Allergies Allergy Verified 08/10/17 03:26 Medications: Current Medications Acetaminophen (Tylenol) 500 mg PO Q6H PRN PRN Reason: Pain Last Admin: 08/29/17 05:01 Dose: 500 mg Acetaminophen/Codeine Phosphate (Tylenol #3) 1 tab PO Q4H PRN PRN Reason: Mild Pain (1-3) Acetaminophen/Codeine Phosphate (Tylenol #3) 2 tab PO Q4H PRN PRN Reason: Moderate Pain (4-6) Amitriptyline HCl (Elavil) 50 mg PO HS [facility] Last Admin: 08/29/17 21:38 Dose: 50 mg Atorvastatin Calcium (Lipitor) 40 mg PO [facility] Last Admin: 08/29/17 21:38 Dose: 40 mg Bisacodyl (Dulcolax) 10 mg PO DAILYPRN PRN PRN Reason: Constipation Bisacodyl (Dulcolax) 10 mg [place] Q24H PRN PRN Reason: Constipation Carvedilol (Coreg) 1.625 mg PO BID-[facility] Last Admin: 08/29/17 17:47 Dose: 1.625 mg Clopidogrel Bisulfate (Plavix) 75 mg PO DAILY [facility] Heparin Sodium (Porcine) (Heparin) 5,000 units SC TID [facility] Last Admin: 08/29/17 21:38 Dose: 5,000 units Ibuprofen (Motrin) 600 mg PO Q6H PRN PRN Reason: Pain Last Admin: 08/28/17 10:26 Dose: 600 mg Nitroglycerin (Nitrostat) 0.4 mg SL Q5MIN PRN PRN Reason: Chest Pain Ondansetron HCl (Zofran) 4 mg IVP Q6H PRN PRN Reason: Nausea/Vomiting Pregabalin (Lyrica) 300 mg PO [facility] Last Admin: 08/29/17 21:39 Dose: 300 mg Senna (Senokot) 2 tab PO HSPRN PRN PRN Reason: Constipation Sodium Chloride (Flush - Normal Saline) 10 ml IVF Q12HR [facility] Last Admin: 08/29/17 21:39 Dose: 10 ml Sodium Chloride (Flush - Normal Saline) 10 ml IVF PRN PRN PRN Reason: Saline Flush Tramadol HCl (Ultram) 50 mg PO Q6H PRN PRN Reason: Moderate Pain (4-6) Last Admin: 08/29/17 21:39 Dose: 50 mg
[2017-08-30] MEDS: Carvedilol 3.125 MG TAB PO SCH (08:24)
[2017-08-30] MEDS: Clopidogrel Bisulfate 75 MG TAB PO SCH (08:24)
[2017-08-30] MEDS: Heparin 5,000 UNITS/ML VIAL SC SCH ×3 (08:25→20:56)
[2017-08-30] MEDS ORDERED: Clopidogrel Bisulfate 75 MG TAB PO SCH (09:00)
[2017-08-30] MEDS ORDERED: Carvedilol 6.25 MG TAB PO SCH (13:00)
--- NOTE | 2017-08-30 13:03 | PDOC.CTH ---
<Leeann Pavon - Last Filed: 08/30/17 13:01> Cardiology Progress Note - Subjective The pt seen and examined. No overnight events. No cardiac complaints. - Objective Vital Signs Temp Pulse Resp BP BP Pulse Ox 08/30/17 08:18 98.2 F 127 H 19 122/88 98 08/30/17 04:00 98.7 F 118 H 20 125/79 95 Weight 177 lb 3.2 oz 08/29/17 08/30/17 08/31/17 06:59 06:59 06:59 Intake Total 703 1400 Output Total 1034 1400 Balance -331 0 - Physical Examination General/Neuro: alert & oriented x3 Neck: no JVD present Lungs: CTA Heart: RRR Abdomen: soft Extremities: other: (No edema) - Telemetry Telemetry Rhythm: ST 110s - Labs Troponin/CKMB CK-MB (CK-2) 1.1 ng/mL (0-6.6) 08/27/17 23:34 Troponin I 2.775 ng/mL (< 0.028) H* 08/27/17 23:34 - Assessment/Plan 1. CAD with s/p CABGx5 in 07/2017 - S/p LHC with an impaired graft on 08/29/17 with medical tx. On plavix, ASA, BBlocker, and Statin. 2. Tachycardia - increase Coreg from 1.625 mg to 3.125mg BID; cont.to monitor 3. DM type 2 - managed by PCP MAR reviewed Review of Systems - Review of Systems Constitutional: reports: weakness EENTM: reports: no symptoms reported Respiratory: reports: no symptoms reported Cardiac (ROS): reports: no symptoms reported ABD/GI: reports: no symptoms reported : reports: no symptoms reported Musculoskeletal: reports: no symptoms reported <Stephani Carrera - Last Filed: 08/31/17 21:53> Cardiology Progress Note - Objective Vital Signs Temp Pulse Resp BP BP 08/31/17 18:00 98.3 F 118 H 20 111/67 08/31/17 13:05 94/62 Weight 177 lb 3.2 oz 08/30/17 08/31/17 09/01/17 06:59 06:59 06:59 Intake Total 1400 960 Output Total 1400 550 Balance 0 410 - Labs Result Diagrams: 08/31/17 05:52 08/31/17 05:52 Troponin/CKMB CK-MB (CK-2) 1.1 ng/mL (0-6.6) 08/27/17 23:34 Troponin I 2.775 ng/mL (< 0.028) H* 08/27/17 23:34 - Assessment/Plan Pt. was seen and eval. by me. I agree with the A/P by the SARAH Pavno. He remains a little tachycardic. Increasing betablockers as tolerated. Failed SVG to the RCA. Diffuse CAD. Small vessels. Continue plavix.
[2017-08-30] MEDS ORDERED: Aspirin 81 mg Enteric Coated Tablet PO SCH (14:30)
[2017-08-30] MEDS ORDERED: Carvedilol 3.125 MG TAB PO SCH ×2 (17:00→21:00)
[2017-08-30] MEDS: Acetaminophen 500 MG TAB PO PRN (17:24)
[2017-08-30] MEDS: Amitriptyline HCl 25 MG TAB PO SCH (20:53)
[2017-08-30] MEDS: Pregabalin 75 MG CAP PO SCH (20:54)
[2017-08-30] MEDS: Atorvastatin Calcium 40 MG TAB PO SCH (20:55)
--- NOTE | 2017-08-30 21:49 | PDOC.PN ---
- Subjective Encounter Start Date: 08/30/17 Encounter Start Time: 19:00 Patient seen and examined for CP. No new complaints. Denies any CP. No overnight events - Objective Resuscitation Status: Resuscitation Status DNR:Do Not Resuscitate MAR Reviewed: Yes Vital Signs & Weight: Vital Signs (12 hours) Temp Pulse Pulse Pulse Resp BP BP 08/30/17 16:53 125 H 119 H 131/83 126/83 08/30/17 16:45 98.9 F 119 H 19 08/30/17 15:00 117 H 121 H 117/69 117/71 08/30/17 12:05 99.1 F 115 H 19 BP BP Pulse Ox Pulse Ox Pulse Ox 08/30/17 16:53 97 08/30/17 16:45 126/83 97 08/30/17 15:00 99 98 08/30/17 12:05 138/63 96 Weight Weight 177 lb 3.2 oz I&O: 08/29/17 08/30/17 08/31/17 06:59 06:59 06:59 Intake Total 703 1400 720 Output Total 1034 1400 550 Balance -331 0 170 EKG Reviewed by me: Yes (Tele SR) Phys Exam - Physical Examination Constitutional: NAD Respiratory: no wheezing, no rhonchi Cardiovascular: RRR, no rub Gastrointestinal: soft, non-tender, positive bowel sounds Musculoskeletal: no edema Dx/Plan - Plan out of bed/ambulate, DVT proph w/heparin, DVT proph w/SCDs IMPRESSION: 1. Chest pain with Elevated troponins ?NSTEMI s/p Cath this admission 2. CAD s/p recent CABG 3. HTN 4. DM2 5. GERD/ Chronic Alcohol use/ CKD 2 PLAN: Cont ASA/Plavix Cont Coreg Add Sliding scale Add Stool softeners AM labs Cont current meds as below Review of Systems - Review of Systems Respiratory: negative: Cough, Dry, Shortness of Breath, Hemoptysis, SOB with Excertion, Pleuritic Pain, Sputum, Wheezing Cardiovascular: negative: chest pain, palpitations, orthopnea, paroxysmal nocturnal dyspnea, edema, light headedness, other Gastrointestinal: Constipation. negative: Nausea, Vomiting, Abdominal Pain, Diarrhea, Melena, Hematochezia, Other - Medications/Allergies Allergies/Adverse Reactions: Allergies Allergy/AdvReac Type Severity Reaction Status Date / Time No Known Allergies Allergy Verified 08/10/17 03:26 Medications: Current Medications Acetaminophen (Tylenol) 500 mg PO Q6H PRN PRN Reason: Pain Last Admin: 08/30/17 17:24 Dose: 500 mg Acetaminophen/Codeine Phosphate (Tylenol #3) 1 tab PO Q4H PRN PRN Reason: Mild Pain (1-3) Acetaminophen/Codeine Phosphate (Tylenol #3) 2 tab PO Q4H PRN PRN Reason: Moderate Pain (4-6) Amitriptyline HCl (Elavil) 50 mg PO HS [facility] Last Admin: 08/30/17 20:53 Dose: 50 mg Aspirin (Ecotrin) 81 mg PO DAILY [facility] Atorvastatin Calcium (Lipitor) 40 mg PO HS [facility] Last Admin: 08/30/17 20:55 Dose: 40 mg Bisacodyl (Dulcolax) 10 mg PO DAILYPRN PRN PRN Reason: Constipation Bisacodyl (Dulcolax) 10 mg [place] Q24H PRN PRN Reason: Constipation Last Admin: 08/30/17 20:53 Dose: 10 mg Carvedilol (Coreg) 6.25 mg PO BID-[facility] Carvedilol (Coreg) 6.25 mg PO NOW [facility] Stop: 08/30/17 23:59 Clopidogrel Bisulfate (Plavix) 75 mg PO DAILY [facility] Last Admin: 08/30/17 08:24 Dose: 75 mg Heparin Sodium (Porcine) (Heparin) 5,000 units SC TID [facility] Last Admin: 08/30/17 20:56 Dose: 5,000 units Ibuprofen (Motrin) 600 mg PO Q6H PRN PRN Reason: Pain Last Admin: 08/28/17 10:26 Dose: 600 mg Nitroglycerin (Nitrostat) 0.4 mg SL Q5MIN PRN PRN Reason: Chest Pain Ondansetron HCl (Zofran) 4 mg IVP Q6H PRN PRN Reason: Nausea/Vomiting Pregabalin (Lyrica) 300 mg PO HS [facility] Last Admin: 08/30/17 20:54 Dose: 300 mg Senna (Senokot) 2 tab PO HSPRN PRN PRN Reason: Constipation Sodium Chloride (Flush - Normal Saline) 10 ml IVF Q12HR [facility] Last Admin: 08/30/17 20:56 Dose: 10 ml Sodium Chloride (Flush - Normal Saline) 10 ml IVF PRN PRN PRN Reason: Saline Flush Tramadol HCl (Ultram) 50 mg PO Q6H PRN PRN Reason: Moderate Pain (4-6) Last Admin: 08/29/17 21:39 Dose: 50 mg
[2017-08-31] MEDS ORDERED: Insulin Regular 300 UNITS/3 ML VIAL SC PRN ×2 (05:48)
[2017-08-31] MEDS ORDERED: Dextrose 5% in Water 1,000 ML IV PRN (05:48)
[2017-08-31] MEDS ORDERED: Dextrose 50% Abboject 50 ML SYRINGE SLOW IVP PRN (05:48)
[2017-08-31 06:02] LABS: #Eosinphils 0.3 thou/uL (0.0-0.7); #Lymphocytes 1.6 thou/uL (1.20-3.40); #Monocytes 0.7 thou/uL (0.11-0.59); #Neutrophils 5.5 thou/uL (1.40-6.50); %Basophils 0.2 % (0.0-1.0); %Eosinophils 3.3 % (0.0-10.0); %Lymphocytes 19.4 % (21.0-51.0); %Monocytes 9.1 % (0.0-10.0); Hemoglobin 11.6 g/dL (14.0-18.0); Mean Corpuscular HGB CONC 33.4 g/dL (32.0-36.0); Mean Corpuscular Hemoglobin 31.2 pg (27.0-31.0); Mean Corpuscular Volume 93.6 fL (78.0-98.0); Mean Platelet Volume 6.3 fL (7.4-10.4); Platelet Count 241 thou/uL (130-400); RBC Distribution Width 12.9 % (11.5-14.5); Red Blood Cell (RBC) Count 3.72 mill/uL (4.70-6.10); White Blood Cell (WBC) Count 8.1 thou/uL (4.8-10.8)
[2017-08-31 06:12] LABS: Anion Gap 13 mmol/L (10-20); BUN (Urea Nitrogen) 11 mg/dL (8.4-25.7); Calc. Creatinine Clearance 89 mL/min (70-130); Calcium 9.1 mg/dL (7.8-10.44); Carbon Dioxide 21 mmol/L (23-31); Chloride 108 mmol/L (98-107); Estimated GFR-MDRD 82; Glucose 123 mg/dL (80-115); Magnesium 2.1 mg/dL (1.6-2.6); Potassium 4.3 mmol/L (3.5-5.1); Sodium 138 mmol/L (136-145)
[2017-08-31] MEDS: Polyethylene Glycol 3350 17 GM Packet PO SCH (09:23)
[2017-08-31] MEDS: Clopidogrel Bisulfate 75 MG TAB PO SCH (09:23)
[2017-08-31] MEDS: Carvedilol 3.125 MG TAB PO SCH ×2 (09:24→18:13)
[2017-08-31] MEDS: Aspirin 81 mg Enteric Coated Tablet PO SCH (09:24)
[2017-08-31] MEDS: Senokot S 8.6-50 MG TAB PO SCH ×2 (09:24→21:22)
[2017-08-31] MEDS: Heparin 5,000 UNITS/ML VIAL SC SCH (09:30)
[2017-08-31] MEDS ORDERED: Magnesium Citrate 300 ML BOT PO SCH (15:45)
--- NOTE | 2017-08-31 16:41 | PDOC.CTH ---
<Leeann Pavon - Last Filed: 08/31/17 16:34> Cardiology Progress Note - Subjective The pt seen and examined. No overnight events. No cardiac complaints. - Objective Vital Signs Temp Pulse Resp BP BP 08/31/17 13:05 94/62 08/31/17 08:35 97.4 F L 117 H 20 131/60 08/31/17 08:00 97.4 F L 117 H 20 Weight 177 lb 3.2 oz 08/30/17 08/31/17 09/01/17 06:59 06:59 06:59 Intake Total 1400 960 Output Total 1400 550 Balance 0 410 - Physical Examination General/Neuro: alert & oriented x3 Neck: no JVD present Lungs: CTA Heart: RRR Abdomen: soft Extremities: other: (No edema) - Telemetry Telemetry Rhythm: ST 100-110s - Labs Result Diagrams: 08/31/17 05:52 08/31/17 05:52 Troponin/CKMB CK-MB (CK-2) 1.1 ng/mL (0-6.6) 08/27/17 23:34 Troponin I 2.775 ng/mL (< 0.028) H* 08/27/17 23:34 - Assessment/Plan 1. CAD with s/p CABGx5 in 07/2017 - S/p LHC with an impaired graft on 08/29/17 with medical tx. On plavix, ASA, BBlocker, and Statin. 2. Tachycardia - HR has been 100-110s with Coreg 6.25mg BID; will adjust Coreg' s dosage when his BP is more stable; cont.to monitor 3. DM type 2 - managed by PCP MAR reviewed Review of Systems - Review of Systems Constitutional: reports: no symptoms reported EENTM: reports: no symptoms reported Respiratory: reports: no symptoms reported Cardiac (ROS): reports: no symptoms reported ABD/GI: reports: no symptoms reported : reports: no symptoms reported <Stephani Carrera - Last Filed: 08/31/17 21:53> Cardiology Progress Note - Objective Vital Signs Temp Pulse Resp BP BP 08/31/17 18:00 98.3 F 118 H 20 111/67 08/31/17 13:05 94/62 Weight 177 lb 3.2 oz 08/30/17 08/31/17 09/01/17 06:59 06:59 06:59 Intake Total 1400 960 Output Total 1400 550 Balance 0 410 - Labs Result Diagrams: 08/31/17 05:52 08/31/17 05:52 Troponin/CKMB CK-MB (CK-2) 1.1 ng/mL (0-6.6) 08/27/17 23:34 Troponin I 2.775 ng/mL (< 0.028) H* 08/27/17 23:34 - Assessment/Plan Pt. was seen and eval. by me. I agree with the A/P by the SARAH Pavon.
--- NOTE | 2017-08-31 16:59 | PDOC.PN ---
- Subjective Encounter Start Date: 08/31/17 Encounter Start Time: 15:00 Patient seen and examined for CP. No new CP. Constipated. No overnight events - Objective Resuscitation Status: Resuscitation Status DNR:Do Not Resuscitate MAR Reviewed: Yes Vital Signs & Weight: Vital Signs (12 hours) Temp Pulse Resp BP BP 08/31/17 13:05 94/62 08/31/17 08:35 97.4 F L 117 H 20 131/60 08/31/17 08:00 97.4 F L 117 H 20 Weight Weight 177 lb 3.2 oz I&O: 08/30/17 08/31/17 09/01/17 06:59 06:59 06:59 Intake Total 1400 960 Output Total 1400 550 Balance 0 410 Result Diagrams: 08/31/17 05:52 08/31/17 05:52 Additional Labs: Accuchecks 08/31/17 08/31/17 10:51 07:36 POC Glucose 255 H 117 H EKG Reviewed by me: Yes (Tele SR) Phys Exam - Physical Examination Constitutional: NAD Respiratory: no wheezing, no rhonchi Cardiovascular: RRR, no rub Gastrointestinal: soft, non-tender, positive bowel sounds Musculoskeletal: no edema Neurological: moves all 4 limbs Dx/Plan - Plan DVT proph w/SCDs IMPRESSION: 1. NSTEMI 2. CAD s/p recent CABG 3. HTN 4. DM2 5. GERD/ Chronic Alcohol use/ CKD 2 /Constipation PLAN: Cont ASA/Plavix/Coreg/Statins Cont Sliding scale Cont current meds as below Treat constipation DC SQ Heparin - Patient ambulating DC to SNF if ok with consultants Review of Systems - Review of Systems Respiratory: negative: Cough, Dry, Shortness of Breath, Hemoptysis, SOB with Excertion, Pleuritic Pain, Sputum, Wheezing Cardiovascular: negative: chest pain, palpitations, orthopnea, paroxysmal nocturnal dyspnea, edema, light headedness, other Gastrointestinal: Constipation. negative: Nausea, Vomiting, Abdominal Pain, Diarrhea, Melena, Hematochezia, Other - Medications/Allergies Allergies/Adverse Reactions: Allergies Allergy/AdvReac Type Severity Reaction Status Date / Time No Known Allergies Allergy Verified 08/10/17 03:26 Medications: Current Medications Acetaminophen (Tylenol) 500 mg PO Q6H PRN PRN Reason: Pain Last Admin: 08/30/17 17:24 Dose: 500 mg Acetaminophen/Codeine Phosphate (Tylenol #3) 1 tab PO Q4H PRN PRN Reason: Mild Pain (1-3) Acetaminophen/Codeine Phosphate (Tylenol #3) 2 tab PO Q4H PRN PRN Reason: Moderate Pain (4-6) Amitriptyline HCl (Elavil) 50 mg PO [facility] Last Admin: 08/30/17 20:53 Dose: 50 mg Aspirin (Ecotrin) 81 mg PO DAILY [facility] Last Admin: 08/31/17 09:24 Dose: 81 mg Atorvastatin Calcium (Lipitor) 40 mg PO [facility] Last Admin: 08/30/17 20:55 Dose: 40 mg Bisacodyl (Dulcolax) 10 mg PO DAILYPRN PRN PRN Reason: Constipation Bisacodyl (Dulcolax) 10 mg SC Q24H PRN PRN Reason: Constipation Last Admin: 08/30/17 20:53 Dose: 10 mg Carvedilol (Coreg) 6.25 mg PO BID-[facility] Last Admin: 08/31/17 09:24 Dose: 6.25 mg Clopidogrel Bisulfate (Plavix) 75 mg PO DAILY [facility] Last Admin: 08/31/17 09:23 Dose: 75 mg Dextrose/Water (Dextrose 50%) 25 gm SLOW IVP PRN PRN PRN Reason: Hypoglycemia Glucagon (Glucagon) 1 mg IM PRN PRN PRN Reason: Hypoglycemia Dextrose/Water (D5w) 1,000 mls @ 0 mls/hr IV .Q0M PRN; As Directed PRN Reason: Hypoglycemia Ibuprofen (Motrin) 600 mg PO Q6H PRN PRN Reason: Pain Last Admin: 08/28/17 10:26 Dose: 600 mg Insulin Human Regular (Humulin R) 0 units SC .MILD SLIDING SCALE PRN PRN Reason: Mild Correctional Scale Insulin Human Regular (Humulin R) 0 units SC .BEDTIME SLIDING SC PRN PRN Reason: Bedtime Correctional Scale Magnesium Citrate (Citrate Of Magnesia 300 Ml Bot) 300 ml PO NOW [facility] Stop: 08/31/17 17:30 Nitroglycerin (Nitrostat) 0.4 mg SL Q5MIN PRN PRN Reason: Chest Pain Ondansetron HCl (Zofran) 4 mg IVP Q6H PRN PRN Reason: Nausea/Vomiting Polyethylene Glycol (Miralax) 17 gm PO DAILY [facility] Last Admin: 08/31/17 09:23 Dose: 17 gm Pregabalin (Lyrica) 300 mg PO HS [facility] Last Admin: 08/30/17 20:54 Dose: 300 mg Senna (Senokot) 2 tab PO HSPRN PRN PRN Reason: Constipation Last Admin: 08/30/17 22:15 Dose: 2 tab Senna/Docusate Sodium (Senokot S) 1 tab PO BID [facility] Last Admin: 08/31/17 09:24 Dose: 1 tab Sodium Chloride (Flush - Normal Saline) 10 ml IVF Q12HR [facility] Last Admin: 08/31/17 09:32 Dose: 10 ml Sodium Chloride (Flush - Normal Saline) 10 ml IVF PRN PRN PRN Reason: Saline Flush Tramadol HCl (Ultram) 50 mg PO Q6H PRN PRN Reason: Moderate Pain (4-6) Last Admin: 08/29/17 21:39 Dose: 50 mg
[2017-08-31] MEDS: Pregabalin 75 MG CAP PO SCH (21:21)
[2017-08-31] MEDS: Atorvastatin Calcium 40 MG TAB PO SCH (21:21)
[2017-08-31] MEDS: Amitriptyline HCl 25 MG TAB PO SCH (21:21)
[2017-08-31] MEDS: Famotidine 20 MG TAB PO SCH (21:21)
[2017-09-01] MEDS: Heparin 5,000 UNITS/ML VIAL SC SCH (01:37)
[2017-09-01] MEDS: Polyethylene Glycol 3350 17 GM Packet PO SCH (08:41)
--- NOTE | 2017-09-01 08:54 | PDOC.CTH ---
Cardiology Progress Note - Objective Vital Signs Temp Pulse Resp BP BP Pulse Ox 09/01/17 08:11 98.1 F 109 H 16 93/64 92 L 09/01/17 04:25 97.6 F 107 H 20 106/66 95 08/31/17 23:45 99.3 F 106 H 20 95/62 94 L Weight 175 lb 8 oz 08/31/17 09/01/17 09/02/17 06:59 06:59 06:59 Intake Total 960 480 Output Total 550 Balance 410 480 - Labs Result Diagrams: 08/31/17 05:52 08/31/17 05:52 Troponin/CKMB CK-MB (CK-2) 1.1 ng/mL (0-6.6) 08/27/17 23:34 Troponin I 2.775 ng/mL (< 0.028) H* 08/27/17 23:34 - Assessment/Plan 1. Elevated torponin 2. Severe CAD 3. Occluded graft to RCA Pt with patent graft to LAD, OBM and distal circ and diagonal Graft to RCA is occluded. [place] RCA ostial occlusion Treat medically. No other reasonable options
--- NOTE | 2017-09-01 09:39 | PQF ---
CLINICAL DOCUMENTATION IMPROVEMENT CLARIFICATION FORM: ICD-10 Updated PLEASE DO AN ADDENDUM TO THE PROGRESS NOTE WITH ANY DOCUMENTATION UPDATES OR ADDITIONS AND CARRY THROUGH TO DC SUMMARY. THANK YOU. DATE: 09/01 ATTN: DR. DAVID GANDHI Please exercise your independent, professional judgment in responding to the clarification form. Clinical indicators are provided on the bottom of this form for your review. Please check appropriate box(s) to clarify if the following diagnosis has been ruled in or ruled out: ? NSTEMI [ ] Ruled in diagnosis [ ] Continue to treat [ ] Resolved [ ] Ruled out diagnosis [ ] Other diagnosis [ ] Unable to determine For continuity of documentation, please document condition throughout progress notes and discharge summary. Thank You. CLINICAL INDICATORS - SIGNS / SYMPTOMS / LABS PHYSICIAN H&P 08/27: HX OF PRESENT ILLNESS: RECENT HX OF CARDIAC BYPASS WHO WAS AT REHAB WHEN HE HAD CHEST PAIN THE EVENING PRIOR TO PRESENTATION. ...THE PATIENT HAD GROSSLY ELEVATED TROPONINS. THE PATIENT IS S/P CABG & THE DEGREE OF ELEVATED TROPONIN IS EXPECTED. ...THE PATIENT ALSO HAD PROGRESSIVELY INCREASING TROPONINS, TRANSFERRED TO OUR FACILITY OVER CONCERN OF POTENTIAL REINFARCTION POST-CABG. ASSESSMENT: 1) CHEST PAIN, CONCERN FOR REINFARCTION VS ELEVATION 2/2 CABG PHYSICIAN PN 08/29: PLAN: CHEST PAIN, CURRENTLY S/P LHC W/AN IMPAIRED GRAFT PHYSICIAN PN 08/30 & 15: IMPRESSION: 1) CHEST PAIN W/ELEVATED TROPONINS, ? NSTEMI, S/P CATH THIS AFTERNOON TROPONIN I: 3.354 (08/26); 4.037, 4.212, 2.779, 2.775 (08/27) RISK FACTORS: CABG (08/04/2017) OCCLUDED RCA GRAFT (CARDIOLOGY PN 09/01) TREATMENTS: CARDIOLOGY CONSULT L HEART CATH W/GRAFTS (08/29) THANK YOU! Tabitha (This form is maintained as a part of the permanent medical record) 2014 [employer]. All Rights Reserved Tabitha Darnell RN, BSN [email or web address] Office: [phone] [facility] HOSPITALHowie
[2017-09-01] MEDS: Famotidine 20 MG TAB PO SCH ×2 (09:50→21:07)
[2017-09-01] MEDS: Clopidogrel Bisulfate 75 MG TAB PO SCH (09:50)
[2017-09-01] MEDS: Aspirin 81 mg Enteric Coated Tablet PO SCH (09:50)
[2017-09-01] MEDS: Senokot S 8.6-50 MG TAB PO SCH ×2 (09:52→21:08)
[2017-09-01] MEDS: Carvedilol 3.125 MG TAB PO SCH (10:11)
--- NOTE | 2017-09-01 17:17 | PRG ---
DATE OF SERVICE: 09/01/2017 SUBJECTIVE: Ms. Harris is doing well. No current complaints. I did review his films. He has a byp ass graft that is patent to the circumflex artery, diagonal branch and DELCID to the LAD. The graft to the right coronary is occluded. He had a previous chronic right coronary artery occlusion. OBJECTIVE: VITAL SIGNS: Blood pressure 101/73, pulse 109, respirations 20. LUNGS: Clear to auscultation. CARDIAC: Regular rate and rhythm. ABDOMEN: Soft, nontender, nondistended. EXTREMITIES: No edema. IMPRESSION: 1. Non-Q wave myocardial infarction. 2. Severe coronary artery disease. 3. Status blood pressure. RECOMMENDATIONS: At this point, it is not reasonable to proceed with intervention to the saphenous v ein graft to the right coronary artery. The right coronary is completely occluded in the near ostial position. I would continue with medical therapy. It would be okay from my standpoint transferred t o a skilled facility.
[2017-09-01] MEDS: Amitriptyline HCl 25 MG TAB PO SCH (21:07)
[2017-09-01] MEDS: Pregabalin 75 MG CAP PO SCH (21:07)
[2017-09-01] MEDS: Atorvastatin Calcium 40 MG TAB PO SCH (21:07)
--- NOTE | 2017-09-01 22:18 | PDOC.PN ---
- Subjective Encounter Start Date: 09/01/17 Encounter Start Time: 16:30 Patient seen and examined for CP. No new complaints. No overnight events - Objective Resuscitation Status: Resuscitation Status DNR:Do Not Resuscitate MAR Reviewed: Yes Vital Signs & Weight: Vital Signs (12 hours) Temp Pulse Resp BP Pulse Ox 09/01/17 19:15 98.3 F 111 H 18 107/66 94 L 09/01/17 16:20 98.5 F 108 H 18 103/63 96 09/01/17 11:58 98.6 F 111 H 18 95/61 93 L Weight Weight 175 lb 8 oz I&O: 08/31/17 09/01/17 09/02/17 06:59 06:59 06:59 Intake Total 960 480 960 Output Total 550 Balance 410 480 960 Result Diagrams: 09/02/17 05:03 09/02/17 05:03 Additional Labs: Accuchecks 09/01/17 09/01/17 09/01/17 16:18 12:39 10:42 POC Glucose 135 H 173 H 180 H 09/01/17 06:30 POC Glucose 142 H EKG Reviewed by me: Yes (Tele SR) Phys Exam - Physical Examination Constitutional: NAD Respiratory: no wheezing, no rhonchi Cardiovascular: RRR, no rub Gastrointestinal: soft, non-tender, positive bowel sounds Musculoskeletal: no edema Neurological: moves all 4 limbs Dx/Plan - Plan DVT proph w/SCDs (Patient ambulating) IMPRESSION: 1. NSTEMI 2. CAD s/p recent CABG 3. HTN 4. DM2- on Sliding scale 5. GERD/ Chronic Alcohol use/ CKD 2 /Constipation PLAN: Cont to monitor Cont ASA/Plavix/Coreg/Statins Cont current meds as below DC to SNF after insurance approval Review of Systems - Medications/Allergies Allergies/Adverse Reactions: Allergies Allergy/AdvReac Type Severity Reaction Status Date / Time No Known Allergies Allergy Verified 08/10/17 03:26 Medications: Current Medications Acetaminophen (Tylenol) 500 mg PO Q6H PRN PRN Reason: Pain Last Admin: 08/30/17 17:24 Dose: 500 mg Acetaminophen/Codeine Phosphate (Tylenol #3) 1 tab PO Q4H PRN PRN Reason: Mild Pain (1-3) Acetaminophen/Codeine Phosphate (Tylenol #3) 2 tab PO Q4H PRN PRN Reason: Moderate Pain (4-6) Amitriptyline HCl (Elavil) 50 mg PO HS [facility] Last Admin: 09/01/17 21:07 Dose: 50 mg Aspirin (Ecotrin) 81 mg PO DAILY [facility] Last Admin: 09/01/17 09:50 Dose: 81 mg Atorvastatin Calcium (Lipitor) 40 mg PO HS [facility] Last Admin: 09/01/17 21:07 Dose: 40 mg Bisacodyl (Dulcolax) 10 mg PO DAILYPRN PRN PRN Reason: Constipation Bisacodyl (Dulcolax) 10 mg [place] Q24H PRN PRN Reason: Constipation Last Admin: 08/30/17 20:53 Dose: 10 mg Clopidogrel Bisulfate (Plavix) 75 mg PO DAILY [facility] Last Admin: 09/01/17 09:50 Dose: 75 mg Dextrose/Water (Dextrose 50%) 25 gm SLOW IVP PRN PRN PRN Reason: Hypoglycemia Famotidine (Pepcid) 20 mg PO BID [facility] Last Admin: 09/01/17 21:07 Dose: 20 mg Glucagon (Glucagon) 1 mg IM PRN PRN PRN Reason: Hypoglycemia Dextrose/Water (D5w) 1,000 mls @ 0 mls/hr IV .Q0M PRN; As Directed PRN Reason: Hypoglycemia Ibuprofen (Motrin) 600 mg PO Q6H PRN PRN Reason: Pain Last Admin: 08/28/17 10:26 Dose: 600 mg Insulin Human Regular (Humulin R) 0 units SC .MILD SLIDING SCALE PRN PRN Reason: Mild Correctional Scale Last Admin: 09/01/17 13:57 Dose: 2 units Insulin Human Regular (Humulin R) 0 units SC .BEDTIME SLIDING SC PRN PRN Reason: Bedtime Correctional Scale Last Admin: 08/31/17 21:29 Dose: 3 unit Nitroglycerin (Nitrostat) 0.4 mg SL Q5MIN PRN PRN Reason: Chest Pain Ondansetron HCl (Zofran) 4 mg IVP Q6H PRN PRN Reason: Nausea/Vomiting Polyethylene Glycol (Miralax) 17 gm PO DAILY [facility] Last Admin: 09/01/17 08:41 Dose: Not Given Pregabalin (Lyrica) 300 mg PO [facility] Last Admin: 09/01/17 21:07 Dose: 300 mg Senna (Senokot) 2 tab PO HSPRN PRN PRN Reason: Constipation Last Admin: 08/30/17 22:15 Dose: 2 tab Senna/Docusate Sodium (Senokot S) 1 tab PO BID [facility] Last Admin: 09/01/17 21:08 Dose: 1 tab Sodium Chloride (Flush - Normal Saline) 10 ml IVF Q12HR [facility] Last Admin: 09/01/17 21:08 Dose: Not Given Sodium Chloride (Flush - Normal Saline) 10 ml IVF PRN PRN PRN Reason: Saline Flush Tramadol HCl (Ultram) 50 mg PO Q6H PRN PRN Reason: Moderate Pain (4-6) Last Admin: 08/29/17 21:39 Dose: 50 mg
[2017-09-02 06:06] LABS: #Eosinphils 0.3 thou/uL (0.0-0.7); #Lymphocytes 1.7 thou/uL (1.20-3.40); #Monocytes 0.8 thou/uL (0.11-0.59); #Neutrophils 4.4 thou/uL (1.40-6.50); %Basophils 0.6 % (0.0-1.0); %Lymphocytes 23.8 % (21.0-51.0); %Monocytes 10.8 % (0.0-10.0); %Neutrophils 60.7 % (42.0-75.0); Hemoglobin 11.2 g/dL (14.0-18.0); Mean Corpuscular HGB CONC 33.4 g/dL (32.0-36.0); Mean Corpuscular Hemoglobin 31.4 pg (27.0-31.0); Mean Corpuscular Volume 94.1 fL (78.0-98.0); Mean Platelet Volume 6.8 fL (7.4-10.4); Platelet Count 273 thou/uL (130-400); RBC Distribution Width 13.1 % (11.5-14.5); Red Blood Cell (RBC) Count 3.55 mill/uL (4.70-6.10); White Blood Cell (WBC) Count 7.3 thou/uL (4.8-10.8)
[2017-09-02 06:15] LABS: Anion Gap 12 mmol/L (10-20); BUN (Urea Nitrogen) 12 mg/dL (8.4-25.7); Calc. Creatinine Clearance 82 mL/min (70-130); Carbon Dioxide 23 mmol/L (23-31); Chloride 106 mmol/L (98-107); Estimated GFR-MDRD 76; Glucose 114 mg/dL (80-115); Magnesium 1.9 mg/dL (1.6-2.6); Potassium 4.2 mmol/L (3.5-5.1); Sodium 137 mmol/L (136-145)
[2017-09-02] MEDS: Polyethylene Glycol 3350 17 GM Packet PO SCH (08:13)
[2017-09-02] MEDS: Senokot S 8.6-50 MG TAB PO SCH (08:13)
[2017-09-02] MEDS: Famotidine 20 MG TAB PO SCH (08:14)
[2017-09-02] MEDS: Clopidogrel Bisulfate 75 MG TAB PO SCH (08:14)
[2017-09-02] MEDS: Aspirin 81 mg Enteric Coated Tablet PO SCH (08:14)
[2017-09-02 15:24] VITALS: BP 130/63; TEMP 98
--- NOTE | 2017-09-02 17:12 | DIS ---
DATE OF ADMISSION: 08/27/2017 DATE OF DISCHARGE: 09/02/2017 DISCHARGE DISPOSITION: To [facility] facility. DISCHARGE MEDICATIONS: Plavix 75 mg daily, aspirin 81 mg daily, Lipitor 40 mg at bedtime, amitriptyline 50 mg at bedtime, DuoNeb as needed, metformin 1000 mg daily, Lopressor 25 mg twice a day, sublingual nitroglycerin as needed, Lyrica 300 mg at bedtime. INPATIENT CONSULTANTS: Cardiology, Dr. Carrera. BRIEF HOSPITAL COURSE: The patient is a 67-year-old white male with recent coronary artery bypass grafting, presented to the hospital with chest discomfort on 08/28/2017. Please refer to the history and physical for further details. The patient was admitted to the hospital with a diagnosis of non-ST elevation [place]. His maximum troponin this admission was 4.2. He underwent cardiac catheterization that showed sluggish flow in one bypass graft. Plavix has been started. For this reason, aspirin has been changed to 81 mg. He has been cleared by Cardiology for discharge. He is chest pain free. FINAL DIAGNOSES: 1. Non-ST elevation myocardial infarction. 2. Coronary artery disease, status post recent CABG with sluggish flow through one of the grafts. 3. Hypertension. 4. Diabetes mellitus type 2. 5. Gastroesophageal reflux disease. 6. Chronic alcohol use. 7. Chronic kidney disease stage 2. 8. Constipation. Plan of care was discussed with the patient in detail. He stated understanding. Total time coordinating discharge of this patient was 35 min. MTDD
== END 2017-09-02 15:59 | disposition swing bed (61) | DRG 282 ==
LOC: 2NO 14:15 → OBSVTOIN 14:15 → INTOOBSV 14:15 → OBSVTOIN 08-28 14:56 → INTOOBSV 08-28 14:56
PROVIDERS: ADMIT Internal Medicine; ATTEND Internal Medicine
PROC: 4A023N7 Measurement of Cardiac Sampling and Pressure, Left Heart, Percutaneous Approach (ICD-10-PCS; principal; 2017-08-29)
PROC: B2111ZZ Fluoroscopy of Multiple Coronary Arteries using Low Osmolar Contrast (ICD-10-PCS; 2017-08-29)
PROC: B2151ZZ Fluoroscopy of Left Heart using Low Osmolar Contrast (ICD-10-PCS; 2017-08-29)
DX: I21.4 Non-ST elevation (NSTEMI) myocardial infarction (principal); E11.22 Type 2 diabetes mellitus with diabetic chronic kidney disease; I12.9 Hypertensive chronic kidney disease with stage 1 through stage 4 chronic kidney disease, or unspecified chronic kidney disease; N18.2 Chronic kidney disease, stage 2 (mild); K21.9 Gastro-esophageal reflux disease without esophagitis; F10.10 Alcohol abuse, uncomplicated; K59.00 Constipation, unspecified; I25.10 Atherosclerotic heart disease of native coronary artery without angina pectoris; Z95.1 Presence of aortocoronary bypass graft; E78.5 Hyperlipidemia, unspecified; N52.9 Male erectile dysfunction, unspecified; R79.89 Other specified abnormal findings of blood chemistry; M19.90 Unspecified osteoarthritis, unspecified site
CPT/HCPCS: 36415; 36416; 80048; 83735; 85025; 93459; 93798; 99152; 99153; A4216; C1769; G8978-GP-CJ; G8979-GP-CJ; G8980-GP-CJ; G8987-GO-CJ; G8988-GO-CH; J1644; J1815; J2001; J2250